=== PATIENT | male | born 1950 | race Caucasian/White ===

== ENCOUNTER → 2016-06-26 | Outpatient (CLI) | payer BC ==
[~2016-06-26] MED LIST: CETI10TA10 PO; MULT-506 PO; VALA500T60 PO
[2016-06-26 14:47] LABS: BASO % 0.5 %; BASO ABS # 0.02 K/uL (0-0.2); COMPLETE YES; EOS % 4.4 %; HEMATOCRIT 44.4 % (42-52); IG% 0.5 %; LYMPH % 29.5 %; LYMPH ABS # 1.27 K/uL (1.2-3.4); MEAN CELL VOLUME 94.1 fL (80-100); MEAN CORPUSCULAR HEMOGLOBIN 33.5 pg (25-34); MEAN CORPUSCULAR HGB CONC 35.6 g/dl (32-36); MEAN PLATELET VOLUME 10.7 fL (7.4-10.4); NEUT % 59.1 %; PLATELET COUNT 214 K/uL (130-400); RED BLOOD COUNT 4.72 M/uL (4.7-6.1)
[2016-06-26 15:07] LABS: ALT/SGPT 18 U/L (12-78); AST/SGOT 16 U/L (15-37); BLOOD UREA NITROGEN 17 mg/dl (7-18); BUN/CREATININE RATIO 18.8 (10-20); CALCIUM 9.2 mg/dl (8.5-10.1); CARBON DIOXIDE 25 mmol/L (21-32); CHLORIDE 103 mmol/L (98-107); CREATININE 0.92 mg/dl (0.60-1.40); GLUCOSE 100 mg/dl (70-99); SODIUM 139 mmol/L (136-145)
[2016-06-26 15:17] LABS: CHOLESTEROL 212 mg/dl (0-200); CHOLESTEROL/HDL RATIO 2.9; HDL CHOLESTEROL 72 mg/dl; LDL CHOLESTEROL CALCULATED 124 mg/dl; TRIGLYCERIDES 79 mg/dl (0-150); VERY LOW DENSITY LIPOPROT CALC 16 mg/dl
[2016-06-27 07:02] LABS: ESTIMATED AVERAGE GLUCOSE 114 mg/dl; HA1C FLAG Normal (Normal)
--- NOTE | 2016-07-06 07:15 | CODING QUERY MEDICAL NECESSITY ---
CQSUPPORTING DIAGNOSIS NEEDED A supporting diagnosis is required for the test/procedure performed on this patient in order for us to be reimbursed by the patient's insurance. Please provide a supporting diagnosis for the following test/procedure listed below next to the test name along with your signature. *If there is no additional diagnosis for this patient that would support the following test/procedure please document that below next to the test/procedure. Test(s)/Procedure(s) that require a supporting diagnosis: DOS 06/26/16 [facility] SPECIFIC TEST ([facility]) Provider Signature: Date: Thank you Violetta Siegel [facility] Once completed, please kindly fax back to [phone] For questions please call [phone]
== END | disposition home or self-care (01) ==
LOC: C.LAB1850 12:32
PROVIDERS: ATTEND Internal Medicine
DX: Z00.00 Encounter for general adult medical examination without abnormal findings (principal); C43.9 Malignant melanoma of skin, unspecified; E78.00 Pure hypercholesterolemia, unspecified; R73.9 Hyperglycemia, unspecified; F52.8 Other sexual dysfunction not due to a substance or known physiological condition; Z12.5 Encounter for screening for malignant neoplasm of prostate

== ENCOUNTER → 2017-09-11 | Outpatient (CLI) | payer BC ==
[2017-09-11 09:40] LABS: BASO % 0.2 %; BASO ABS # 0.01 K/uL (0-0.2); EOS % 4.4 %; EOS ABS # 0.27 K/uL (0-0.5); HEMATOCRIT 45.7 % (42-52); HEMOGLOBIN 16.2 g/dL (14.0-18.0); IG# 0.02 K/uL (0.00-0.02); LYMPH % 24.1 %; LYMPH ABS # 1.49 K/uL (1.2-3.4); MEAN CELL VOLUME 94.4 fL (80-100); MEAN CORPUSCULAR HEMOGLOBIN 33.5 pg (25-34); MEAN CORPUSCULAR HGB CONC 35.4 g/dl (32-36); MEAN PLATELET VOLUME 9.6 fL (7.4-10.4); MONO % 4.9 %; NEUT % 66.1 %; NEUT ABS # 4.09 K/uL (1.4-6.5); PLATELET COUNT 214 K/uL (130-400); RED CELL DISTRIBUTION WIDTH CV 12.6 % (11.5-14.5); RED CELL DISTRIBUTION WIDTH SD 43.9 fL (36.4-46.3); WHITE BLOOD COUNT 6.18 K/uL (4.8-10.8)
[2017-09-11 09:56] LABS: BLOOD UREA NITROGEN 18 mg/dl (7-18); CALCIUM 9.1 mg/dl (8.5-10.1); CARBON DIOXIDE 27 mmol/L (21-32); CHOLESTEROL 234 mg/dl (0-200); CREATININE 1.06 mg/dl (0.60-1.40); GLUCOSE 115 mg/dl (70-99); LDL CHOLESTEROL CALCULATED 144 mg/dl; SODIUM 138 mmol/L (136-145)
[2017-09-11 10:01] LABS: HEMOGLOBIN A1C 5.8 % (4.5-5.6)
== END | disposition home or self-care (01) ==
LOC: C.LAB1850 08:23
PROVIDERS: ATTEND Physician Assistant
DX: Z00.00 Encounter for general adult medical examination without abnormal findings (principal); K21.9 Gastro-esophageal reflux disease without esophagitis; E78.00 Pure hypercholesterolemia, unspecified; R73.9 Hyperglycemia, unspecified; M54.2 Cervicalgia; R51 Headache

== ENCOUNTER → 2017-11-18 | Outpatient (CLI) | payer BC | END | disposition home or self-care (01) | LOC: C.PATHSPEC 11:51 | PROVIDERS: ATTEND Urology | DX: R97.20 Elevated prostate specific antigen [PSA] (principal) ==

== ENCOUNTER 2024-07-01 11:44 | Inpatient (IN) ==
[2024-07-01] MEDS: SODIUM CHLORIDE 0.9% 1,000 ML IV SCH (11:56)
--- NOTE | 2024-07-01 11:56 | Emergency Department Note ---
Impression & Plan Acute hypotension Admission ED Provider Note HPI: History obtained from patient. 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 Patient states he has had the pain for several weeks, he states he was complaining of pain in the area of his left abdomen and left upper quadrant area when he was at the [facility] and he began to get hypotensive and felt ill. Blood pressure was reportedly taken and was in the 60s systolic and therefore EMS was contacted and the patient was brought to the ED. On arrival here to the ED the patient is alert, has blood pressures in the 80s, heart rate is within normal limits on my initial assessment. ROS: - Per HPI Differential Diagnosis: Volume depletion, acute kidney injury, malignant pleural effusion, pneumothorax, vasovagal event, arrhythmia, pathologic fracture, PE, ACS, amongst other potential pathologies. *Outpatient medications and allergy history reviewed. PE: General: Alert, no acute distress HEENT: Normocephalic, trachea midline Eyes: Extraocular eye movement is intact, no scleral erythema Pulmonary: Diminished breath sounds on the left side, right side breath sounds are clear Cardio: Regular rate and rhythm GI: Abdomen is soft to palpation : No suprapubic tenderness MSK: No evidence of trauma or malformation of the extremities, no edema Skin: Pleurx catheter in place to the left chest wall without surrounding erythema, otherwise no evidence of rash Neuro: Alert, no focal deficits, ambulates all extremity spontaneously without issue Psychiatric: Cooperative INDEPENDENT INTERPRETATIONS: monitoring tech: (As interpreted by myself): - An order was placed for continuous cardiac monitoring - Patient was noted to be in sinus rhythm with a rate of 90 EKG: (As interpreted by myself): Rate: 97 Rhythm: Sinus rhythm Intervals: QTc 558 ms, otherwise within normal limits ST changes: No ST elevation Time: 1152 Chest x-ray: (As interpreted by myself): Left lower lobe atelectasis with tiny left pneumothorax Interventions provided in ED: -IV fluid bolus, IV albumin Medical Decision Making: IV was established and lab work obtained, patient was IV fluid resuscitated shortly after arrival. Blood pressure did gradually improve. Lab work shows no leukocytosis, hemoglobin is stable at 13.9, platelet count is normal, CMP shows above baseline creatinine of 1.56 for which the patient was given IV fluids, BUN is 59, transaminitis and elevated bilirubin consistent with the patient's history of metastatic cancer. Troponin is negative. Procalcitonin is elevated at 2.42. CT imaging of the chest shows recurrent pleural effusion with Pleurx catheter in place with evidence of pathologic fracture at rib 11 where the patient is having pain on the left side. Also re-demonstrates left upper lobe mass consistent with the patient's history of small cell cancer. CT imaging of the abdomen pelvis did show metastatic disease that appears to be stable in comparison to previous imaging and not show any evidence of any critical findings. Patient remained somewhat hypotensive here in the ED but did improved over 100 systolic following fluid resuscitation and albumin. Given his presenting hypotension in addition to his multiple comorbidities I do feel he would benefit from admission for pain control and possibly palliative consultation as of not sure that he has many treatment options at this point. Patient was evaluated here at the bedside by pulmonology, his pleural effusion was drained by the pulmonology PA (Luis Fernando Rios). Patient was covered with IV ceftriaxone following blood cultures being obtained. I did discuss the patient's presentation with the on-call [facility] hospitalist, Dr. Terry, and the patient was placed for admission in stable condition. Consultants/Discussions held with other healthcare providers: -Hospitalist, Dr. Terry -Pulmonology, Luis Fernando Rios PA-C Disposition discussion held by myself with: -Patient Diagnosis: 1. Hypotension, acute 2. Acute kidney injury 3. Metastatic small cell lung cancer 4. Recurrent malignant pleural effusion Disposition: Admission Aguilar Zepeda DO Emergency Medicine Past Med/Surg History Problem List (Updated 07/01/24 @ 17:16 by Aguilar Zepeda DO) Acute hypotension (Acute) Advanced care planning/counseling discussion 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 Malignant pleural effusion 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 Cancer related pain 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 Lung mass Obstructive sleep apnea Primary hypertension Benign localized prostatic hyperplasia with lower urinary tract symptoms (LUTS) Elevated PSA Hypertension GERD without esophagitis Bilateral nonpulsatile tinnitus Obesity (BMI 30.0-34.9) Prediabetes (Chronic) Mixed hyperlipidemia Nasal congestion Dyspnea on exertion Former smoker Myalgia Close exposure to 2019-nCoV Ingrown toenail of left foot with infection (Acute) Laryngopharyngeal reflux (Acute) Inhibited sexual excitement (Acute) Hypercholesterolemia (Acute) Genital herpes simplex (Acute) Elevated blood pressure reading without diagnosis of hypertension (Acute) Cervicalgia (Acute) Anxiety disorder (Acute) Acid reflux disease (Acute) Nephrolithiasis Encounter for prostate cancer screening Rib pain on right side Injury Sleep apnea (Acute) cpap Medical History Osteoarthritis History of kidney stones Malignant melanoma Surgical History History of colonoscopy History of prostate biopsy History of left inguinal hernia repair History of melanoma excision History of Mohs micrographic surgery for skin cancer History of wisdom tooth extraction History of carpal tunnel release of both wrists Status post correction of deviated nasal septum History of tonsillectomy and adenoidectomy Family History Brother Family history of diabetes mellitus Family hx colonic polyps Other No family history of adverse response to anesthesia Social History Smoking Status: Never smoker Tobacco Type: Cigarettes Age Started Using Tobacco: 16; Age Quit Using Tobacco: 46; packs per day: 1; Second Hand Exposure: No; Do You Dip or Chew Tobacco: No; Hx Alcohol Use: Yes Alcohol type: hard liquor Hx Substance Use: No Preferred Language: Greenlandic Communication Ability: Effective Aircraft Communicator Required: No Beliefs That Will Affect Care: None marital status: Current Living Situation: Spouse current occupational status: retired Feels Safe at Home: Yes Dental Care, Regularly: Yes Seatbelt Use: always Sunscreen Use: Yes Assistive Devices: None Allergies Allergies Allergy/AdvReac Type Severity Reaction Status Date / Time amoxicillin [From Augmentin] Allergy Intermediate stomach Verified 06/25/24 14:32 pain clavulanic acid Allergy Intermediate stomach Verified 06/25/24 14:32 [From Augmentin] pain levofloxacin [From Levaquin] Allergy Mild . Verified 06/30/24 11:36 lisinopril AdvReac Mild Cough Verified 06/30/24 11:36 Home Meds Home Medications Medication Instructions Recorded Confirmed multivitamin 1 tab PO QAM 05/18/20 07/01/24 cholecalciferol (vitamin D3) 25 25 mcg PO DAILY 04/30/24 07/01/24 mcg (1,000 unit) capsule OxyContin 20 mg PO BID 06/30/24 07/01/24 metformin 500 mg tablet,extended 1,000 mg PO BID 06/30/24 07/01/24 release 24 hr Previous Rx's Medication Instructions Recorded valacyclovir 500 mg tablet 500 mg PO QAM #90 tabs 09/23/23 fluticasone propionate 50 1 spray intranasal BID #16 grams 09/24/23 mcg/actuation nasal spray,suspension omeprazole 40 mg capsule,delayed 40 mg PO DAILY #90 caps 09/30/23 release tamsulosin 0.4 mg capsule 0.4 mg PO DAILY #90 caps 11/20/23 tadalafil 20 mg tablet 20 mg PO DAILY #90 tabs 12/20/23 olmesartan 5 mg tablet 5 mg PO DAILY #90 tabs 03/06/24 rosuvastatin 10 mg tablet 10 mg PO DAILY #90 tabs 03/06/24 albuterol sulfate 90 mcg/actuation 2 puff inhalation Q6H PRN 05/23/24 aerosol inhaler shortness of breath or wheezing #8.5 grams albuterol 90 mcg-budesonide 80 2 inh inhalation QID PRN shortness 05/26/24 mcg/actuation HFA aerosol inhaler of breath #5.9 grams (Airsupra) azelastine 137 mcg (0.1 %) nasal 1 spray intranasal BID #30 mL 06/03/24 spray apixaban 5 mg tablet (Eliquis) 5 mg PO BID #180 tabs 06/23/24 benzonatate 200 mg capsule 200 mg PO TID PRN cough #30 caps 06/23/24 lorazepam 0.5 mg tablet 0.5 mg PO BID PRN 06/23/24 anxiety/panic/insomnia #60 tabs paroxetine HCl 20 mg tablet 20 mg PO HS #30 tabs 06/23/24 mirtazapine 7.5 mg tablet 7.5 mg PO DAILY PRN insomnia #30 06/25/24 tabs sennosides 8.6 mg tablet (Senna 8.6 mg PO BID PRN constipation #60 06/25/24 Laxative) tabs Results & Data (ED) Vital Signs Vital Signs - 24 hr 03/12/25 11:50 07/01/24 11:56 07/01/24 12:00 Temperature 36.5 C Temperature Source Oral Pulse Rate 92 H Pulse Rate [Apical] Pulse Rate from SpO2 Sensor Respiratory Rate 18 Respiratory Effort / Characteristics Respiratory Depth Blood Pressure 83/63 L 79/61 L Blood Pressure [Right Arm] Blood Pressure Mean 69 69 Blood Pressure Mean [Right Arm] Pulse Oximetry 94 93 Oxygen Delivery Method Room Air Room Air Oxygen Flow Rate Sepsis Recent Fever Within 48 Hours No Sepsis New/Unexplained Change in Mental Status No Sepsis Action Taken by Nursing No Action Required Oxygen Flow Rate - Titration Pulse Oximetry Post Tiitration 07/01/24 12:03 07/01/24 12:10 07/01/24 12:14 Temperature Temperature Source Pulse Rate 92 H Pulse Rate [Apical] Pulse Rate from SpO2 Sensor 92 H Respiratory Rate 23 Respiratory Effort / Characteristics Respiratory Depth Blood Pressure 68/57 L 84/63 L Blood Pressure [Right Arm] Blood Pressure Mean 59 67 Blood Pressure Mean [Right Arm] Pulse Oximetry 93 Oxygen Delivery Method Oxygen Flow Rate 2 Sepsis Recent Fever Within 48 Hours Sepsis New/Unexplained Change in Mental Status Sepsis Action Taken by Nursing Oxygen Flow Rate - Titration Pulse Oximetry Post Tiitration 07/01/24 12:18 07/01/24 12:20 07/01/24 12:27 Temperature Temperature Source Pulse Rate 90 92 H Pulse Rate [Apical] Pulse Rate from SpO2 Sensor 91 H 88 Respiratory Rate 23 20 Respiratory Effort / Characteristics Respiratory Depth Blood Pressure 87/56 L Blood Pressure [Right Arm] Blood Pressure Mean 65 Blood Pressure Mean [Right Arm] Pulse Oximetry 92 95 Oxygen Delivery Method Oxygen Flow Rate 2 2 Sepsis Recent Fever Within 48 Hours Sepsis New/Unexplained Change in Mental Status Sepsis Action Taken by Nursing Oxygen Flow Rate - Titration Pulse Oximetry Post Tiitration 07/01/24 12:28 07/01/24 12:30 07/01/24 12:36 Temperature Temperature Source Pulse Rate 90 Pulse Rate [Apical] Pulse Rate from SpO2 Sensor 89 Respiratory Rate 18 Respiratory Effort / Characteristics Respiratory Depth Blood Pressure 96/45 L Blood Pressure [Right Arm] Blood Pressure Mean 80 Blood Pressure Mean [Right Arm] Pulse Oximetry 88 L 93 Oxygen Delivery Method Room Air Oxygen Flow Rate 2 Sepsis Recent Fever Within 48 Hours Sepsis New/Unexplained Change in Mental Status Sepsis Action Taken by Nursing Oxygen Flow Rate - Titration 2 Pulse Oximetry Post Tiitration 93 03/12/25 12:40 07/01/24 12:45 07/01/24 12:51 Temperature Temperature Source Pulse Rate 90 Pulse Rate [Apical] Pulse Rate from SpO2 Sensor 89 Respiratory Rate 13 Respiratory Effort / Characteristics Respiratory Depth Blood Pressure 91/61 L 91/62 L Blood Pressure [Right Arm] Blood Pressure Mean 63 63 Blood Pressure Mean [Right Arm] Pulse Oximetry 93 Oxygen Delivery Method Oxygen Flow Rate 2 Sepsis Recent Fever Within 48 Hours Sepsis New/Unexplained Change in Mental Status Sepsis Action Taken by Nursing Oxygen Flow Rate - Titration Pulse Oximetry Post Tiitration 07/01/24 12:57 07/01/24 13:13 07/01/24 13:15 Temperature Temperature Source Pulse Rate 91 H 92 H 86 Pulse Rate [Apical] Pulse Rate from SpO2 Sensor 90 86 Respiratory Rate 14 20 Respiratory Effort / Characteristics Respiratory Depth Blood Pressure Blood Pressure [Right Arm] Blood Pressure Mean Blood Pressure Mean [Right Arm] Pulse Oximetry 93 95 Oxygen Delivery Method Oxygen Flow Rate 2 2 Sepsis Recent Fever Within 48 Hours Sepsis New/Unexplained Change in Mental Status Sepsis Action Taken by Nursing Oxygen Flow Rate - Titration Pulse Oximetry Post Tiitration 07/01/24 13:17 07/01/24 13:18 07/01/24 13:20 Temperature Temperature Source Pulse Rate 85 Pulse Rate [Apical] 85 Pulse Rate from SpO2 Sensor 80 Respiratory Rate 18 22 Respiratory Effort / Characteristics Respiratory Depth Blood Pressure 94/64 L Blood Pressure [Right Arm] 104/66 Blood Pressure Mean 72 Blood Pressure Mean [Right Arm] 78 Pulse Oximetry 95 94 Oxygen Delivery Method Nasal Cannula Oxygen Flow Rate 2 2 Sepsis Recent Fever Within 48 Hours Sepsis New/Unexplained Change in Mental Status Sepsis Action Taken by Nursing Oxygen Flow Rate - Titration Pulse Oximetry Post Tiitration 07/01/24 13:27 07/01/24 13:30 07/01/24 13:36 Temperature Temperature Source Pulse Rate 88 84 Pulse Rate [Apical] Pulse Rate from SpO2 Sensor 88 85 Respiratory Rate 13 12 Respiratory Effort / Characteristics Respiratory Depth Blood Pressure 107/68 Blood Pressure [Right Arm] Blood Pressure Mean 85 Blood Pressure Mean [Right Arm] Pulse Oximetry 94 96 Oxygen Delivery Method Oxygen Flow Rate 2 2 Sepsis Recent Fever Within 48 Hours Sepsis New/Unexplained Change in Mental Status Sepsis Action Taken by Nursing Oxygen Flow Rate - Titration Pulse Oximetry Post Tiitration 07/01/24 13:42 07/01/24 13:50 07/01/24 13:50 Temperature Temperature Source Pulse Rate 88 Pulse Rate [Apical] Pulse Rate from SpO2 Sensor 88 Respiratory Rate 15 Respiratory Effort / Characteristics Respiratory Depth Blood Pressure 104/66 104/66 Blood Pressure [Right Arm] Blood Pressure Mean 72 72 Blood Pressure Mean [Right Arm] Pulse Oximetry 93 Oxygen Delivery Method Oxygen Flow Rate 2 Sepsis Recent Fever Within 48 Hours Sepsis New/Unexplained Change in Mental Status Sepsis Action Taken by Nursing Oxygen Flow Rate - Titration Pulse Oximetry Post Tiitration 07/01/24 13:51 07/01/24 13:51 07/01/24 13:57 Temperature Temperature Source Pulse Rate 87 86 Pulse Rate [Apical] 90 Pulse Rate from SpO2 Sensor 81 86 Respiratory Rate 18 19 20 Respiratory Effort / Characteristics Non-Labored Spontaneous Respiratory Depth Normal Blood Pressure Blood Pressure [Right Arm] 104/66 Blood Pressure Mean Blood Pressure Mean [Right Arm] 78 Pulse Oximetry 95 95 94 Oxygen Delivery Method Nasal Cannula Oxygen Flow Rate 2 2 2 Sepsis Recent Fever Within 48 Hours Sepsis New/Unexplained Change in Mental Status Sepsis Action Taken by Nursing Oxygen Flow Rate - Titration Pulse Oximetry Post Tiitration 07/01/24 14:00 07/01/24 14:00 07/01/24 14:10 Temperature Temperature Source Pulse Rate Pulse Rate [Apical] Pulse Rate from SpO2 Sensor Respiratory Rate Respiratory Effort / Characteristics Respiratory Depth Blood Pressure 101/66 101/66 99/66 L Blood Pressure [Right Arm] Blood Pressure Mean 77 77 75 Blood Pressure Mean [Right Arm] Pulse Oximetry Oxygen Delivery Method Oxygen Flow Rate Sepsis Recent Fever Within 48 Hours Sepsis New/Unexplained Change in Mental Status Sepsis Action Taken by Nursing Oxygen Flow Rate - Titration Pulse Oximetry Post Tiitration 07/01/24 14:12 07/01/24 14:30 07/01/24 17:00 Temperature Temperature Source Pulse Rate 87 Pulse Rate [Apical] 85 91 H Pulse Rate from SpO2 Sensor 87 Respiratory Rate 15 20 18 Respiratory Effort / Characteristics Non-Labored Spontaneous Respiratory Depth Blood Pressure Blood Pressure [Right Arm] 106/73 88/62 L Blood Pressure Mean Blood Pressure Mean [Right Arm] 84 70 Pulse Oximetry 95 94 95 Oxygen Delivery Method Nasal Cannula Room Air Oxygen Flow Rate 2 2 Sepsis Recent Fever Within 48 Hours Sepsis New/Unexplained Change in Mental Status Sepsis Action Taken by Nursing Oxygen Flow Rate - Titration Pulse Oximetry Post Tiitration Laboratory Data 07/01/24 11:59 07/01/24 11:59 Lab Results 07/01/24 07/01/24 Range/Units 11:59 17:00 WBC 10.30 (4.8-10.8) K/ul RBC 4.27 L (4.70-6.10) M/uL Hgb 13.9 L (14.0-18.0) g/dl Hct 41.6 L (42.0-52.0) % MCV 97.4 (80.0-100.0) fL MCH 32.6 (25.0-34.0) pg MCHC 33.4 (32.0-36.0) g/dL RDW Std Deviation 45.6 (36.4-46.3) fL RDW Coeff of Toribio 12.7 (11.5-14.5) % Plt Count 217 (130-400) K/uL MPV 11.0 (9.4-12.4) fL Immature Gran % (Auto) 2.5 % Neut % (Auto) 80.9 % Lymph % (Auto) 9.9 % Coles % (Auto) 6.4 % Eos % (Auto) 0.1 % Baso % (Auto) 0.2 % Neut # (Auto) 8.33 H (1.40-6.50) K/uL Lymph # (Auto) 1.02 L (1.20-3.40) K/uL Coles # (Auto) 0.66 H (0.11-0.59) K/uL Eos # (Auto) 0.01 (0.00-0.50) K/uL Baso # (Auto) 0.02 (0.00-0.20) K/uL Immature Gran # (Auto) 0.26 H (0.01-0.20) K/uL Sodium 142 (136-145) mmol/L Potassium 4.5 (3.5-5.1) mmol/L Chloride 106 (98-107) mmol/L Carbon Dioxide 31 (21-32) mmol/L Anion Gap 5 (3-11) BUN 59 H (6-23) mg/dl Creatinine 1.56 H (0.6-1.4) mg/dl Est Cr Clr Drug Dosing 46.3 ml/min eGFR 46.61 BUN/Creatinine Ratio 37.8 H (10-20) Glucose 93 (70-99(Fasting)) mg/dl Lactate 2.0 (0.4-2.0) mmol/L Calcium 10.8 H (8.6-10.3) mg/dl Magnesium 2.2 (1.7-2.4) mg/dl Total Bilirubin 1.1 H (0.2-1.0) mg/dl Direct Bilirubin 0.6 H (0-0.2) mg/dl AST 116 H (13-39) U/L ALT 109 H (7-52) U/L Alkaline Phosphatase 499 H (34-104) U/L Troponin I High Sens 10.6 (0-20) pg/ml Total Protein 5.3 L (6.0-8.3) gm/dl Albumin 2.9 L (3.4-5.0) gm/dl Procalcitonin 2.42 H (0-0.5) ng/ml Urine Color Dark Yellow Urine Appearance Cloudy A (Clear) Urine pH 5.0 (4.5-7.5) Ur Specific [place] 1.038 H (1.000-1.030) Urine Protein 1+ H (Negative) Urine Glucose (UA) Negative (Negative) Urine Ketones Trace H (Negative) Urine Blood Negative (Negative) Urine Nitrite Negative (Negative) Urine Bilirubin 1+ H (Negative) Urine Urobilinogen Negative (Negative) Ur Leukocyte Esterase Trace H (Negative) Urine WBC (Auto) 0-5 (0-5) /hpf Urine RBC (Auto) 0-2 (0-2) /hpf U Hyaline Cast (Auto) >20 H (0-2) /lpf U Epithel Cells (Auto) 11-20 H (0-2) /hpf Urine Bacteria (Auto) None Seen (None Seen) Hyaline Casts Present A (None Presnt) /lpf Granular Casts Present A (None Prsent) /lpf Urine Mucus Present A (None Prsent) Administered Medications Discontinued Medications Sodium Chloride (Nss) 1,000 mls @ 999 mls/hr IV .Q1H1M RAMESH Stop: 07/01/24 14:00 Last Infusion: 07/01/24 14:15 Dose: Infused Documented By: Admin: 07/01/24 13:26 Dose: 999 mls/hr Documented By: Infusion: 07/01/24 13:26 Dose: Infused Documented By: Admin: 07/01/24 11:56 Dose: 999 mls/hr Documented By: NIKITA Albumin Human (Albumin 5%) 250 mls @ 500 mls/hr IV ONE ONE Stop: 07/01/24 14:31 Last Admin: 07/01/24 14:44 Dose: 500 mls/hr Documented By: NIKITA Cefepime HCl (Maxipime 2000mg) 2,000 mg in 20 mls @ 5 mls/min IV NOW STA; Protocol Stop: 07/01/24 14:13 Last Admin: 07/01/24 14:45 Dose: 5 mls/min Documented By: NIKITA Ioversol (Optiray 320 100ml) 90 ml IV ONCE ONE Stop: 07/01/24 13:07 Last Admin: 07/01/24 13:07 Dose: 90 ml Documented By: JOSHUA Imaging Data Radiologist's Impression: Chest X-Ray 07/01/24 11:54 XR chest 1V portable CLINICAL HISTORY: Sepsis left chest tube COMPARISON STUDY: 06/30/2024 FINDINGS: Single view chest demonstrates recurrence of a tiny left apical pneumothorax. The findings are otherwise unchanged. The left pleural effusion is unchanged and the left chest tube is in similar position. There is persistent lower lobe and lingular atelectasis. There is nodular prominence of the right hilum which may be vascular superimposition. Cannot exclude lymphadenopathy. IMPRESSION: Recurrence of a tiny left apical pneumothorax. Right hilar prominence. ACT 112: Negative or not required by law. Electronically signed by: Sparkle Parker M.D. 07/01/2024 12:32 PM Abdomen/Pelvis CT 07/01/24 12:22 CT OF THE ABDOMEN AND PELVIS WITH CONTRAST CLINICAL HISTORY: Left-sided pain. Metastatic disease. COMPARISON STUDY: CT of the abdomen and pelvis June 09, 2024. PET/CT June 24, 2024. TECHNIQUE: Following IV administration of 90 mL of Optiray, axial images of the abdomen and pelvis were obtained from the lung bases to the proximal femurs. Images were reviewed in the axial, sagittal, and coronal planes. IV contrast was administered without complication. Automated exposure control was utilized for the study. A dose lowering technique was utilized adhering to the principles of ALARA. FINDINGS: A left Pleurx catheter, left pleural effusion, thoracic lymphadenopathy, and small left pneumothorax are better depicted on the chest CT which will be reported separately. There is no pneumatosis, free air or portal venous gas. Extensive hepatic metastases are similar to PET/CT of July 04, 2024. These have increased since CT of June 09, 2024. The liver is enlarged. There is no biliary or pancreatic ductal dilatation. Abdominal lymphadenopathy is similar to recent PET/CT. Portacaval lymph node on image 129 measures 2.5 x 2.7 cm. There is no hydronephrosis. Spleen, adrenal glands and pancreas are unremarkable. No evidence for a bowel obstruction. Colonic diverticulosis without evidence for acute diverticulitis. Sclerotic skeletal lesions are better depicted on recent PET/CT. A lesion within the lateral left 11th rib with probable pathologic fracture is noted. There are no pathologic fractures within the lumbar spine. IMPRESSION: 1. Extensive hepatic metastases and abdominal lymphadenopathy since, similar to PET/CT of June 24, 2024. 2. No bowel obstruction. 3. Skeletal metastases, better depicted on PET/CT. Probable pathologic fracture of the lateral left 11th rib. ACT 112: Negative or not required by law. Electronically signed by: Rajinder Pérez M.D. 07/01/2024 1:[address] 07/01/24 12:22 CT OF THE CHEST WITH IV CONTRAST CLINICAL HISTORY: Left-sided chest pain. Small cell lung cancer. COMPARISON STUDY: Chest CT June 05, 2024. PET/CT June 24, 2024. Chest radiograph performed earlier today. TECHNIQUE: Following IV administration of 90 mL of Optiray, helical axial images of the chest were obtained. Sagittal and coronal reconstructions were viewed as well as maximal intensity projections on an independent 3-D workstation. Automated exposure control was utilized for the study. A dose lowering technique was utilized adhering to the principles of ALARA. CT DOSE: 2466.31 mGy.cm FINDINGS: A Pleurx catheter within the anterior left hemithorax is in place. Moderate left pleural effusion has decreased in size since PET/CT of June 24, 2014. There is a small pneumothorax. Multiple enhancing pleural lesions are noted. Additional extrapleural lesions are present. Extensive thoracic lymphadenopathy is similar to PET/CT of June 24, 2024. A right paratracheal lymph node on image 52 of 229 measures 3.7 x 2.6 cm. Central left upper lobe mass which results in occlusion of the left upper lobe bronchus and left upper lobe collapse is similar to prior PET/CT. Measurements are difficult to obtain given adjacent lymphadenopathy. There is mass effect with narrowing upon several pulmonary arteries. The pulmonary arteries are not well opacified on this examination. There is no right pneumothorax. Size of the heart is normal. There is no pericardial effusion. Dilatation of the ascending aorta measuring 4.6 cm is unchanged. Multiple sclerotic skeletal lesions are better depicted on prior PET/CT. A mildly displaced pathologic fracture the anterior left 11th rib is noted. Abdomen and pelvis CT will be reported separately. Upper abdominal adenopathy in extensive hepatic metastases are better depicted on that exam. IMPRESSION: 1. Pleurx catheter within the left anterior hemithorax. Moderate-sized malignant left pleural effusion, decreased in size since PET/CT of June 24, 2024. Small left pneumothorax. 2. No significant change in extensive thoracic, left supraclavicular and upper abdominal lymphadenopathy since PET/CT of June 24, 2024. 3. Left upper lobe mass with resultant left upper lobe collapse, similar to PET/CT. 4. Skeletal metastases, including a pathologic fracture of the anterior left 11th rib, depicted on the abdominal CT which will be reported separately. 5. Extensive hepatic metastases. ACT 112: Negative or not required by law. Electronically signed by: Rajinder Pérez M.D. 07/01/2024 1:32 PM Discharge Plan Visit Data Chief Complaint: Hypotension ED Provider: Aguilar Zepeda Discharge Problem: Acute hypotension Forms Stand Alone Forms: [facility] Prescriptions Prescriptions: No Action valacyclovir 500 mg tablet 500 mg PO QAM Qty: 90 3RF fluticasone propionate 50 mcg/actuation spray,suspension 1 spray intranasal BID Qty: 16 2RF Rx Instructions: administer into each nostril omeprazole 40 mg capsule,delayed release(DR/EC) 40 mg PO DAILY Qty: 90 3RF tamsulosin 0.4 mg capsule 0.4 mg PO DAILY Qty: 90 3RF tadalafil 20 mg tablet 20 mg PO DAILY Qty: 90 3RF sennosides [Senna Laxative] 8.6 mg tablet 8.6 mg PO BID PRN (Reason: constipation) Qty: 60 0RF mirtazapine 7.5 mg tablet 7.5 mg PO DAILY PRN (Reason: insomnia) Qty: 30 2RF benzonatate 200 mg capsule 200 mg PO TID PRN (Reason: cough) Qty: 30 0RF paroxetine HCl 20 mg tablet 20 mg PO HS Qty: 30 2RF Eliquis 5 mg tablet 5 mg PO BID Qty: 180 0RF lorazepam 0.5 mg tablet 0.5 mg PO BID PRN (Reason: anxiety/panic/insomnia) Qty: 60 0RF rosuvastatin 10 mg tablet 10 mg PO DAILY Qty: 90 3RF olmesartan 5 mg tablet 5 mg PO DAILY Qty: 90 3RF cholecalciferol (vitamin D3) 25 mcg (1,000 unit) capsule 25 mcg PO DAILY azelastine 137 mcg (0.1 %) spray,non-aerosol 1 spray intranasal BID Qty: 30 3RF Airsupra 90-80 mcg/actuation HFA aerosol inhaler 2 inh inhalation QID PRN (Reason: shortness of breath) Qty: 5.9 1RF albuterol sulfate 90 mcg/actuation HFA aerosol inhaler 2 puff inhalation Q6H PRN (Reason: shortness of breath or wheezing) Qty: 8.5 0RF multivitamin Tablet 1 tab PO QAM OxyContin 20 mg tablet 20 mg PO BID metformin 500 mg tablet extended release 24 hr 1,000 mg PO BID Referrals Referrals: An Rowe MD [Primary Care Provider] -
[2024-07-01 12:23] LABS: Basophils # (auto) 0.02 K/uL (0.00-0.20); Basophils % (auto) 0.2 %; Eosinophils # (auto) 0.01 K/uL (0.00-0.50); Eosinophils % (auto) 0.1 %; Hematocrit (blood only) 41.6 % (42.0-52.0); Hemoglobin 13.9 g/dl (14.0-18.0); Immature Granulocytes # (auto) 0.26 K/uL (0.01-0.20); Immature Granulocytes % (auto) 2.5 %; Lymphocytes # (auto) 1.02 K/uL (1.20-3.40); Lymphocytes % (auto) 9.9 %; Mean Corpuscular Hemoglobin 32.6 pg (25.0-34.0); Mean Corpuscular Hgb Conc 33.4 g/dL (32.0-36.0); Mean Corpuscular Volume 97.4 fL (80.0-100.0); Monocytes # (auto) 0.66 K/uL (0.11-0.59); Monocytes % (auto) 6.4 %; Neutrophils # (auto) 8.33 K/uL (1.40-6.50); Neutrophils % (auto) 80.9 %; Platelet Count 217 K/uL (130-400); RDW Coefficient of Variation 12.7 % (11.5-14.5); RDW Standard Deviation 45.6 fL (36.4-46.3); Red Blood Count 4.27 M/uL (4.70-6.10)
--- NOTE | 2024-07-01 12:33 | XRay Report ---
XR chest 1V portable CLINICAL HISTORY: Sepsis left chest tube COMPARISON STUDY: 06/30/2024 FINDINGS: Single view chest demonstrates recurrence of a tiny left apical pneumothorax. The findings are otherwise unchanged. The left pleural effusion is unchanged and the left chest tube is in similar position. There is persistent lower lobe and lingular atelectasis. There is nodular prominence of th e right hilum which may be vascular superimposition. Cannot exclude lymphadenopathy. IMPRESSION: Recurrence of a tiny left apical pneumothorax. Right hilar prominence. ACT 112: Negative or not required by law. Electronically signed by: Sparkle Parker M.D. 07/01/2024 12:32 PM
[2024-07-01 12:44] LABS: Albumin Level 2.9 gm/dl (3.4-5.0); BUN Creatinine Ratio 37.8 (10-20); Bilirubin Direct 0.6 mg/dl (0-0.2); Bilirubin,Total 1.1 mg/dl (0.2-1.0); Calcium 10.8 mg/dl (8.6-10.3); Creatinine Clr Calc Pharmacy 46.3 ml/min; Magnesium 2.2 mg/dl (1.7-2.4); Potassium 4.5 mmol/L (3.5-5.1); Total Protein 5.3 gm/dl (6.0-8.3)
[2024-07-01 12:48] LABS: Troponin I High Sensitivity 10.6 pg/ml (0-20)
[2024-07-01] MEDS: OPTIRAY 320 100ml IV ONE (13:07)
--- NOTE | 2024-07-01 13:34 | CT Scan Report ---
CT OF THE CHEST WITH IV CONTRAST CLINICAL HISTORY: Left-sided chest pain. Small cell lung cancer. COMPARISON STUDY: Chest CT June 05, 2024. PET/CT June 24, 2024. Chest radiograph performed earli er today. TECHNIQUE: Following IV administration of 90 mL of Optiray, helical axial images of the chest were o btained. Sagittal and coronal reconstructions were viewed as well as maximal intensity projections o n an independent 3-D workstation. Automated exposure control was utilized for the study. A dose low ering technique was utilized adhering to the principles of ALARA. CT DOSE: 2466.31 mGy.cm FINDINGS: A Pleurx catheter within the anterior left hemithorax is in place. Moderate left pleural e ffusion has decreased in size since PET/CT of June 24, 2014. There is a small pneumothorax. Multiple enhancing pleural lesions are noted. Additional extrapleural lesions are present. Extensive thoracic lymphadenopathy is similar to PET/CT of June 24, 2024. A right paratracheal lymph node on image 52 of 229 measures 3.7 x 2.6 cm. Central left upper lobe mass which results in occlusion of the left upper lobe bronchus and left upper lobe collapse is similar to prior PET/CT. Measurements are difficult to obtain given adjacent lymphadenopathy. There is mass effect with narrowing upon several pulmonary ar teries. The pulmonary arteries are not well opacified on this examination. There is no right pneumoth orax. Size of the heart is normal. There is no pericardial effusion. Dilatation of the ascending aort a measuring 4.6 cm is unchanged. Multiple sclerotic skeletal lesions are better depicted on prior PET /CT. A mildly displaced pathologic fracture the anterior left 11th rib is noted. Abdomen and pelvis C T will be reported separately. Upper abdominal adenopathy in extensive hepatic metastases are better depicted on that exam. IMPRESSION: 1. Pleurx catheter within the left anterior hemithorax. Moderate-sized malignant left pleural effusio n, decreased in size since PET/CT of June 24, 2024. Small left pneumothorax. 2. No significant change in extensive thoracic, left supraclavicular and upper abdominal lymphadenopa thy since PET/CT of June 24, 2024. 3. Left upper lobe mass with resultant left upper lobe collapse, similar to PET/CT. 4. Skeletal metastases, including a pathologic fracture of the anterior left 11th rib, depicted on e abdominal CT which will be reported separately. 5. Extensive hepatic metastases. ACT 112: Negative or not required by law. Electronically signed by: Rajinder Pérez M.D. 07/01/2024 1:32 PM
--- NOTE | 2024-07-01 13:58 | CT Scan Report ---
CT OF THE ABDOMEN AND PELVIS WITH CONTRAST CLINICAL HISTORY: Left-sided pain. Metastatic disease. COMPARISON STUDY: CT of the abdomen and pelvis June 09, 2024. PET/CT June 24, 2024. TECHNIQUE: Following IV administration of 90 mL of Optiray, axial images of the abdomen and pelvis we re obtained from the lung bases to the proximal femurs. Images were reviewed in the axial, sagittal, and coronal planes. IV contrast was administered without complication. Automated exposure control wa s utilized for the study. A dose lowering technique was utilized adhering to the principles of ALARA . FINDINGS: A left Pleurx catheter, left pleural effusion, thoracic lymphadenopathy, and small left pne umothorax are better depicted on the chest CT which will be reported separately. There is no pneumato sis, free air or portal venous gas. Extensive hepatic metastases are similar to PET/CT of July 04. These have increased since CT of June 09, 2024. The liver is enlarged. There is no biliary o r pancreatic ductal dilatation. Abdominal lymphadenopathy is similar to recent PET/CT. Portacaval lym ph node on image 129 measures 2.5 x 2.7 cm. There is no hydronephrosis. Spleen, adrenal glands and pa ncreas are unremarkable. No evidence for a bowel obstruction. Colonic diverticulosis without evidence for acute diverticulitis. Sclerotic skeletal lesions are better depicted on recent PET/CT. A lesion within the lateral left 11th rib with probable pathologic fracture is noted. There are no pathologic fractures within the lumbar spine. IMPRESSION: 1. Extensive hepatic metastases and abdominal lymphadenopathy since, similar to PET/CT of June 24. 2. No bowel obstruction. 3. Skeletal metastases, better depicted on PET/CT. Probable pathologic fracture of the lateral left 1 1th rib. ACT 112: Negative or not required by law. Electronically signed by: Rajinder Pérez M.D. 07/01/2024 1:56 PM
[2024-07-01] MEDS: ALBUMIN 5% 250 ML IV ONE (14:44)
[2024-07-01] MEDS: CEFEPIME 2000MG 2,000 MG/20 ML SYR IV STA (14:45)
--- NOTE | 2024-07-01 15:52 | Pulmonary Consultation ---
Date of Consultation July 01, 2024 Assessment & Plan (1) Malignant pleural effusion: In the setting of extensive stage primary small cell lung cancer. PleurX catheter placed yesterday. There appears to be an area of trapped lung. 2500 mL of serosanguineous fluid was drained off yesterday. An additional 750 mL was drained today prior to the patient having discomfort. We will clamp the tube for now given his discomfort. Follow-up chest x-ray in the morning. If he were to develop chest discomfort would recommend immediate chest x-ray +/- resuming back to suction. (2) Extensive stage primary small cell carcinoma of lung: Scheduled to start induction chemotherapy today, however he was found to be hypotensive. Defer plans for chemotherapy to hematology/oncology moving forward. (3) 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: Patient with LEFT-sided anterior chest pain with findings of occult rib fracture. Likely resulting in his pain. (4) Advanced care planning/counseling discussion: Had an extensive conversation with the patient and family present reviewing his extensive metastatic small cell lung cancer burden and concerning symptoms. Patient has had significant output from his chest tube. Theoretically, this should improve with the induction of chemotherapy, but at this point the patient has had difficulty receiving that secondary to pain associated with occult fracture as well as hypotension. While we address these topics, the patient becomes tearful and states that he has had significant discomfort and is uncertain if this is something he wishes to proceed with. We did broach the subject of care planning moving forward including full code versus limited CODE STATUS, versus more of a comfort based approach and palliative moving forward. At this point, he is fine with current treatment. He does not want chest compressions. He does not want shocks. He is on the fence about vasopressors, but specifically reports he would not want them for any extended period of time. He is uncertain about cardiac dysrhythmia medications. Additionally, he is uncertain that he would wish to undergo endotracheal intubation. He is going to discuss this with his family and provide us with a more extensive list, however he does reiterate that he certainly does not want to be uncomfortable and if her symptoms were to decline, he would be more likely to go towards a comfort based approach focusing on quality of life rather than quantity at this juncture. Plan I have personally spent 45 minutes of critical care time in the direct managemen t of this patient. This is a life/limb threatening event. This includes time spent evaluating patient, direct bedside care, chart review, placing orders, interpretation of diagnostic studies, discussion with consultants, patient, and family members, as well as other required patient management activities. This time is exclusive of all separately billable procedures, and teaching time and separate from and in addition to any other critical care service time. History of Present Illness History of Present Illness Patient is a 74-year-old male with an unfortunate recent diagnosis of widely metastatic small cell lung cancer and new onset A-fib. Patient with recurrent LEFT-sided malignant effusion. He had undergone initial thoracentesis on 06/15/2024 with removal of 1000 mL of pleural fluid. During that diagnosis, he underwent a supraclavicular RIGHT sided lymph node biopsy which was positive for metastatic small cell disease. Pleural fluid was also positive for small cell cancer. Unfortunately, he had recurrence of the effusion and was seen by the pulmonary clinic in the outpatient setting and arranged to have Pleurx catheter placed for symptom management. He underwent Pleurx catheter placement yesterday. There did appear to be an area of trapped lung after procedure and he remained on suction for a few hours. This resolved and he was discharged home. He was noted to have discomfort to the LEFT-sided chest with palpation yesterday. He was [facility] today with attempts at induction of chemotherapy, however it does not appear as though this medication was started before he developed pain and associated hypotension. He was brought to the emergency department and received resuscitative IV fluids. His blood pressure remained stable. He is complaining of pain to the LEFT-sided anterior chest wall. No palpitations. No hemoptysis. He has a history of tobacco abuse and pipe smoking. No family history of lung cancer. Brother of prostate cancer. Allergies Allergy/AdvReac Type Severity Reaction Status Date / Time amoxicillin [From Augmentin] Allergy Intermediate stomach Verified 06/25/24 14:32 pain clavulanic acid Allergy Intermediate stomach Verified 06/25/24 14:32 [From Augmentin] pain levofloxacin [From Levaquin] Allergy Mild . Verified 06/30/24 11:36 lisinopril AdvReac Mild Cough Verified 06/30/24 11:36 Home Medications Medication Instructions Recorded Confirmed Type multivitamin 1 tab PO QAM 05/18/20 07/01/24 History valacyclovir 500 mg tablet 500 mg PO QAM #90 tabs 09/23/23 07/01/24 Rx fluticasone propionate 50 1 spray intranasal BID #16 grams 09/24/23 07/01/24 Rx mcg/actuation nasal spray,suspension omeprazole 40 mg capsule,delayed 40 mg PO DAILY #90 caps 09/30/23 07/01/24 Rx release tamsulosin 0.4 mg capsule 0.4 mg PO DAILY #90 caps 11/20/23 07/01/24 Rx tadalafil 20 mg tablet 20 mg PO DAILY #90 tabs 12/20/23 07/01/24 Rx olmesartan 5 mg tablet 5 mg PO DAILY #90 tabs 03/06/24 07/01/24 Rx rosuvastatin 10 mg tablet 10 mg PO DAILY #90 tabs 03/06/24 07/01/24 Rx cholecalciferol (vitamin D3) 25 25 mcg PO DAILY 04/30/24 07/01/24 History mcg (1,000 unit) capsule albuterol sulfate 90 mcg/actuation 2 puff inhalation Q6H PRN 05/23/24 07/01/24 Rx aerosol inhaler shortness of breath or wheezing #8.5 grams albuterol 90 mcg-budesonide 80 2 inh inhalation QID PRN shortness 05/26/24 07/01/24 Rx mcg/actuation HFA aerosol inhaler of breath #5.9 grams (Airsupra) azelastine 137 mcg (0.1 %) nasal 1 spray intranasal BID #30 mL 06/03/24 07/01/24 Rx spray apixaban 5 mg tablet (Eliquis) 5 mg PO BID #180 tabs 06/23/24 07/01/24 Rx benzonatate 200 mg capsule 200 mg PO TID PRN cough #30 caps 06/23/24 07/01/24 Rx lorazepam 0.5 mg tablet 0.5 mg PO BID PRN 06/23/24 07/01/24 Rx anxiety/panic/insomnia #60 tabs paroxetine HCl 20 mg tablet 20 mg PO HS #30 tabs 06/23/24 07/01/24 Rx mirtazapine 7.5 mg tablet 7.5 mg PO DAILY PRN insomnia #30 06/25/24 07/01/24 Rx tabs sennosides 8.6 mg tablet (Senna 8.6 mg PO BID PRN constipation #60 06/25/24 07/01/24 Rx Laxative) tabs OxyContin 20 mg PO BID 06/30/24 07/01/24 History metformin 500 mg tablet,extended 1,000 mg PO BID 06/30/24 07/01/24 History release 24 hr Patient History Medical History Osteoarthritis History of kidney stones Malignant melanoma Surgical History History of colonoscopy History of prostate biopsy History of left inguinal hernia repair History of melanoma excision History of Mohs micrographic surgery for skin cancer History of wisdom tooth extraction History of carpal tunnel release of both wrists Status post correction of deviated nasal septum History of tonsillectomy and adenoidectomy Family History Brother Family history of diabetes mellitus Family hx colonic polyps Other No family history of adverse response to anesthesia Social History Smoking Status: Never smoker Tobacco Type: Cigarettes Age Started Using Tobacco: 16; Age Quit Using Tobacco: 46; packs per day: 1; Second Hand Exposure: No; Do You Dip or Chew Tobacco: No; Hx Alcohol Use: Yes Alcohol type: hard liquor Hx Substance Use: No Preferred Language: Ukrainian Communication Ability: Effective 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 All else were negative. Physical Exam Physical Exam: VITAL SIGNS Vital signs and nursing notes were reviewed. GENERAL 74-year-old male appearing his stated age who is in no acute distress. Communicates well with provider and answers questions appropriately. SKIN RIGHT sided Pleurx catheter in place without surrounding erythema or ed dain noted. No discharge or drainage noted. Suture well in place. NOSE Midline and without cyanosis. MOUTH/OROPHARYNX Without perioral cyanosis. NECK Neck with FROM. LUNGS Chest wall evaluation demonstrates normal chest wall A:P diameter. Auscultation reveals diminished breath sounds at the LEFT sided lung base. CARDIAC RRR with S1/S2. No murmur, rubs, or gallops appreciated. ABDOMEN Abdominal inspection demonstrates a flat abdomen. EXTREMITIES Nail clubbing not present. No peripheral cyanosis. No pretibial edema present. +3/5 radial palpated throughout. PSYCH A&Ox3 and cooperates fully with examiner. Pt is very pleasant and interacts well with examiner. Results & Data Results & Data Vital Signs (Past 12 Hours) Vital Signs Temp Pulse Pulse Resp BP BP Pulse Ox 07/01/24 14:30 85 20 106/73 94 07/01/24 14:12 87 15 95 07/01/24 14:10 99/66 L 07/01/24 14:00 101/66 07/01/24 14:00 101/66 07/01/24 13:57 86 20 94 07/01/24 13:51 87 19 95 07/01/24 13:51 90 18 104/66 95 07/01/24 13:50 104/66 07/01/24 13:50 104/66 07/01/24 13:42 88 15 93 07/01/24 13:36 84 12 96 07/01/24 13:30 107/68 07/01/24 13:27 88 13 94 07/01/24 13:20 94/64 L 07/01/24 13:18 85 22 94 07/01/24 13:17 85 18 104/66 95 07/01/24 13:15 86 20 95 07/01/24 13:13 92 H 07/01/24 12:57 91 H 14 93 07/01/24 12:51 91/62 L 07/01/24 12:45 90 13 93 07/01/24 12:40 91/61 L 07/01/24 12:36 90 18 93 07/01/24 12:30 96/45 L 07/01/24 12:28 88 L 07/01/24 12:27 92 H 20 95 07/01/24 12:20 87/56 L 07/01/24 12:18 90 23 92 07/01/24 12:14 84/63 L 07/01/24 12:10 68/57 L 07/01/24 12:03 92 H 23 93 07/01/24 12:00 79/61 L 07/01/24 11:56 93 07/01/24 11:50 36.5 C 92 H 18 83/63 L 94 O2 Del Method O2 Flow Rate 07/01/24 14:30 Nasal Cannula 2 07/01/24 14:12 2 07/01/24 14:10 07/01/24 14:00 07/01/24 14:00 07/01/24 13:57 2 07/01/24 13:51 2 07/01/24 13:51 Nasal Cannula 2 07/01/24 13:50 07/01/24 13:50 07/01/24 13:42 2 07/01/24 13:36 2 07/01/24 13:30 07/01/24 13:27 2 07/01/24 13:20 07/01/24 13:18 2 07/01/24 13:17 Nasal Cannula 2 07/01/24 13:15 2 07/01/24 13:13 07/01/24 12:57 2 07/01/24 12:51 07/01/24 12:45 2 07/01/24 12:40 07/01/24 12:36 2 07/01/24 12:30 07/01/24 12:28 Room Air 07/01/24 12:27 2 07/01/24 12:20 07/01/24 12:18 2 07/01/24 12:14 07/01/24 12:10 07/01/24 12:03 2 07/01/24 12:00 07/01/24 11:56 Room Air 07/01/24 11:50 Room Air PG Care Time/CCT Total # of Minutes Spent Total Time Spent with Patient: Total time spent is greater than 50% in coordination of care (as documented) at patient's floor/unit and/or counseling patient: Coding Level of Care Code 21902 INT INP/OBS CARE 2MIN Diagnoses Malignant pleural effusion J91.0 Extensive stage primary small cell carcinoma of lung C34.90 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
--- NOTE | 2024-07-01 16:41 | History & Physical Report ---
Date of Service July 01, 2024 Assessment & Plan (1) Cancer related pain: (2) Extensive stage primary small cell carcinoma of lung: (3) Acute hypotension: (4) Sleep apnea: Plan intractable pain - due to metastatic small cell cancer -was on 5mg oxycodone prn - no real help. just started 20mg oxycontin bid yesterday - some help. pain still uncontrolled, however -discussed multimodal pain control. will trial oxycontin 30mg bid, oxycodone 7.5mg qid prn breakthrough, 650mg tylenol scheduled TID, lidocaine patch. for now keep hydromorphone IV prn breakthrough and titrate meds up/down as needed -miralax daily hypotension -nothing appearing septic/infectious/cardiogenic -suspect multifactorial - pain/fentanyl dropping BP transiently, low volume due to thora also contributing --> stable w normal HR while i was talking to him for quite a while -watchful waiting, maintenance fluids, bolus should hypotension recur metastatic small cell cancer -discussed risk/benefit of induction chemo from primary care perspective and would feel he's a good candidate to trial -> would watch overnight to ensure no recurrence of hypotension and if not, then if oncology able to treat inpatient would be favored approach for now OLEGARIO - likely due to hypotension/hypovolemia - follow up w fluids hypercalcemia - malignancy related elevated LFTs - from metastases afib - rates controlled. eliquis currently on hold. can probably resume - but for now since just had procedure yesterday and has very little margin of error for volume loss, even though no clear bleeding noted will hold off on eliquis for now and use lovenox for prophylaxis History of Present Illness Chief Complaint: intractable pain Primary Care Provider: An Rowe MD severe pain has been going on for quite a while - maybe worse since pleurX but really has been bad before that too terrible last month -> thought he had pneumonia - didn't get better w abx -> CT scan - metastatic cancer. small cell. was actually to have induction chemo today - but pain terrible and couldn't tolerate the pain - given fentanyl -> drop in BP temporarily. sent to ER both for BP and pain control. pain heavily L side of chest although does seem to have some more diffuse pain. pain worse w cough/deep breath/movement. again preceded pleurX placement has supportive family takes eliquis for afib - has been holding last several days due to pleurX placement family notes that heme/onc thought as long as he was stable they may be able to start induction chemo while inpatient Allergies Allergy/AdvReac Type Severity Reaction Status Date / Time amoxicillin [From Augmentin] Allergy Intermediate stomach Verified 06/25/24 14:32 pain clavulanic acid Allergy Intermediate stomach Verified 06/25/24 14:32 [From Augmentin] pain levofloxacin [From Levaquin] Allergy Mild . Verified 06/30/24 11:36 lisinopril AdvReac Mild Cough Verified 06/30/24 11:36 Home Medications Medication Instructions Recorded Confirmed Type multivitamin 1 tab PO QAM 05/18/20 07/01/24 History valacyclovir 500 mg tablet 500 mg PO QAM #90 tabs 09/23/23 07/01/24 Rx fluticasone propionate 50 1 spray intranasal BID #16 grams 09/24/23 07/01/24 Rx mcg/actuation nasal spray,suspension omeprazole 40 mg capsule,delayed 40 mg PO DAILY #90 caps 09/30/23 07/01/24 Rx release tamsulosin 0.4 mg capsule 0.4 mg PO DAILY #90 caps 11/20/23 07/01/24 Rx tadalafil 20 mg tablet 20 mg PO DAILY #90 tabs 12/20/23 07/01/24 Rx olmesartan 5 mg tablet 5 mg PO DAILY #90 tabs 03/06/24 07/01/24 Rx rosuvastatin 10 mg tablet 10 mg PO DAILY #90 tabs 03/06/24 07/01/24 Rx cholecalciferol (vitamin D3) 25 25 mcg PO DAILY 04/30/24 07/01/24 History mcg (1,000 unit) capsule albuterol sulfate 90 mcg/actuation 2 puff inhalation Q6H PRN 05/23/24 07/01/24 Rx aerosol inhaler shortness of breath or wheezing #8.5 grams albuterol 90 mcg-budesonide 80 2 inh inhalation QID PRN shortness 05/26/24 07/01/24 Rx mcg/actuation HFA aerosol inhaler of breath #5.9 grams (Airsupra) azelastine 137 mcg (0.1 %) nasal 1 spray intranasal BID #30 mL 06/03/24 07/01/24 Rx spray apixaban 5 mg tablet (Eliquis) 5 mg PO BID #180 tabs 06/23/24 07/01/24 Rx benzonatate 200 mg capsule 200 mg PO TID PRN cough #30 caps 06/23/24 07/01/24 Rx lorazepam 0.5 mg tablet 0.5 mg PO BID PRN 06/23/24 07/01/24 Rx anxiety/panic/insomnia #60 tabs paroxetine HCl 20 mg tablet 20 mg PO HS #30 tabs 06/23/24 07/01/24 Rx mirtazapine 7.5 mg tablet 7.5 mg PO DAILY PRN insomnia #30 06/25/24 07/01/24 Rx tabs sennosides 8.6 mg tablet (Senna 8.6 mg PO BID PRN constipation #60 06/25/24 07/01/24 Rx Laxative) tabs OxyContin 20 mg PO BID 06/30/24 07/01/24 History metformin 500 mg tablet,extended 1,000 mg PO BID 06/30/24 07/01/24 History release 24 hr Past Med/Surg History Problem List Acute hypotension (Acute) Advanced care planning/counseling discussion 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 Malignant pleural effusion 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 Cancer related pain 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 Lung mass Obstructive sleep apnea Primary hypertension Benign localized prostatic hyperplasia with lower urinary tract symptoms (LUTS) Elevated PSA Hypertension GERD without esophagitis Bilateral nonpulsatile tinnitus Obesity (BMI 30.0-34.9) Prediabetes (Chronic) Mixed hyperlipidemia Nasal congestion Dyspnea on exertion Former smoker Myalgia Close exposure to 2019-nCoV Ingrown toenail of left foot with infection (Acute) Laryngopharyngeal reflux (Acute) Inhibited sexual excitement (Acute) Hypercholesterolemia (Acute) Genital herpes simplex (Acute) Elevated blood pressure reading without diagnosis of hypertension (Acute) Cervicalgia (Acute) Anxiety disorder (Acute) Acid reflux disease (Acute) Nephrolithiasis Encounter for prostate cancer screening Rib pain on right side Injury Sleep apnea (Acute) cpap Medical History Osteoarthritis History of kidney stones Malignant melanoma Surgical History History of colonoscopy History of prostate biopsy benign History of left inguinal hernia repair History of melanoma excision History of Mohs micrographic surgery for skin cancer on side of nose History of wisdom tooth extraction History of carpal tunnel release of both wrists Status post correction of deviated nasal septum History of tonsillectomy and adenoidectomy Family History Brother Family history of diabetes mellitus Family hx colonic polyps Other No family history of adverse response to anesthesia Social History Smoking Status: Never smoker Tobacco Type: Cigarettes Age Started Using Tobacco: 16; Age Quit Using Tobacco: 46; packs per day: 1; Second Hand Exposure: No; Do You Dip or Chew Tobacco: No; Hx Alcohol Use: Yes Alcohol type: hard liquor Hx Substance Use: No Preferred Language: Armenian Communication Ability: Effective Investigative Shopper Required: No Beliefs That Will Affect Care: None marital status: Current Living Situation: Spouse current occupational status: retired Feels Safe at Home: Yes Dental Care, Regularly: Yes Seatbelt Use: always Sunscreen Use: Yes Assistive Devices: None Review of Systems Review of Systems: All systems reviewed & are unremarkable except as noted in HPI & below Physical Exam Physical Exam: gen aaox3 pleasant but intermittently in distress from uncontrolled pain. heent nc at mmm breathing unlabored no accessory muscles good effort skin no rashes no pallor or icterus neuro cn 2-12 grossly intact gross motor/sensory intact mental status appropriately anxious but good recent and remote recall normal mood and affect good judgement and insight. Results & Data Results & Data Vital Signs (Past 12 Hours) Vital Signs Temp Pulse Pulse Resp BP BP Pulse Ox 07/01/24 14:30 85 20 106/73 94 07/01/24 14:12 87 15 95 07/01/24 14:10 99/66 L 07/01/24 14:00 101/66 07/01/24 14:00 101/07/01/24 13:57 86 20 94 07/01/24 13:51 87 19 95 07/01/24 13:51 90 18 104/66 95 07/01/24 13:50 104/66 07/01/24 13:50 104/66 07/01/24 13:42 88 15 93 07/01/24 13:36 84 12 96 07/01/24 13:30 107/68 07/01/24 13:27 88 13 94 07/01/24 13:20 94/64 L 07/01/24 13:18 85 22 94 07/01/24 13:17 85 18 104/66 95 07/01/24 13:15 86 20 95 07/01/24 13:13 92 H 07/01/24 12:57 91 H 14 93 07/01/24 12:51 91/62 L 07/01/24 12:45 90 13 93 07/01/24 12:40 91/61 L 07/01/24 12:36 90 18 93 07/01/24 12:30 96/45 L 07/01/24 12:28 88 L 07/01/24 12:27 92 H 20 95 07/01/24 12:20 87/56 L 07/01/24 12:18 90 23 92 07/01/24 12:14 84/63 L 07/01/24 12:10 68/57 L 07/01/24 12:03 92 H 23 93 07/01/24 12:00 79/61 L 07/01/24 11:56 93 07/01/24 11:50 97.7 F 92 H 18 83/63 L 94 O2 Del Method O2 Flow Rate 07/01/24 14:30 Nasal Cannula 2 07/01/24 14:12 2 07/01/24 14:10 07/01/24 14:00 07/01/24 14:00 07/01/24 13:57 2 07/01/24 13:51 2 07/01/24 13:51 Nasal Cannula 2 07/01/24 13:50 07/01/24 13:50 07/01/24 13:42 2 07/01/24 13:36 2 07/01/24 13:30 07/01/24 13:27 2 07/01/24 13:20 07/01/24 13:18 2 07/01/24 13:17 Nasal Cannula 2 07/01/24 13:15 2 07/01/24 13:13 07/01/24 12:57 2 07/01/24 12:51 07/01/24 12:45 2 07/01/24 12:40 07/01/24 12:36 2 07/01/24 12:30 07/01/24 12:28 Room Air 07/01/24 12:27 2 07/01/24 12:20 07/01/24 12:18 2 07/01/24 12:14 07/01/24 12:10 07/01/24 12:03 2 07/01/24 12:00 07/01/24 11:56 Room Air 07/01/24 11:50 Room Air Code Status & VTE Plan VTE Prophylaxis Plan VTE Prophylaxis will be ordered: Yes PG Care Time/CCT Total # of Minutes Spent Total Time Spent with Patient: Total time spent is greater than 50% in coordination of care (as documented) at patient's floor/unit and/or counseling patient: Coding Level of Care Code 08519 INT INP/OBS CARE 3/75MIN Diagnoses Cancer related pain G89.3 Extensive stage primary small cell carcinoma of lung C34.90 Acute hypotension I95.9 Sleep apnea G47.30
[2024-07-01 17:17] LABS: Appearance Urine Cloudy (Clear); Bacteria Urine Automated None Seen (None Seen); Bilirubin Urine 1+ (Negative); Blood Urine Negative (Negative); Cast Urine Automated >20 /lpf (0-2); Color Urine Dark Yellow; Glucose Urine UA Negative (Negative); Granular Casts Urine Present /lpf (None Prsent); Hyaline Casts Urine Present /lpf (None Presnt); Ketones Urine Trace (Negative); Leukocyte Esterase Urine Trace (Negative); Mucus Urine Present (None Prsent); Nitrite Urine Negative (Negative); Protein Urine 1+ (Negative); RBC Urine Automated 0-2 /hpf (0-2); Specific Gravity Urine 1.038 (1.000-1.030); Urobilinogen Urine Negative (Negative); WBC Urine Automated 0-5 /hpf (0-5)
[2024-07-01] MEDS ORDERED: MAGNESIUM HYDROXIDE SUSP 30 ML UDC PO PRN (18:08)
[2024-07-01] MEDS ORDERED: oxyCODONE HCL IR 5 MG TAB (IMMEDIATE RELEASE) PO PRN (18:08)
[2024-07-01] MEDS ORDERED: ONDANSETRON INJ 2 MG/ML 2 ML VIAL IV PRN (18:08)
[2024-07-01] MEDS ORDERED: ALUMINUM/MAGNESIUM SUSP 30 ML UDC PO PRN (18:08)
[2024-07-01] MEDS ORDERED: NON-FORMULARY MEDICATION (Albuterol-Budesonide [Airsupra] 90-80 mcg/actuation HFA aerosol INH PRN (18:08)
[2024-07-01] MEDS: LACTATED RINGER'S 1,000 ML IV SCH (18:42)
[2024-07-01] MEDS: HYDROmorphone INJ 0.5 MG/0.5 ML SYR IV STA (18:46)
[2024-07-01] MEDS: oxyCODONE HCL 15 MG TABCR (OxyCONTIN) PO SCH (18:46)
[2024-07-01] MEDS: LIDOCAINE 5% 1 PATCH TD STA (18:46)
[2024-07-01] MEDS: HYDROmorphone INJ 0.5 MG/0.5 ML SYR IV PRN (21:02)
[2024-07-01] MEDS: ACETAMINOPHEN 325 MG TAB PO SCH (21:04)
[2024-07-01] MEDS: PARoxetine HCL 20 MG TAB PO SCH (21:04)
[2024-07-01] MEDS: metFORMIN HCL ER 500 MG TABCR PO SCH (21:04)
[2024-07-01] MEDS: LORazepam 0.5 MG TAB PO PRN (21:04)
[2024-07-01] MEDS: FLUTICASONE PROPIONATE NA SPR 16 GM BTL NAE SCH (21:05)
[2024-07-01] MEDS: AZELASTINE HCL 0.1% NASAL 200 SPRAYS/27,400 MCG BTL NAE SCH (21:05)
[2024-07-01] MEDS: BENZONATATE 100 MG CAPSULE PO PRN (21:28)
[2024-07-01] MEDS ORDERED: VANCOMYCIN CONSULT ACTIVE PRN (21:34)
[2024-07-01] MEDS: VANCOMYCIN HCL 1,750 MG in SODIUM CHLORIDE 0.9% 500 ML IV ONE (22:02)
[2024-07-01] MEDS: LIDOCAINE 5% 1 PATCH TD SCH (22:03)
[2024-07-02] MEDS: MIRTAZAPINE TAB 15 MG TAB PO PRN (00:35)
[2024-07-02] MEDS: CEFEPIME 2000MG 2,000 MG/20 ML SYR IV SCH (01:18)
--- NOTE | 2024-07-02 06:28 | Electrocardiogram Report ---
Test Reason : Blood Pressure : */* mmHG Vent. Rate : 97 BPM Atrial Rate : 97 BPM P-R Int : 150 ms QRS Dur : 72 ms QT Int : 368 ms P-R-T Axes : 56 45 49 degrees QTcB Int : 468 ms Sinus rhythm with frequent Premature ventricular complexes Low voltage QRS Nonspecific T wave abnormality Abnormal ECG When compared with ECG of 08-Jun-2024 17:56, Premature ventricular complexes are now Present Nonspecific T wave abnormality now evident in Inferior leads Nonspecific T wave abnormality now evident in Anterior leads Confirmed by Beto Whitfield ([id number]) on 07/02/2024 6:28:24 AM Referred By: Conner Garcia Confirmed By: Beto Whitfield
--- NOTE | 2024-07-02 08:23 | XRay Report ---
EXAM: XR chest 1V portable CLINICAL HISTORY: f/u TECHNIQUE: An X-ray image of the chest is obtained in AP projection. COMPARISON: 06/30/2024. FINDINGS: Pulmonary Parenchyma: Homogeneous opacification of the left mid and lower zone obscuring the left costophrenic recess. Bilateral prominent hilar bronchovascular/interstitial markings. Hairline thickening of the minor fissure. Heart and Mediastinum: Cardiomegaly with bilateral hilar congestion. No mediastinal widening or masses. No hilar or mediastinal lymphadenopathy. Bony Thorax: Bony thorax appears intact without fractures or deformities. Soft Tissues: Soft tissues overlying the chest wall are unremarkable. Left chest dense line reaching left upper hilar region, can be external tube/ chest tube, clinical correlation recommended. IMPRESSION: 1. Homogeneous opacification of left mid and lower zones obscuring the left costophrenic recess. Moderate left pleural effusion. 2. Cardiomegaly with bilateral hilar congestion. 3. Comparing the previous x-ray dated 06/30/2024, minimal increase in left lung aeration and mild increase central hilar congestion. Electronically signed by Chris Chanel 07-02-2024 08:23 AM
[2024-07-02 08:50] LABS: C Reactive Protein 6.66 mg/dl (0-0.5)
[2024-07-02] MEDS ORDERED: LIDOCAINE 5% 1 PATCH TD SCH (09:00)
--- NOTE | 2024-07-02 09:18 | Pulmonology Progress Note ---
Date of Service July 02, 2024 Assessment & Plan (1) Malignant pleural effusion: Plan: In the setting of extensive stage primary small cell lung cancer. PleurX catheter placed yesterday. There appears to be an area of trapped lung. 2500 mL of serosanguineous fluid was drained off initially. An additional 750 mL was drained yesterday prior to the patient having discomfort. Remained to waterseal overnight without significant output. Chest x-ray reviewed without pneumothorax. Persistent layering effusion appreciated. Will plan on disconnecting from chest tube set up today and just leave the Pleurx catheter in place with intermittent drainage as needed. (2) Extensive stage primary small cell carcinoma of lung: Plan: Scheduled to start induction chemotherapy today, however he was found to be hypotensive. Defer plans for chemotherapy to hematology/oncology moving forward. 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 Likely resulting in his pain. (4) Advanced care planning/counseling discussion: Plan: Had an extensive conversation with the patient and family present reviewing his extensive metastatic small cell lung cancer burden and concerning symptoms. Patient has had significant output from his chest tube. Theoretically, this should improve with the induction of chemotherapy, but at this point the patient has had difficulty receiving that secondary to pain associated with occult fracture as well as hypotension. While we address these topics, the patient becomes tearful and states that he has had significant discomfort and is uncertain if this is something he wishes to proceed with. We did broach the subject of care planning moving forward including full code versus limited CODE STATUS, versus more of a comfort based approach and palliative moving forward. At this point, he is fine with current treatment. He does not want chest compressions. He does not want shocks. He is on the fence about vasopressors, but specifically reports he would not want them for any extended period of time. He is uncertain about cardiac dysrhythmia medications. Additionally, he is uncertain that he would wish to undergo endotracheal intubation. He is going to discuss this with his family and provide us with a more extensive list, however he does reiterate that he certainly does not want to be uncomfortable and if her symptoms were to decline, he would be more likely to go towards a comfort based approach focusing on quality of life rather than quantity at this juncture. Admission and Anticipated Discharge Date Admission Date: July 01, 2024 Supervising Physician Co-Signing Physician Notes Patient separately seen and examined today from [facility]. Agree with the above note aside for any additions/exceptions: Pleurx catheter site looks clean dry and intact. Currently connected to Betzy. Will disconnect from drain and drain intermittently. Patient with extensive stage small cell lung cancer. Oncology note reviewed. Patient received first dose of chemotherapy today and patient. He continues to feel short of breath. His pain is currently better controlled. He has Rales noted in the left upper lobe and left lower lobe. He remains on low-flow oxygen. Continue empiric cefepime for possible postobstructive pneumonia. MRSA screen negative. Will continue to follow patient. Thank you. Subjective Patient seen and evaluated at bedside. He reports less pain. He did have some confusion last night, however. His chest tube remained to waterseal. No complaints of pleuritic pain or worsening cough. Review of Systems Review of Systems: A complete 10 point review of systems was reviewed with the patient with pertinent positives and negatives as per history of present illness. All else were negative. Physical Exam Physical Exam: VITAL SIGNS Vital signs and nursing notes were reviewed. GENERAL 74-year-old male appearing his stated age who is in no acute distress. Communicates well with provider and answers questions appropriately. SKIN RIGHT sided Pleurx catheter in place without surrounding erythema or edema noted. No discharge or drainage noted. Suture well in place. NOSE Midline and without cyanosis. MOUTH/OROPHARYNX Without perioral cyanosis. NECK Neck with FROM. LUNGS Chest wall evaluation demonstrates normal chest wall A:P diameter. Auscultation reveals diminished breath sounds at the LEFT sided lung base. CARDIAC RRR with S1/S2. No murmur, rubs, or gallops appreciated. ABDOMEN Abdominal inspection demonstrates a flat abdomen. EXTREMITIES Nail clubbing not present. No peripheral cyanosis. No pretibial edema present. +3/5 radial palpated throughout. PSYCH A&Ox3 and cooperates fully with examiner. Pt is very pleasant and interacts well with examiner. Results & Data Results & Data Vital Signs (Past 12 Hours) Vital Signs Temp Pulse Pulse Resp BP Pulse Ox O2 Del Method 07/02/24 07:39 37.1 C 114 H 20 129/77 95 Nasal Cannula 07/02/24 03:07 36.6 C 102 H 18 122/82 97 Nasal Cannula 07/01/24 23:06 36.4 C L 96 H 18 129/73 96 Nasal Cannula 07/01/24 22:47 98 H O2 Flow Rate 07/02/24 07:39 2 07/02/24 03:07 5 07/01/24 23:06 3 07/01/24 22:47 PG Care Time/CCT Total # of Minutes Spent Total Time Spent with Patient: Total time spent is greater than 50% in coordination of care (as documented) at patient's floor/unit and/or counseling patient: Coding Level of Care Code 52760 SUB INP/OBS CARE 2/35MIN Diagnoses Malignant pleural effusion J91.0 Extensive stage primary small cell carcinoma of lung C34.90 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
[2024-07-02] MEDS: LOSARTAN POTASSIUM 25 MG TAB PO SCH (09:25)
[2024-07-02] MEDS: valACYclovir HCL 500 MG TABLET PO SCH (09:25)
[2024-07-02] MEDS: TAMSULOSIN HCL 0.4 MG CAP PO SCH (09:25)
[2024-07-02] MEDS: PANTOprazole 40 MG TAB PO SCH (09:26)
[2024-07-02] MEDS: MULTIVITAMIN TAB PO SCH (09:26)
[2024-07-02] MEDS: ROSUVASTATIN CALCIUM 10 MG TAB PO SCH (09:26)
[2024-07-02] MEDS: CHOLECALCIFEROL 25 MCG (1000 UNITS) TAB PO SCH (09:26)
[2024-07-02] MEDS: POLYETHYLENE (MIRALAX) 17 GM PACK PO SCH (09:27)
[2024-07-02 09:54] LABS: Calcium 10.7 mg/dl (8.6-10.3); Creatinine Clr Calc Pharmacy 50.1 ml/min; Potassium 4.5 mmol/L (3.5-5.1)
[2024-07-02] MEDS ORDERED: VANCOMYCIN HCL 1,250 MG in SODIUM CHLORIDE 0.9% 250 ML IV SCH (10:00)
[2024-07-02 10:01] LABS: Hematocrit (blood only) 42.9 % (42.0-52.0); Hemoglobin 14.1 g/dl (14.0-18.0); Mean Corpuscular Hemoglobin 32.3 pg (25.0-34.0); Mean Corpuscular Hgb Conc 32.9 g/dL (32.0-36.0); Mean Corpuscular Volume 98.2 fL (80.0-100.0); Mean Platelet Volume 11.3 fL (9.4-12.4); Platelet Count 168 K/uL (130-400); RDW Standard Deviation 46.4 fL (36.4-46.3); Red Blood Count 4.37 M/uL (4.70-6.10)
[2024-07-02 10:32] LABS: Basophils # (auto) 0.03 K/uL (0.00-0.20); Basophils % (auto) 0.3 %; Immature Granulocytes # (auto) 0.16 K/uL (0.01-0.20); Immature Granulocytes % (auto) 1.6 %; Lymphocytes # (auto) 0.22 K/uL (1.20-3.40); Lymphocytes % (auto) 2.2 %; Monocytes # (auto) 0.26 K/uL (0.11-0.59); Monocytes % (auto) 2.6 %; Neutrophils # (auto) 9.33 K/uL (1.40-6.50); Neutrophils % (auto) 92.3 %
[2024-07-02] MEDS: FOSAPREPITANT DIMEGLUMINE 150 MG in SODIUM CHLORIDE 0.9% 145 ML IV SCH (12:32)
[2024-07-02] MEDS: PALONOSETRON 0.25 MG, dexAMETHasone 12 MG in DEXTROSE 5% 50 ML IV SCH (12:59)
[2024-07-02] MEDS ORDERED: oxyCODONE HCL IR 5 MG TAB (IMMEDIATE RELEASE) PO PRN (13:03)
[2024-07-02] MEDS ORDERED: HYDROmorphone INJ 0.5 MG/0.5 ML SYR IV PRN (13:03)
--- NOTE | 2024-07-02 13:07 | Hospitalist Progress Note ---
Date of Service July 02, 2024 Assessment & Plan (1) Cancer related pain: (2) Extensive stage primary small cell carcinoma of lung: (3) Acute hypotension: (4) Sleep apnea: Plan intractable pain - due to metastatic small cell cancer -gently titrate pain control as tolerated/as possible delirium /metabolic encephalopathy -no brain mets on recent MRI; preceding mild visual hallucinations suggest this was ongoing prior to admission -exacerbating factors appearing to be pain, stress, hospital environment, pain medications -pain vs pain meds will be a delicate balance since uncontrolled pain can often be as delirogenic as the medications themselves - will reduce dosing of pain m eds (although he had only had 0.5mg dilauded and 0.5mg PO ativan(home med) last night 9p) -updated S.O. at bedside hypotension -nothing appearing septic/infectious/cardiogenic to my review. pulmonary does have on empiric abx but clinically doubt infection/pneumonia -suspect multifactorial - pain/fentanyl dropping BP transiently, low volume due to thora also contributing --> stable w normal HR while i was talking to him for quite a while -watchful waiting, maintenance fluids, bolus should hypotension recur - BP has been stable metastatic small cell cancer -discussed risk/benefit of induction chemo from primary care perspective and would feel he's a good candidate to trial -> oncology starting today OLEGARIO - likely due to hypotension/hypovolemia - improved w fluids hypercalcemia - malignancy related elevated LFTs - from metastases afib - rates controlled. eliquis currently on hold. can probably resume - but for now since just had procedure yesterday and has very little margin of error for volume loss, even though no clear bleeding noted will hold off on eliquis for now and use lovenox for prophylaxis Admission and Anticipated Discharge Date Admission Date: July 01, 2024 Subjective more confused through the night and earlier today. S.O. notes that he was actually having some degree of visual hallucinations off and on at home the last several weeks as well. he notes ongoing L sided CP same as hwat's been going on since before admission. no new complaints otherwise. digital media sales consultant input appreciated. Review of Systems Review of Systems: All systems reviewed & are unremarkable except as noted in HPI & below Physical Exam Physical Exam: gen - awake but seems easily confused and falls asleep some - but nad. S.O. notes that he's doing better than earlier when she first got here. heent nc at mmm breathing unlabored no accessory muscles good effort skin no rashes no pallor or icterus neuro no focal deficits, labs and CXR noted Results & Data Results & Data Vital Signs (Past 12 Hours) Vital Signs Temp Pulse Resp BP Pulse Ox O2 Del Method O2 Flow Rate 07/02/24 12:38 98.4 F 110 H 18 98/59 L 94 Room Air 2 07/02/24 11:33 97.5 F L 98 H 18 108/66 95 Nasal Cannula 2 07/02/24 10:47 Nasal Cannula 2 07/02/24 07:39 98.8 F 114 H 20 129/77 95 Nasal Cannula 2 07/02/24 03:07 97.9 F 102 H 18 122/82 97 Nasal Cannula 5 PG Care Time/CCT Total # of Minutes Spent Total Time Spent with Patient: Total time spent is greater than 50% in coordination of care (as documented) at patient's floor/unit and/or counseling patient: Coding Level of Care Code 14576 SUB INP/OBS CARE 3/50MIN Diagnoses Cancer related pain G89.3 Extensive stage primary small cell carcinoma of lung C34.90 Acute hypotension I95.9 Sleep apnea G47.30
[2024-07-02] MEDS: ETOPOSIDE 200 MG in SODIUM CHLORIDE 0.9% 500 ML IV SCH (15:08)
--- NOTE | 2024-07-02 16:14 | Oncology Consultation ---
Date of Consultation July 02, 2024 Assessment & Plan (1) Extensive stage primary small cell carcinoma of lung: proceed with cycle 1 day 1 of carboplatin etoposide. We will proceed with the chemotherapy inpatient. Explained the long-term prognosis as well as implication of the diagnosis and the reason to do chemotherapy on an emergent basis in this patient with extensive stage small cell lung cancer Plan . Thank you for this interesting oncological consult. History of Present Illness Reason for Consultation: Small Cell Lung Cancer Severe cancer related pain Attending Physician: Gordon Wen, History of Present Illness The patient is a very pleasant 73-year-old man with extensive stage small cell lung cancer, currently admitted with severe intractable cancer related pain, hypertension, shortness of breath. The patient was due to start his palliative systemic chemotherapy outpatient however was admitted because of severe cancer related pain. Currently the patient is doing better. Allergies Allergy/AdvReac Type Severity Reaction Status Date / Time amoxicillin [From Augmentin] Allergy Intermediate stomach Verified 06/25/24 14:32 pain clavulanic acid Allergy Intermediate stomach Verified 06/25/24 14:32 [From Augmentin] pain levofloxacin [From Levaquin] Allergy Mild . Verified 06/30/24 11:36 lisinopril AdvReac Mild Cough Verified 06/30/24 11:36 Home Medications Medication Instructions Recorded Confirmed Type multivitamin 1 tab PO QAM 05/18/20 07/01/24 History valacyclovir 500 mg tablet 500 mg PO QAM #90 tabs 09/23/23 07/01/24 Rx fluticasone propionate 50 1 spray intranasal BID #16 grams 09/24/23 07/01/24 Rx mcg/actuation nasal spray,suspension omeprazole 40 mg capsule,delayed 40 mg PO DAILY #90 caps 09/30/23 07/01/24 Rx release tamsulosin 0.4 mg capsule 0.4 mg PO DAILY #90 caps 11/20/23 07/01/24 Rx tadalafil 20 mg tablet 20 mg PO DAILY #90 tabs 12/20/23 07/01/24 Rx olmesartan 5 mg tablet 5 mg PO DAILY #90 tabs 03/06/24 07/01/24 Rx rosuvastatin 10 mg tablet 10 mg PO DAILY #90 tabs 03/06/24 07/01/24 Rx cholecalciferol (vitamin D3) 25 25 mcg PO DAILY 04/30/24 07/01/24 History mcg (1,000 unit) capsule albuterol sulfate 90 mcg/actuation 2 puff inhalation Q6H PRN 05/23/24 07/01/24 Rx aerosol inhaler shortness of breath or wheezing #8.5 grams albuterol 90 mcg-budesonide 80 2 inh inhalation QID PRN shortness 05/26/24 07/01/24 Rx mcg/actuation HFA aerosol inhaler of breath #5.9 grams (Airsupra) azelastine 137 mcg (0.1 %) nasal 1 spray intranasal BID #30 mL 06/03/24 07/01/24 Rx spray apixaban 5 mg tablet (Eliquis) 5 mg PO BID #180 tabs 06/23/24 07/01/24 Rx benzonatate 200 mg capsule 200 mg PO TID PRN cough #30 caps 06/23/24 07/01/24 Rx lorazepam 0.5 mg tablet 0.5 mg PO BID PRN 06/23/24 07/01/24 Rx anxiety/panic/insomnia #60 tabs paroxetine HCl 20 mg tablet 20 mg PO HS #30 tabs 06/23/24 07/01/24 Rx mirtazapine 7.5 mg tablet 7.5 mg PO DAILY PRN insomnia #30 06/25/24 07/01/24 Rx tabs sennosides 8.6 mg tablet (Senna 8.6 mg PO BID PRN constipation #60 06/25/24 07/01/24 Rx Laxative) tabs OxyContin 20 mg PO BID 06/30/24 07/01/24 History metformin 500 mg tablet,extended 1,000 mg PO BID 06/30/24 07/01/24 History release 24 hr Patient History Medical History Osteoarthritis History of kidney stones Malignant melanoma Surgical History History of colonoscopy History of prostate biopsy benign History of left inguinal hernia repair History of melanoma excision History of Mohs micrographic surgery for skin cancer on side of nose History of wisdom tooth extraction History of carpal tunnel release of both wrists Status post correction of deviated nasal septum History of tonsillectomy and adenoidectomy Family History Brother Family history of diabetes mellitus Family hx colonic polyps Other No family history of adverse response to anesthesia Social History Smoking Status: Former smoker Tobacco Type: Cigarettes Age Started Using Tobacco: 16; Age Quit Using Tobacco: 46; packs per day: 1; Second Hand Exposure: No; Do You Dip or Chew Tobacco: No; Hx Alcohol Use: Yes Alcohol type: hard liquor Hx Substance Use: No Preferred Language: Ukrainian Communication Ability: Effective Manager Animal Required: No Beliefs That Will Affect Care: None marital status: Current Living Situation: Spouse Current Living Situation Comment: Amada Don current occupational status: retired Feels Safe at Home: Yes Dental Care, Regularly: Yes Seatbelt Use: always Sunscreen Use: Yes Assistive Devices: None Review of Systems Review of Systems: Other Constitutional: as per Subjective / HPI Eyes: as per Subjective / HPI Ear, Nose, Mouth, Throat: as per Subjective / HPI Respiratory: as per Subjective / HPI Cardiovascular: as per Subjective / HPI Gastrointestinal: as per Subjective / HPI Genitourinary: + as per Subjective / HPI Musculoskeletal: as per Subjective / HPI Integumentary: as per Subjective / HPI Neurologic: as per Subjective / HPI Psychiatric: as per Subjective / HPI Endocrine: as per Subjective / HPI Hematologic / Lymphatic: as per Subjective / HPI Allergy / Immunological: as per Subjective / HPI Physical Exam Constitutional: WD/WN, vitals as above Eyes: PERRL, conjunctivae normal, anicteric sclerae ENMT: external ear and nose normal, oropharynx normal Neck: trachea midline, no thyromegaly Respiratory: normal respiratory effort, lungs clear to auscultation Cardiovascular: RRR, no murmur, no edema Gastrointestinal (Abdomen): normal bowel sounds, soft, nontender, no hepatosplenomegaly Musculoskeletal: no cyanosis or clubbing, extremities motor strength 5/5 Skin: no rashes, warm and dry Neurologic: patellar DTR's 2+ bilat, sensation intact Psychiatric: A+Ox3, euthymic affect Results & Data Vital Signs (Past 12 Hours) Vital Signs Temp Pulse Pulse Resp BP Pulse Ox Pulse Ox 07/02/24 12:38 36.9 C 110 H 18 98/59 L 94 07/02/24 11:54 104 H 07/02/24 11:54 94 07/02/24 11:33 36.4 C L 98 H 18 108/66 95 07/02/24 10:47 07/02/24 07:39 37.1 C 114 H 20 129/77 95 O2 Del Method O2 Del Method O2 Flow Rate O2 Flow Rate 07/02/24 12:38 Room Air 2 07/02/24 11:54 07/02/24 11:54 Room Air 2 07/02/24 11:33 Nasal Cannula 2 07/02/24 10:47 Nasal Cannula 2 07/02/24 07:39 Nasal Cannula 2
[2024-07-02] MEDS: SENNA 8.6 MG TAB PO PRN (16:49)
[2024-07-02] MEDS: oxyCODONE HCL 20 MG TABCR (OxyCONTIN) PO SCH (21:00)
[2024-07-03] MEDS: LACTATED RINGER'S 500 ML IV ONE ×2 (04:33→05:36)
--- NOTE | 2024-07-03 05:10 | Communication Note ---
Date of Service: July 03, 2024 S/O: Patient noted to be in AFib w/ RVR w/ rates as high as 180 but mostly in 140- 150s, starting at 3:30 am on 07/03/24. Also with low BP w/ MAP of 76 at same time. Noted to be rate-controlled on admission but no outpatient rate (or rhythm) control meds. Unclear if he was recently cardioverted but can't find evidence of [place] [facility]. Only outpt BP medication is 5 mg olmesartan daily. On 12.5 mg losartan in hospital. A/P: Gave patient a 1000 mL bolus of LR. Re-evaluated BP after bolus, 124/79. Gave Lopressor, 5 mg, IV. Repeat BP 104/69. Also held losartan. Started metoprolol tartrate, 25 mg, PO, BID. Resident Activity Tracking Resident Involvement: Resident Care Provided Care Provided: Adult Hospital Medicine
[2024-07-03] MEDS: METOPROLOL TARTRATE 1 MG/ML VIAL IV STA (05:21)
[2024-07-03 07:02] LABS: Hematocrit (blood only) 43.1 % (42.0-52.0); Hemoglobin 14.4 g/dl (14.0-18.0); Mean Corpuscular Hemoglobin 32.9 pg (25.0-34.0); Mean Corpuscular Hgb Conc 33.4 g/dL (32.0-36.0); Mean Corpuscular Volume 98.4 fL (80.0-100.0); Mean Platelet Volume 11.1 fL (9.4-12.4); Platelet Count 142 K/uL (130-400); RDW Coefficient of Variation 12.6 % (11.5-14.5); RDW Standard Deviation 45.6 fL (36.4-46.3); Red Blood Count 4.38 M/uL (4.70-6.10); White Blood Count 10.49 K/ul (4.8-10.8)
[2024-07-03 07:23] LABS: BUN Creatinine Ratio 42.1 (10-20); Calcium 10.3 mg/dl (8.6-10.3); Creatinine Clr Calc Pharmacy 61.4 ml/min; Potassium 5.2 mmol/L (3.5-5.1)
[2024-07-03 08:01] LABS: Basophils # (auto) 0.01 K/uL (0.00-0.20); Basophils % (auto) 0.1 %; Eosinophils # (auto) 0.02 K/uL (0.00-0.50); Eosinophils % (auto) 0.2 %; Immature Granulocytes # (auto) 0.12 K/uL (0.01-0.20); Immature Granulocytes % (auto) 1.1 %; Lymphocytes # (auto) 0.33 K/uL (1.20-3.40); Lymphocytes % (auto) 3.1 %; Monocytes # (auto) 0.38 K/uL (0.11-0.59); Monocytes % (auto) 3.6 %; Neutrophils # (auto) 9.63 K/uL (1.40-6.50); Neutrophils % (auto) 91.9 %; RBC Morphology Unremarkable
[2024-07-03] MEDS: METOPROLOL TARTRATE 25 MG TAB PO SCH (08:25)
--- NOTE | 2024-07-03 09:59 | Pulmonology Progress Note ---
Date of Service July 03, 2024 Assessment & Plan (1) Malignant pleural effusion: Plan: In the setting of extensive stage primary small cell lung cancer. Pleurx catheter in place. Will start with intermittent draining of the catheter starting tomorrow (07/04/2024). This can be coordinated in the outpatient as previously arranged. (2) Extensive stage primary small cell carcinoma of lung: Plan: Continue with treatment per oncology. 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 Likely resulting in his pain. Well controlled at this time. (4) Advanced care planning/counseling discussion: Plan: Had an extensive conversation with the patient and family present reviewing his extensive metastatic small cell lung cancer burden and concerning symptoms. Milly campos has had significant output from his chest tube. Theoretically, this should improve with the induction of chemotherapy, but at this point the patient has had difficulty receiving that secondary to pain associated with occult fracture as well as hypotension. While we address these topics, the patient becomes tearful and states that he has had significant discomfort and is uncertain if this is something he wishes to proceed with. We did broach the subject of care planning moving forward including full code versus limited CODE STATUS, versus more of a comfort based approach and palliative moving forward. At this point, he is fine with current treatment. He does not want chest compressions. He does not want shocks. He is on the fence about vasopressors, but specifically reports he would not want them for any extended period of time. He is uncertain about cardiac dysrhythmia medications. Additionally, he is uncertain that he would wish to undergo endotracheal intubation. He is going to discuss this with his family and provide us with a more extensive list, however he does reiterate that he certainly does not want to be uncomfortable and if her symptoms were to decline, he would be more likely to go towards a comfort based approach focusing on quality of life rather than quantity at this juncture. Plan Thank you for allowing us participate in the care of this pleasant patient. Pulmonary medicine will sign off at this time. Admission and Anticipated Discharge Date Admission Date: July 01, 2024 Subjective Patient seen and evaluated at bedside. He tolerated his first round of chemotherapy well. He did not do well with CPAP last night. He is having no pain at this time. Review of Systems Review of Systems: A complete 10 point review of systems was reviewed with the patient with pertinent positives and negatives as per history of present illness. All else were negative. Physical Exam Physical Exam: VITAL SIGNS Vital signs and nursing notes were reviewed. GENERAL 74-year-old male appearing his stated age who is in no acute distress. Communicates well with provider and answers questions appropriately. SKIN RIGHT sided Pleurx catheter in place without surrounding erythema or flavia ma noted. No discharge or drainage noted. Suture well in place. NOSE Midline and without cyanosis. MOUTH/OROPHARYNX Without perioral cyanosis. NECK Neck with FROM. LUNGS Chest wall evaluation demonstrates normal chest wall A:P diameter. Auscultation reveals diminished breath sounds at the LEFT sided lung base. CARDIAC RRR with S1/S2. No murmur, rubs, or gallops appreciated. ABDOMEN Abdominal inspection demonstrates a flat abdomen. EXTREMITIES Nail clubbing not present. No peripheral cyanosis. No pretibial edema present. +3/5 radial palpated throughout. PSYCH A&Ox3 and cooperates fully with examiner. Pt is very pleasant and interacts well with examiner. Results & Data Results & Data Vital Signs (Past 12 Hours) Vital Signs Temp Pulse Pulse Resp BP BP Pulse Ox 07/03/24 07:18 36.3 C L 130 H 14 106/62 95 07/03/24 05:37 116 H 12 104/69 90 07/03/24 05:36 116 H 104/69 07/03/24 05:21 157 H 124/79 07/03/24 05:21 124/79 07/03/24 04:48 99/65 L 07/03/24 04:44 110/75 07/03/24 04:23 131 H 8 L 102/67 94 07/03/24 04:15 12 96 07/03/24 02:30 36.4 C L 85 18 115/72 96 07/03/24 01:50 89 07/02/24 22:54 36.5 C 83 18 124/74 96 O2 Del Method O2 Flow Rate 07/03/24 07:18 Nasal Cannula 2.0 07/03/24 05:37 Nasal Cannula 2 07/03/24 05:36 07/03/24 05:21 07/03/24 05:21 07/03/24 04:48 07/03/24 04:44 07/03/24 04:23 Nasal Cannula 2 07/03/24 04:15 2 07/03/24 02:30 Nasal Cannula 2 07/03/24 01:50 07/02/24 22:54 Nasal Cannula 2 PG Care Time/CCT Total # of Minutes Spent Total Time Spent with Patient: Total time spent is greater than 50% in coordination of care (as documented) at patient's floor/unit and/or counseling patient: Coding Level of Care Code 37470 SUB INP/OBS CARE 2/35MIN Diagnoses Malignant pleural effusion J91.0 Extensive stage primary small cell carcinoma of lung C34.90 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
[2024-07-03] MEDS: dexAMETHasone 4 MG TAB PO SCH (11:29)
[2024-07-03] MEDS: LACTATED RINGER'S 1,000 ML IV SCH (11:29)
[2024-07-03] MEDS: ETOPOSIDE 200 MG in SODIUM CHLORIDE 0.9% 500 ML IV SCH (13:44)
[2024-07-03] MEDS: DIGOXIN 250 MCG in SYRINGE 9 ML IV STA (15:10)
[2024-07-03 15:25] LABS: BUN Creatinine Ratio 41.9 (10-20); Calcium 9.9 mg/dl (8.6-10.3); Creatinine Clr Calc Pharmacy 56.5 ml/min; Potassium 4.8 mmol/L (3.5-5.1)
--- NOTE | 2024-07-03 16:52 | Hematology/Oncology Prog Note ---
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 Will continue to evaluate the patient. Recommend outpatient management once discharged. His pain is well- controlled. Plan Oncology will continue to follow the patient make appropriate recommendations. Admission and Anticipated Discharge Date Admission Date: July 01, 2024 Subjective Currently doing well, tolerated the first dose of chemotherapy well. Reports no fever or chills. Review of Systems Review of Systems: All systems reviewed & are unremarkable except as noted in HPI & below Constitutional: as per Subjective / HPI Eyes: as per Subjective / HPI Ear, Nose, Mouth, Throat: as per Subjective / HPI Respiratory: as per Subjective / HPI Cardiovascular: as per Subjective / HPI Gastrointestinal: as per Subjective / HPI Genitourinary: + as per Subjective / HPI Musculoskeletal: as per Subjective / HPI Integumentary: as per Subjective / HPI Neurologic: as per Subjective / HPI Psychiatric: as per Subjective / HPI Endocrine: as per Subjective / HPI Hematologic / Lymphatic: as per Subjective / HPI Allergy / Immunological: as per Subjective / HPI Physical Exam Constitutional: WD/WN, vitals as above Eyes: PERRL, conjunctivae normal, anicteric sclerae ENMT: external ear and nose normal, oropharynx normal Neck: trachea midline, no thyromegaly Respiratory: normal respiratory effort, lungs clear to auscultation Cardiovascular: RRR, no murmur, no edema Gastrointestinal (Abdomen): normal bowel sounds, soft, nontender, no hepatosplenomegaly Musculoskeletal: no cyanosis or clubbing, extremities motor strength 5/5 Skin: no rashes, warm and dry Neurologic: patellar DTR's 2+ bilat, sensation intact Results & Data Vital Signs (Past 12 Hours) Vital Signs Temp Pulse Pulse Resp BP BP Pulse Ox 07/03/24 13:47 36.3 C L 145 H 18 98/63 L 94 07/03/24 10:52 36.1 C L 122 H 16 85/59 L 96 07/03/24 07:18 36.3 C L 130 H 14 106/62 95 07/03/24 05:37 116 H 12 104/69 90 07/03/24 05:36 116 H 104/69 07/03/24 05:21 157 H 124/79 07/03/24 05:21 124/79 O2 Del Method O2 Flow Rate 07/03/24 13:47 Room Air 07/03/24 10:52 Nasal Cannula 2.0 07/03/24 07:18 Nasal Cannula 2.0 07/03/24 05:37 Nasal Cannula 2 07/03/24 05:36 07/03/24 05:21 07/03/24 05:21
--- NOTE | 2024-07-03 18:25 | Hospitalist Progress Note ---
Date of Service July 03, 2024 Assessment & Plan (1) Cancer related pain: (2) Extensive stage primary small cell carcinoma of lung: (3) Acute hypotension: (4) Sleep apnea: Plan intractable pain - due to metastatic small cell cancer -improving. continue pain control (right now just getting oxycontin and tylneol, has not needed breakthrough meds) afib/RVR -known afib -rate control a little more delicate due to relatively low BP -continue metoprolol and augment with digoxin (did 250 first due to K earlier today - since K now normal additional 500) - if rates still poorly controlled and BP will not allow additional beta magalie - consider amiodarone gtt -resume eliquis- was held due to chest tube but does not appear further procedures will be needed at this time (start 2.5mg bid if no bleeding then increase back to 5mg bid) delirium /metabolic encephalopathy -no brain mets on recent MRI; preceding mild visual hallucinations suggest this was ongoing prior to admission -exacerbating factors appearing to be pain, stress, hospital environment, pain medications -pain vs pain meds will be a delicate balance since uncontrolled pain can often be as delirogenic as the medications themselves - will reduce dosing of pain meds (although he had only had 0.5mg dilauded and 0.5mg PO ativan(home med) last night 9p) -fortunately doing better today hypotension -better than before. yesterday was not an issue - new relative low BP since chemo and RVR (could easily relate to both) -nothing appearing septic/infectious/cardiogenic to my review. pulmonary does have on empiric abx but clinically doubt infection/pneumonia -IVF, rate control, follow metastatic small cell cancer -discussed risk/benefit of induction chemo from primary care perspective and would feel he's a good candidate to trial -> oncology started 07/02 OLEGARIO - likely due to hypotension/hypovolemia - improved w fluids hypercalcemia - malignancy related elevated LFTs - from metastases Admission and Anticipated Discharge Date Admission Date: July 01, 2024 Subjective feeling ok - still off and on confusion but pain better controlled afib through early AM - w relatively low BP. overnight management appreciated no chest sx though does not feel afib Review of Systems Review of Systems: All systems reviewed & are unremarkable except as noted in HPI & below Physical Exam Physical Exam: gen aao, pleasant more oriented today nad. heent nc at mmm breathing unlabored no accessory muscles good effort cardio irreg irreg tachy - on monitor ~120-130 rate range. no focal neuro deficits Results & Data Results & Data Vital Signs (Past 12 Hours) Vital Signs Temp Pulse Resp BP Pulse Ox O2 Del Method O2 Flow Rate 07/03/24 16:20 97.5 F L 132 H 19 95/63 L 90 Room Air 07/03/24 13:47 97.3 F L 145 H 18 98/63 L 94 Room Air 07/03/24 10:52 97.0 F L 122 H 16 85/59 L 96 Nasal Cannula 2.0 07/03/24 07:18 97.3 F L 130 H 14 106/62 95 Nasal Cannula 2.0 PG Care Time/CCT Total # of Minutes Spent Total Time Spent with Patient: Total time spent is greater than 50% in coordination of care (as documented) at patient's floor/unit and/or counseling patient: Coding Level of Care Code 86984 SUB INP/OBS CARE 3/50MIN Diagnoses Cancer related pain G89.3 Extensive stage primary small cell carcinoma of lung C34.90 Acute hypotension I95.9 Sleep apnea G47.30
[2024-07-03] MEDS: DIGOXIN 500 MCG in SYRINGE 8 ML IV STA (18:46)
[2024-07-03] MEDS ORDERED: STAT IV Infusion **Titration per Protocol STA (20:15)
[2024-07-03] MEDS ORDERED: AMIODARONE IV BOLUS & DRIP IV STA (20:15)
[2024-07-03] MEDS ORDERED: 0.2 MICRON FILTER SET 1 EACH IV STA (20:15)
[2024-07-03] MEDS: AMIODARONE / D5W 150 MG/100 ML BAG IV STA (21:00)
[2024-07-03] MEDS: APIXABAN 2.5 MG TAB PO SCH (21:26)
[2024-07-03] MEDS: AMIODARONE / D5W 360 MG/200 ML BAG IV ONE (21:32)
--- NOTE | 2024-07-04 02:52 | Communication Note ---
Date of Service: July 04, 2024 Patient with a-fib/flutter with rates persistently in 140s despite Digoxin. Due to hypotension, deferred Metoprolol at the time. Amiodarone bolus/drip started with achieved rate control but still in flutter at the time of my re-evaluation. Patient asymptomatic throughout this time. Resident Activity Tracking Resident Involvement: Resident Care Provided Care Provided: Adult Hospital Medicine
[2024-07-04] MEDS: AMIODARONE / D5W 360 MG/200 ML BAG IV SCH (03:12)
[2024-07-04] MEDS: ALBUTEROL HFA 8 GM INHALER INH PRN (05:48)
[2024-07-04 07:13] LABS: Hematocrit (blood only) 44.9 % (42.0-52.0); Hemoglobin 15.2 g/dl (14.0-18.0); Mean Corpuscular Hemoglobin 32.6 pg (25.0-34.0); Mean Corpuscular Hgb Conc 33.9 g/dL (32.0-36.0); Mean Corpuscular Volume 96.4 fL (80.0-100.0); Mean Platelet Volume 11.2 fL (9.4-12.4); Platelet Count 173 K/uL (130-400); RDW Coefficient of Variation 12.9 % (11.5-14.5); RDW Standard Deviation 45.4 fL (36.4-46.3); Red Blood Count 4.66 M/uL (4.70-6.10); White Blood Count 9.87 K/ul (4.8-10.8)
[2024-07-04 07:30] LABS: BUN Creatinine Ratio 40.6 (10-20); Calcium 10.4 mg/dl (8.6-10.3); Creatinine Clr Calc Pharmacy 52.6 ml/min; Potassium 4.8 mmol/L (3.5-5.1)
[2024-07-04] MEDS: METOPROLOL TARTRATE 1 MG/ML VIAL IV PRN (07:59)
--- NOTE | 2024-07-04 08:04 | Pulmonology Progress Note ---
Date of Service July 04, 2024 Assessment & Plan (1) Malignant pleural effusion: (2) Extensive stage primary small cell carcinoma of lung: Plan: Continue with treatment per oncology. 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 Would recommend catheter to be drained now on Saturday-Saturday and Saturday. He was saturating well on room air. He can follow-up with pulmonary as an outpatient to get the sutures removed I personally also showed the how to drain the Pleurx catheter All questions and queries were answered in depth No further recommendation from pulmonary perspective, will sign off Please call directly with any questions Please note the above document was generated using voice recognition software. It may contain grammatical, syntax or spelling errors.Any formal questions or concerns about the content, text or information contained within the body of this dictation should be directly addressed to the provider for clarification. Admission and Anticipated Discharge Date Admission Date: July 01, 2024 Subjective Patient seen and examined at bedside. No acute distress, notable symptoms overnight. Case was discussed with Dr. Garcia He stated he is feeling better compared to last couple of days Still complaining of shortness of breath on exertion Denied any chest pain No nausea or vomiting Has been afebrile Patient's was in the room at the time of examination Review of Systems 2 Review of Systems: All systems reviewed & are unremarkable except as noted in Subjective Physical Exam 2 Physical Exam: Constitutional: No acute distress HEENT: EOMI, PERRLA Respiratory system: Decreased air entry on the left side, no wheeze, rhonchi, mild crackles bilaterally CVS: S1-S2 positive, no murmurs or gallops Abdomen: Soft, nontender, nondistended, positive bowel sounds x4 Extremities: +2 pulses bilaterally radialis/ dorsalis pedis, no cyanosis, no edema Neuro: Awake alert oriented x3 Psych: Normal mood and affect G/U: No Byrne Skin: no rashes, warm and dry Lymphatic: no cervical or axillary lymphadenopathy Results & Data Results & Data Vital Signs (Past 12 Hours) Vital Signs Temp Pulse Pulse Resp BP Pulse Ox O2 Del Method 07/04/24 07:04 36.3 C L 141 H 18 122/79 91 Room Air 07/04/24 05:49 118 H 19 92 Room Air 07/04/24 04:45 109 H 07/04/24 02:56 129 H 07/04/24 02:40 36.7 C 136 H 16 114/67 91 Room Air 07/04/24 02:00 88 07/03/24 23:50 80 110/70 07/03/24 22:10 36.5 C 137 H 19 104/69 92 Room Air 07/03/24 21:46 106/72 07/03/24 20:31 137 H 101/67 Laboratory Results 07/04/24 06:42 07/04/24 06:42 PG Care Time/CCT Total # of Minutes Spent Total Time Spent with Patient: Total time spent is greater than 50% in coordination of care (as documented) at patient's floor/unit and/or counseling patient: Coding Level of Care Code 43676 SUB INP/OBS CARE 2/35MIN Diagnoses Malignant pleural effusion J91.0 Extensive stage primary small cell carcinoma of lung C34.90 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
[2024-07-04 08:30] LABS: Basophils # (auto) 0.02 K/uL (0.00-0.20); Basophils % (auto) 0.2 %; Echinocytes 1+; Eosinophils # (auto) 0.16 K/uL (0.00-0.50); Eosinophils % (auto) 1.6 %; Immature Granulocytes # (auto) 0.08 K/uL (0.01-0.20); Immature Granulocytes % (auto) 0.8 %; Lymphocytes % (auto) 7.1 %; Monocytes # (auto) 0.06 K/uL (0.11-0.59); Monocytes % (auto) 0.6 %; Neutrophils # (auto) 8.85 K/uL (1.40-6.50); Neutrophils % (auto) 89.7 %
[2024-07-04] MEDS: APIXABAN 2.5 MG TAB PO ONE (09:37)
[2024-07-04] MEDS: APIXABAN 5 MG TABLET PO SCH (09:37)
[2024-07-04] MEDS: PALONOSETRON 0.25 MG in SYRINGE 0 ML IV SCH (12:11)
--- NOTE | 2024-07-04 12:17 | Procedure Note ---
Procedure Note Date of Service July 04, 2024 Procedure: Therapeutic pleural drainage [employer]: Dr. Rodrigo Ramos Indication: Left-sided malignant pleural effusion Consent: Verbal consent was obtained Anesthesia: None Procedure: Patient already had a Pleurx catheter placed on the left side. Unfortunately the Tegaderm was placed directly onto the catheter. The nursing staff was educated regarding avoiding direct contact of Tegaderm with the Pleurx catheter. After removal of the catheter under aseptic precautions, 1 L of serosanguineous fluid was removed. Patient tolerated the procedure well. The catheter was dressed with 4 x 4's and another Tegaderm Complications: None Blood loss: None Patient was also at bedside and she was educated regarding how to drain the Pleurx catheter. [facility] [place] Procedure Codes (Charges) Pulmonary/Thoracic Procedure 1: Pulmonary and Thoracic: 40964 Pleural drainage w/o imaging Coding CPT Codes Pulmonary/Thoracic - Pulmonary and Thoracic: 32200 Pleural drainage w/o imaging ([id number]) Additional Codes Date of Service (PG.[email or web address])
--- NOTE | 2024-07-04 14:32 | Hospitalist Progress Note ---
Date of Service July 04, 2024 Assessment & Plan (1) Cancer related pain: (2) Extensive stage primary small cell carcinoma of lung: (3) Acute hypotension: (4) Sleep apnea: Plan intractable pain - due to metastatic small cell cancer -improving. pain control ongoing titration - interestingly has essentially had no narcotics for ~1.5 days. weaning down baseline doses since he may not actually need much (although right now on hold) afib/RVR -known afib -initially had be gentle w meds that could lower BP - and then as fib/flutter got faster - added dig, had to add amio -> now BP easier to control, increase BBlocker, doing better -resumed eliquis at full dosing delirium /metabolic encephalopathy -no brain mets on recent MRI; preceding mild visual hallucinations suggest this was ongoing prior to admission -exacerbating factors appearing to be pain, stress, hospital environment, pain medications -pain vs pain meds will be a delicate balance since uncontrolled pain can often be as delirogenic as the medications themselves - reduce dosing of pain meds (although see above has had very little) -may complicate dispo hypotension -better -nothing appearing septic/infectious/cardiogenic to my review. pulmonary does have on empiric abx but clinically doubt infection/pneumonia -follow metastatic small cell cancer -discussed risk/benefit of induction chemo from primary care perspective and would feel he's a good candidate to trial -> oncology started 07/02 OLEGARIO - likely due to hypotension/hypovolemia - improved w fluids hypercalcemia - malignancy related elevated LFTs - from metastases dispo - now more stable. main concern will be delirium and safe home environm ent. S.O. and dtr will be dicsussing - if they can care for him in current state, home may be an option; if not then PT/OT and possible short term SNF or rehab. Admission and Anticipated Discharge Date Admission Date: July 01, 2024 Subjective a little confused off and on. pain under good control. somewhat weak but albe to get around with supervision more than assistance. extensive d/w S.O. re current status as well as discharge planning Review of Systems Review of Systems: All systems reviewed & are unremarkable except as noted in HPI & below Physical Exam Physical Exam: gen awake pleasant off and on confused no distress heent nc at mmm breathing unlabored no accessory muscles good effort skin no rashes no pallor or icterus Results & Data Results & Data Vital Signs (Past 12 Hours) Vital Signs Temp Pulse Pulse Resp BP BP Pulse Ox 07/04/24 12:19 97.5 F L 84 19 100/70 91 07/04/24 10:32 73 104/74 07/04/24 10:30 73 109/75 07/04/24 08:30 100 H 103/67 07/04/24 08:00 07/04/24 08:00 114 H 07/04/24 08:00 07/04/24 07:59 145 H 102/67 07/04/24 07:04 97.3 F L 141 H 18 122/79 91 07/04/24 05:49 118 H 19 92 07/04/24 04:45 109 H 07/04/24 02:56 129 H 07/04/24 02:40 98.1 F 136 H 16 114/67 91 Pulse Ox O2 Del Method O2 Del Method O2 Flow Rate 07/04/24 12:19 Room Air 07/04/24 10:32 07/04/24 10:30 07/04/24 08:30 07/04/24 08:00 Room Air 07/04/24 08:00 07/04/24 08:00 95 Room Air 0 07/04/24 07:59 07/04/24 07:04 Room Air 07/04/24 05:49 Room Air 07/04/24 04:45 07/04/24 02:56 07/04/24 02:40 Room Air PG Care Time/CCT Total # of Minutes Spent Total Time Spent with Patient: Total time spent is greater than 50% in coordination of care (as documented) at patient's floor/unit and/or counseling patient: Coding Level of Care Code 72647 SUB INP/OBS CARE 3/50MIN Diagnoses Cancer related pain G89.3 Extensive stage primary small cell carcinoma of lung C34.90 Acute hypotension I95.9 Sleep apnea G47.30
[2024-07-05 09:29] LABS: Hematocrit (blood only) 42.9 % (42.0-52.0); Hemoglobin 14.4 g/dl (14.0-18.0); Mean Corpuscular Hemoglobin 32.2 pg (25.0-34.0); Mean Corpuscular Hgb Conc 33.6 g/dL (32.0-36.0); Mean Platelet Volume 11.1 fL (9.4-12.4); Platelet Count 153 K/uL (130-400); RDW Coefficient of Variation 12.9 % (11.5-14.5); RDW Standard Deviation 45.6 fL (36.4-46.3); Red Blood Count 4.47 M/uL (4.70-6.10); White Blood Count 6.79 K/ul (4.8-10.8)
[2024-07-05 09:31] LABS: C Reactive Protein 6.26 mg/dl (0-0.5); Calcium 9.8 mg/dl (8.6-10.3); Creatinine Clr Calc Pharmacy 58.4 ml/min; Potassium 4.4 mmol/L (3.5-5.1)
[2024-07-05 09:52] LABS: Basophils # (auto) 0.01 K/uL (0.00-0.20); Basophils % (auto) 0.1 %; Eosinophils # (auto) 0.15 K/uL (0.00-0.50); Eosinophils % (auto) 2.2 %; Immature Granulocytes # (auto) 0.05 K/uL (0.01-0.20); Immature Granulocytes % (auto) 0.7 %; Lymphocytes # (auto) 0.43 K/uL (1.20-3.40); Lymphocytes % (auto) 6.3 %; Monocytes # (auto) 0.03 K/uL (0.11-0.59); Monocytes % (auto) 0.4 %; Neutrophils # (auto) 6.12 K/uL (1.40-6.50); Neutrophils % (auto) 90.3 %
--- NOTE | 2024-07-05 18:13 | Hospitalist Progress Note ---
Date of Service July 05, 2024 Assessment & Plan (1) Cancer related pain: (2) Extensive stage primary small cell carcinoma of lung: (3) Acute hypotension: (4) Sleep apnea: Plan intractable pain - due to metastatic small cell cancer -improving. pain control ongoing titration - interestingly has essentially had no narcotics for several days - discussed pain/anxiety playing off eachother and given physical nidus of pain (pathologic fracture/rib met) would not have changed yet, more than likely the off/on delirium with concomitant inattentiveness making it so that he is not able to focus on the pain as much --->initially was anticipating a need for "basal bolus" narcotic dosing with oxycontin bid and oxycodone prn breakthrough -> he eventually may need to build to that, but for now would continue with scheduled tylenol, oxycodone QID prn breakthrough, and dc oxycontin afib/RVR -known afib -rates harder to control right around/after chemo - but now have been good - metoprolol 25mg bid (will need to send home with this) and eliquis delirium /metabolic encephalopathy -no brain mets on recent MRI; preceding mild visual hallucinations suggest this was ongoing prior to admission -exacerbating factors appearing to be pain, stress, hospital environment, pain medications -pain vs pain meds will be a delicate balance since uncontrolled pain can often be as delirogenic as the medications themselves - reduce dosing of pain meds (although see above has had very little) -may complicate dispo hypotension -better -nothing appearing septic/infectious/cardiogenic to my review. pulmonary does have on empiric abx but clinically doubt infection/pneumonia --> given hard to r/o, at discharge would finish empiric treatment with ~5 more days cefdinir metastatic small cell cancer -discussed risk/benefit of induction chemo from primary care perspective and would feel he's a good candidate to trial -> oncology started 07/02 -pleurX in to drain fluid - will ask that it be drained 07/06; then home nursing to start after this OLEGARIO - likely due to hypotension/hypovolemia - improved w fluids hypercalcemia - malignancy related elevated LFTs - from metastases dispo - now more stable. for home w support of S.O. and her dtr - we have discussed this at length yesterday and today and they have a good support system and their plan appears quite viable, in addition this is the patient's preferred plan and he is mobile enough that he can get in/out of bed to/from bathroom, etc. with waxing and waning delirium will need 24/ supervision - they are aware of this. he was to see palliative 07/06 in office - after discussions it will be much easier on him for hospital consult - consult placed, palliative providers messaged to update on situation. anticipate dc home tomorrow 07/06 after seen by palliative/pleurX drained again Admission and Anticipated Discharge Date Admission Date: July 01, 2024 Subjective ~45 mins over 2 visits predominantly counselling/coordinating care still off and on confused but aaron and her dtr angel believe they will be fine taking care of him at home in current condition pain has been surprisingly easy to control no new complaints today Review of Systems Review of Systems: All systems reviewed & are unremarkable except as noted in HPI & below Physical Exam Physical Exam: gen aao but off and on confused, fatigued, nad. heent nc at mmm breathing unlabored no accessory muscles good effort skin no rashes no pallor or icterus neuro no focal deficits Results & Data Results & Data Vital Signs (Past 12 Hours) Vital Signs Temp Pulse Pulse Resp BP BP Pulse Ox 07/05/24 14:26 98.1 F 87 18 113/76 92 07/05/24 10:57 97.9 F 85 16 114/75 93 07/05/24 08:00 07/05/24 08:00 112 H 07/05/24 08:00 07/05/24 07:21 97.7 F 82 16 130/76 92 Pulse Ox O2 Del Method O2 Del Method O2 Flow Rate 07/05/24 14:26 Room Air 07/05/24 10:57 Room Air 07/05/24 08:00 Trach Collar 07/05/24 08:00 07/05/24 08:00 95 Room Air 0 07/05/24 07:21 Room Air PG Care Time/CCT Total # of Minutes Spent Total Time Spent with Patient: Total time spent is greater than 50% in coordination of care (as documented) at patient's floor/unit and/or counseling patient: Coding Level of Care Code 04152 SUB INP/OBS CARE 3/50MIN Diagnoses Cancer related pain G89.3 Extensive stage primary small cell carcinoma of lung C34.90 Acute hypotension I95.9 Sleep apnea G47.30
[2024-07-06 07:35] LABS: Hematocrit (blood only) 42.4 % (42.0-52.0); Hemoglobin 13.9 g/dl (14.0-18.0); Mean Corpuscular Hemoglobin 31.4 pg (25.0-34.0); Mean Corpuscular Hgb Conc 32.8 g/dL (32.0-36.0); Mean Corpuscular Volume 95.9 fL (80.0-100.0); Mean Platelet Volume 10.9 fL (9.4-12.4); Platelet Count 141 K/uL (130-400); RDW Coefficient of Variation 12.8 % (11.5-14.5); RDW Standard Deviation 45.3 fL (36.4-46.3); Red Blood Count 4.42 M/uL (4.70-6.10); White Blood Count 5.27 K/ul (4.8-10.8)
--- NOTE | 2024-07-06 07:47 | Hospitalist Progress Note ---
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 pain control ongoing titration - interestingly has essentially had no narcotics for several days - discussed pain/anxiety playing off each other and given physical nidus of pain (pathologic fracture/rib met) would not have changed yet, more than likely the off/on delirium with concomitant inattentiveness making it so that he is not able to focus on the pain as much --->initially was anticipating a need for "basal bolus" narcotic dosing with oxycontin bid and oxycodone prn breakthrough -> he eventually may need to build to that, but for now would continue with scheduled tylenol, oxycodone QID prn breakthrough, and dc oxycontin metastatic small cell cancer -discussed risk/benefit of induction chemo from primary care perspective and would feel he's a good candidate to trial -> oncology started 07/02 -Thoracenteisis 07/04 , pleurX in to drain fluid - will ask that it be drained 07/06; then home nursing to start after this permanent afib/RVR -rates harder to control right around/after chemo - metoprolol 25mg bid (will need to send home with this) and eliquis delirium /metabolic encephalopathy -no brain mets on recent MRI; preceding mild visual hallucinations suggest this was ongoing prior to admission -exacerbating factors appearing to be pain, stress, hospital environment, pain medications -pain vs pain meds will be a delicate balance since uncontrolled pain can often be as delirogenic as the medications themselves - reduce dosing of pain meds (although see above has had very little) -may complicate dispo hypotension - improved -nothing appearing septic/infectious/cardiogenic to my review. pulmonary does have on empiric abx but clinically doubt infection/pneumonia --> given hard to r/o, at discharge would finish empiric treatment with ~5 more days cefdinir OLEGARIO - likely due to hypotension/hypovolemia - improved w fluids hypercalcemia - malignancy related elevated LFTs - from metastases dispo - now more stable. for home w support of S.O. and her dtr - we have discussed this at length yesterday and today and they have a good support system and their plan appears quite viable, in addition this is the patient's preferred plan and he is mobile enough that he can get in/out of bed to/from bathroom, etc. with waxing and waning delirium will need 24/7 supervision - they are aware of this. he was to see palliative 07/06 in office - after discussions it will be much easier on him for hospital consult - consult placed, palliative providers messaged to update on situation. anticipate dc home tomorrow 07/06 after seen by palliative/pleurX drained again Admission and Anticipated Discharge Date Admission Date: July 01, 2024 Results & Data Results & Data Vital Signs (Past 12 Hours) Vital Signs Temp Pulse Pulse Resp BP Pulse Ox O2 Del Method 07/06/24 03:38 97.9 F 90 15 151/81 H 92 Room Air 07/05/24 23:35 75 07/05/24 23:14 Room Air 07/05/24 23:01 97.9 F 70 17 138/77 93 Room Air 07/05/24 19:53 97.9 F 90 15 125/79 95 Room Air PG Care Time/CCT Total # of Minutes Spent Total Time Spent with Patient: Total time spent is greater than 50% in coordination of care (as documented) at patient's floor/unit and/or counseling patient: Coding Diagnoses Cancer related pain G89.3 Extensive stage primary small cell carcinoma of lung C34.90 Acute hypotension I95.9 Sleep apnea G47.30
[2024-07-06 08:06] LABS: Basophils # (auto) 0.01 K/uL (0.00-0.20); Basophils % (auto) 0.2 %; Eosinophils # (auto) 0.11 K/uL (0.00-0.50); Eosinophils % (auto) 2.1 %; Immature Granulocytes # (auto) 0.06 K/uL (0.01-0.20); Immature Granulocytes % (auto) 1.1 %; Lymphocytes # (auto) 0.55 K/uL (1.20-3.40); Lymphocytes % (auto) 10.4 %; Monocytes # (auto) 0.02 K/uL (0.11-0.59); Monocytes % (auto) 0.4 %; Neutrophils # (auto) 4.52 K/uL (1.40-6.50); Neutrophils % (auto) 85.8 %
[2024-07-06 08:38] LABS: BUN Creatinine Ratio 40.2 (10-20); Calcium 9.8 mg/dl (8.6-10.3); Creatinine Clr Calc Pharmacy 57.4 ml/min; Potassium 4.5 mmol/L (3.5-5.1)
--- NOTE | 2024-07-06 08:38 | Palliative Care Consultation ---
Date of Consultation July 06, 2024 Assessment & Plan (1) Palliative care by specialist: met with pt and his and daughter at bedside. Introduced Palliative Medicine and explained our role in advanced care planning, symptom management and navigation through the progression of life limiting disease. Patient and/or family were receptive to palliative services for goals of care discussions. Reviewed we are different from hospice, a home health nurse visiting service. Pt had scheduled outpt appt with palliative care for today after DC home. Family request care be established with palliative team prior to DC. Pt to follow up as outpt in palliative care clinic in one week from now. Pt will follow in outpt palliaitve care clinic for ongoing symptom management and navigation through the progression of disease. (2) Cancer related pain: Pt and family report adequate pain control with current medication (tylenol) pt has had no PRN use for more that 48hrs. Continue current analgesic medication regime, with follow up in Palliative care clinic on 07/13. (3) Quality of life palliative care encounter: Pt shared that he tolerated chemotherapy while inpt well, with only mild fleeting nausea. He shared that his only complaint has been a sore sacrum which he attributes to the uncomfortable bed. He shared desire to get home and continue chemotherapy as an outpt. reports plan for chemo is 3 daily sessions every three weeks. family expressed knowledge that the cancer is grossly metastatic and goal of treatment is palliaition not cure. Pt became tearful and shared worry that he may be a burden to his family at home. pt's and daughter discouraged this belief. Pt expressed fear of dying and concern for things he had hoped to accomplish. Also discussed engaging palliative foundation funded Conscious Dying Coaching with Rev Cynthia Marie. I reviewed that Rev Marie offers assistance on non clinical issues, supporting patients as they consider, navigate and become clear on what is most important for their end of life. Rev Marie helps patients align how they are currently living with the vision they see for yourself at the end, then identify and set goals, along with action steps for yourself to fulfill that vision. The focus is on the 5 domains of life: Spiritual, emotional, physical, mental, and practical. Ling would like this engagement with Rev Marie and I have provided pt with Rev Marie's contact information. Patient and family asked that I share her name and phone with Rev Marie to contact, as it is sometimes hard for pt to make the call, fearing rejection. I reviewed that End of life coaching and planning begins with 10 structured sessions we like to call, the best three months. Based on 10 total meetings over a 3-4 month period. Average meeting time 60-90 minutes. 2 meetings per domain. Over a three month period, there is support for the family and patient to identify their vision, current reality and steps to be taken to implement life fulfillment and care wishes in the spiritual, emotional, mental, physical and practical domains of life. This service includes: Best Three Months End-of-Life Care Coaching and Planning with Family, Patient and Co-coordination with Medical/Hospice Care Providers. Patient is agreeable to this service, contact information shared with patient and his . Plan Continue with scheduled tylenol, 5mg oxycodone Q4h prn breakthrough, and avoid terminal system operator opiates (previous poor experience of delirium and hypotension) PluerX catheter remains in place, /dtr educated on how to drain as needed for Dyspnea Follow up appt with Palliative care outpt clinic on 07/13/24 for symptom mgmt and ongoing navigation throughout progression of disease. History of Present Illness Reason for Consultation: goals of care / pain & symptom mgmt Requesting Physician: Gordon Wen MD Attending Physician: Denys Antunez MD History of Present Illness Mr Langston is a 74y male with an unfortunate recent diagnosis of widely metastatic small cell lung cancer and new onset A-fib. Patient with recurrent LEFT-sided malignant effusion requiring indwelling Pleurx catheter placement (06/30) for reaccumulation s/p initial thoracentesis on 06/15/2024 with removal of 1000 mL of pleural fluid. Biopsy of pleural fluid revealed Metastatic small cell carcinoma. [facility] induction of chemotherapy on day of admission, however he developed pain and hypotension and was sen to Ed for hypotension and pain to the LEFT-sided anterior chest wall. Allergies Allergy/AdvReac Type Severity Reaction Status Date / Time amoxicillin [From Augmentin] Allergy Intermediate stomach Verified 06/25/24 14:32 pain clavulanic acid Allergy Intermediate stomach Verified 06/25/24 14:32 [From Augmentin] pain levofloxacin [From Levaquin] Allergy Mild . Verified 06/30/24 11:36 lisinopril AdvReac Mild Cough Verified 06/30/24 11:36 Home Medications Medication Instructions Recorded Confirmed Type multivitamin 1 tab PO QAM 05/18/20 07/01/24 History valacyclovir 500 mg tablet 500 mg PO QAM #90 tabs 09/23/23 07/01/24 Rx fluticasone propionate 50 1 spray intranasal BID #16 grams 09/24/23 07/01/24 Rx mcg/actuation nasal spray,suspension omeprazole 40 mg capsule,delayed 40 mg PO DAILY #90 caps 09/30/23 07/01/24 Rx release tamsulosin 0.4 mg capsule 0.4 mg PO DAILY #90 caps 11/20/23 07/01/24 Rx olmesartan 5 mg tablet 5 mg PO DAILY #90 tabs 03/06/24 07/01/24 Rx rosuvastatin 10 mg tablet 10 mg PO DAILY #90 tabs 03/06/24 07/01/24 Rx cholecalciferol (vitamin D3) 25 25 mcg PO DAILY 04/30/24 07/01/24 History mcg (1,000 unit) capsule albuterol sulfate 90 mcg/actuation 2 puff inhalation Q6H PRN 05/23/24 07/01/24 Rx aerosol inhaler shortness of breath or wheezing #8.5 grams albuterol 90 mcg-budesonide 80 2 inh inhalation QID PRN shortness 05/26/24 07/01/24 Rx mcg/actuation HFA aerosol inhaler of breath #5.9 grams (Airsupra) azelastine 137 mcg (0.1 %) nasal 1 spray intranasal BID #30 mL 06/03/24 07/01/24 Rx spray apixaban 5 mg tablet (Eliquis) 5 mg PO BID #180 tabs 06/23/24 07/01/24 Rx benzonatate 200 mg capsule 200 mg PO TID PRN cough #30 caps 06/23/24 07/01/24 Rx lorazepam 0.5 mg tablet 0.5 mg PO BID PRN 06/23/24 07/01/24 Rx anxiety/panic/insomnia #60 tabs paroxetine HCl 20 mg tablet 20 mg PO HS #30 tabs 06/23/24 07/01/24 Rx mirtazapine 7.5 mg tablet 7.5 mg PO DAILY PRN insomnia #30 06/25/24 07/01/24 Rx tabs sennosides 8.6 mg tablet (Senna 8.6 mg PO BID PRN constipation #60 06/25/24 07/01/24 Rx Laxative) tabs metformin 500 mg tablet,extended 1,000 mg PO BID 06/30/24 07/01/24 History release 24 hr lidocaine 5 % topical patch 1 patch transdermal HS #20 ea 07/06/24 Rx metoprolol tartrate 25 mg tablet 25 mg PO BID #60 tabs 07/06/24 Rx oxycodone 5 mg tablet 5 mg PO QID PRN pain #20 tabs 07/06/24 Rx Patient History Medical History (Updated 07/06/24 @ 22:19 by POLLO Freeman) Osteoarthritis History of kidney stones Malignant melanoma Surgical History History of colonoscopy History of prostate biopsy benign History of left inguinal hernia repair History of melanoma excision History of Mohs micrographic surgery for skin cancer on side of nose History of wisdom tooth extraction History of carpal tunnel release of both wrists Status post correction of deviated nasal septum History of tonsillectomy and adenoidectomy Family History Brother Family history of diabetes mellitus Family hx colonic polyps Other No family history of adverse response to anesthesia Social History Smoking Status: Former smoker Tobacco Type: Cigarettes Age Started Using Tobacco: 16; Age Quit Using Tobacco: 46; packs per day: 1; Second Hand Exposure: No; Do You Dip or Chew Tobacco: No; Hx Alcohol Use: Yes Alcohol type: hard liquor Hx Substance Use: No Preferred Language: [place] Communication Ability: Effective 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 Beliefs That Will Affect Care: None marital status: Current Living Situation: Spouse Current Living Situation Comment: Amada Don current occupational status: retired Feels Safe at Home: Yes Dental Care, Regularly: Yes Seatbelt Use: always Sunscreen Use: Yes Assistive Devices: None Review of Systems Review of Systems: All systems reviewed & are unremarkable except as noted in HPI & below Physical Exam Physical Exam: Constitutional: No acute distress HEENT: EOMI, PERRLA Respiratory system: Decreased air entry on the left side, no wheeze, rhonchi, mild crackles bilaterally CVS: S1-S2 positive, no murmurs or gallops Abdomen: Soft, nontender, nondistended, positive bowel sounds x4 Extremities: +2 pulses bilaterally radialis/ dorsalis pedis, no cyanosis, no edema Neuro: Awake alert oriented x3 Psych: Normal mood and affect G/U: No Byrne Skin: no rashes, warm and dry Lymphatic: no cervical or axillary lymphadenopathy Results & Data Vital Signs (Past 12 Hours) Vital Signs Temp Pulse Pulse Resp BP BP Pulse Ox 07/06/24 08:00 36.5 C 87 20 120/70 90 07/06/24 03:38 36.6 C 90 15 151/81 H 92 07/05/24 23:35 75 07/05/24 23:14 07/05/24 23:01 36.6 C 70 17 138/77 93 O2 Del Method 07/06/24 08:00 Room Air 07/06/24 03:38 Room Air 07/05/24 23:35 07/05/24 23:14 Room Air 07/05/24 23:01 Room Air Laboratory Results Abnormal lab results 07/06/24 Range/Units 06:55 RBC 4.42 L (4.70-6.10) M/uL Hgb 13.9 L (14.0-18.0) g/dl Lymph # (Auto) 0.55 L (1.20-3.40) K/uL Owen # (Auto) 0.02 L (0.11-0.59) K/uL Chloride 109 H (98-107) mmol/L Anion Gap 1 L (3-11) BUN 49 H (6-23) mg/dl BUN/Creatinine Ratio 40.2 H (10-20) Diagnostic Findings Abdomen/Pelvis CT 07/01/24 12:22 CT OF THE ABDOMEN AND PELVIS WITH CONTRAST CLINICAL HISTORY: Left-sided pain. Metastatic disease. COMPARISON STUDY: CT of the abdomen and pelvis June 09, 2024. PET/CT June 24, 2024. TECHNIQUE: Following IV administration of 90 mL of Optiray, axial images of the abdomen and pelvis were obtained from the lung bases to the proximal femurs. Images were reviewed in the axial, sagittal, and coronal planes. IV contrast was administered without complication. Automated exposure control was utilized for the study. A dose lowering technique was utilized adhering to the principles of ALARA. FINDINGS: A left Pleurx catheter, left pleural effusion, thoracic lymphadenopathy, and small left pneumothorax are better depicted on the chest CT which will be reported separately. There is no pneumatosis, free air or portal venous gas. Extensive hepatic metastases are similar to PET/CT of July 04, 2024. These have increased since CT of June 09, 2024. The liver is enlarged. There is no biliary or pancreatic ductal dilatation. Abdominal lymphadenopathy is similar to recent PET/CT. Portacaval lymph node on image 129 measures 2.5 x 2.7 cm. There is no hydronephrosis. Spleen, adrenal glands and pancreas are unremarkable. No evidence for a bowel obstruction. Colonic diverticulosis without evidence for acute diverticulitis. Sclerotic skeletal lesions are better depicted on recent PET/CT. A lesion within the lateral left 11th rib with probable pathologic fracture is noted. There are no pathologic fractures within the lumbar spine. IMPRESSION: 1. Extensive hepatic metastases and abdominal lymphadenopathy since, similar to PET/CT of June 24, 2024. 2. No bowel obstruction. 3. Skeletal metastases, better depicted on PET/CT. Probable pathologic fracture of the lateral left 11th rib. ACT 112: Negative or not required by law. Electronically signed by: Rajinder Pérez M.D. 07/01/2024 1:[address] 07/01/24 12:22 CT OF THE CHEST WITH IV CONTRAST CLINICAL HISTORY: Left-sided chest pain. Small cell lung cancer. COMPARISON STUDY: Chest CT June 05, 2024. PET/CT June 24, 2024. Chest radiograph performed earlier today. TECHNIQUE: Following IV administration of 90 mL of Optiray, helical axial images of the chest were obtained. Sagittal and coronal reconstructions were viewed as well as maximal intensity projections on an independent 3-D workstation. Automated exposure control was utilized for the study. A dose lowering technique was utilized adhering to the principles of ALARA. CT DOSE: 2466.31 mGy.cm FINDINGS: A Pleurx catheter within the anterior left hemithorax is in place. Moderate left pleural effusion has decreased in size since PET/CT of June 24, 2014. There is a small pneumothorax. Multiple enhancing pleural lesions are noted. Additional extrapleural lesions are present. Extensive thoracic lymphadenopathy is similar to PET/CT of June 24, 2024. A right paratracheal lymph node on image 52 of 229 measures 3.7 x 2.6 cm. Central left upper lobe mass which results in occlusion of the left upper lobe bronchus and left upper lobe collapse is similar to prior PET/CT. Measurements are difficult to obtain given adjacent lymphadenopathy. There is mass effect with narrowing upon several pulmonary arteries. The pulmonary arteries are not well opacified on this examination. There is no right pneumothorax. Size of the heart is normal. There is no pericardial effusion. Dilatation of the ascending aorta measuring 4.6 cm is unchanged. Multiple sclerotic skeletal lesions are better depicted on prior PET/CT. A mildly displaced pathologic fracture the anterior left 11th rib is noted. Abdomen and pelvis CT will be reported separately. Upper abdominal adenopathy in extensive hepatic metastases are better depicted on that exam. IMPRESSION: 1. Pleurx catheter within the left anterior hemithorax. Moderate-sized malignant left pleural effusion, decreased in size since PET/CT of June 24, 2024. Small left pneumothorax. 2. No significant change in extensive thoracic, left supraclavicular and upper abdominal lymphadenopathy since PET/CT of June 24, 2024. 3. Left upper lobe mass with resultant left upper lobe collapse, similar to PET/CT. 4. Skeletal metastases, including a pathologic fracture of the anterior left 11th rib, depicted on the abdominal CT which will be reported separately. 5. Extensive hepatic metastases. ACT 112: Negative or not required by law. Electronically signed by: Rajinder Pérez M.D. 07/01/2024 1:32 PM Chest X-Ray 07/02/24 07:22 EXAM: XR chest 1V portable CLINICAL HISTORY: f/u TECHNIQUE: An X-ray image of the chest is obtained in AP projection. COMPARISON: 06/30/2024. FINDINGS: Pulmonary Parenchyma: Homogeneous opacification of the left mid and lower zone obscuring the left costophrenic recess. Bilateral prominent hilar bronchovascular/interstitial markings. Hairline thickening of the minor fissure. Heart and Mediastinum: Cardiomegaly with bilateral hilar congestion. No mediastinal widening or masses. No hilar or mediastinal lymphadenopathy. Bony Thorax: Bony thorax appears intact without fractures or deformities. Soft Tissues: Soft tissues overlying the chest wall are unremarkable. Left chest dense line reaching left upper hilar region, can be external tube/ chest tube, clinical correlation recommended. IMPRESSION: 1. Homogeneous opacification of left mid and lower zones obscuring the left costophrenic recess. Moderate left pleural effusion. 2. Cardiomegaly with bilateral hilar congestion. 3. Comparing the previous x-ray dated 06/30/2024, minimal increase in left lung aeration and mild increase central hilar congestion. Electronically signed by Chris Chnael 07-02-2024 08:23 AM PG Care Time/CCT Total # of Minutes Spent Total Time Spent with Patient: Total time spent is greater than 50% in coordination of care (as documented) at patient's floor/unit and/or counseling patient: Advanced Care Planning 95623 Advanced Care Planning 30 Min [place] [address] IN/OBS CONSULT LVL 2,35M Patient Type New History Expanded Problem Focused Exam Expanded Problem Focused Medical Decision Making Low Complexity Diagnoses Palliative care by specialist Z51.5 Cancer related pain G89.3 Quality of life palliative care encounter Z51.5 Additional Codes Advanced Care Planning - 27310 Advanced Care Planning 30 Min: 60660 Advanced Care Planning 30 Min ([id number])
[2024-07-06 11:48] VITALS: RESP 12; TEMP 98.1; O2SAT 92
[2024-07-06 12:11] VITALS: BP 151/81; PULSE 132
--- NOTE | 2024-07-06 17:28 | Discharge Summary ---
Discharge Summary Date of Service July 06, 2024 Principal Dx & Hospital Course #1 = Principal Diagnosis (1) Cancer related pain: (2) Extensive stage primary small cell carcinoma of lung: (3) Acute hypotension: (4) Sleep apnea: Plan 74 M with metastatic small cell lung cancer to bone and liver, with large left pleural effusion s/p pleurex cath placemet 07/04 intractable pain - due to metastatic small cell cancer -improving. pain control ongoing titration - interestingly has essentially had no narcotics for several days continue with scheduled tylenol, oxycodone QID prn breakthrough, and no residential opiates from previous poor experience metastatic small cell cancer -discussed risk/benefit of induction chemo from primary care perspective and would feel he's a good candidate to trial -> oncology started 07/02 -Thoracentesis 07/04 , pleurX in to drain fluid - drained 07/06 prior to discharge permanent afib/RVR -rates harder to control right around/after chemo - metoprolol 25mg bid (will need to send home with this) and eliquis delirium /metabolic encephalopathy -no brain mets on recent MRI; preceding mild visual hallucinations suggest this was ongoing prior to admission -exacerbating factors appearing to be pain, stress, hospital environment, pain medications hypotension - improved -nothing appearing septic/infectious/cardiogenic to my review. pulmonary does have on empiric abx no abtx at time of discharge OLEGARIO - likely due to hypotension/hypovolemia - improved w fluids hypercalcemia - malignancy related elevated LFTs - from metastases Notes For Next Care Provider pt did have 5 days of emperic antibiotics while inpt, but not continued at dc Admission HPI Per Admitting Provider severe pain has been going on for quite a while - maybe worse since pleurX but really has been bad before that too terrible last month -> thought he had pneumonia - didn't get better w abx -> CT scan - metastatic cancer. small cell. was actually to have induction chemo today - but pain terrible and couldn't tolerate the pain - given fentanyl -> drop in BP temporarily. sent to ER both for BP and pain control. pain heavily L side of chest although does seem to have some more diffuse pain. pain worse w cough/deep breath/movement. again preceded pleurX placement has supportive family takes eliquis for afib - has been holding last several days due to pleurX placement family notes that heme/onc thought as long as he was stable they may be able to start induction chemo while inpatient Discharge Exam pleasant, decreased breath sounds at left base Discharge Plan Discharge Items Patient Disposition: Home - Home Health Services Reason For Visit: UNCONTROLLED CANCER PAIN Discharge Diagnosis: uncontrolled cancer pain right sided catheter to drain lung fluid Activity: Per Instructions section Activity Comment: slowly increase activity Non-emergency contact: Primary Care Provider and Specialist Call non-emergency contact if: your symptoms worsen Follow-up/Referrals: An Rowe MD [Primary Care Provider] - 07/10/24 10:00 am (Hospital follow up scheduled on 07/10/24 at 10:00 with Savannah ABAD) Jud Bernardo DNP [Nurse Practitioner] - 07/13/24 3:00 pm (appointment with Dr Bernardo 07-13-24 at 3:00 p.m.) Diet: Regular Addtl Attending Provider Instructions: please continue to take tylenol for pain, you may take 3 doses of 1000mg on a scheduled basis and add another dose if needed use oxycodone very cautiously, low dose follow up with oncology and outpt palliative care medicine Pending Studies at Discharge: No Stand-Alone Forms: My [employer], Smoking Cessation Medications and DC Order Prescriptions: New metoprolol tartrate 25 mg Tablet 25 mg PO BID Qty: 60 4RF lidocaine 5 % Adhesive Patch,Medicated 1 patch transdermal HS Qty: 20 0RF oxycodone 5 mg Tablet 5 mg PO QID PRN (Reason: pain) Qty: 20 0RF Continued valacyclovir 500 mg tablet 500 mg PO QAM Qty: 90 3RF fluticasone propionate 50 mcg/actuation spray,suspension 1 spray intranasal BID Qty: 16 2RF Rx Instructions: administer into each nostril omeprazole 40 mg capsule,delayed release(DR/EC) 40 mg PO DAILY Qty: 90 3RF tamsulosin 0.4 mg capsule 0.4 mg PO DAILY Qty: 90 3RF sennosides [Senna Laxative] 8.6 mg tablet 8.6 mg PO BID PRN (Reason: constipation) Qty: 60 0RF mirtazapine 7.5 mg tablet 7.5 mg PO DAILY PRN (Reason: insomnia) Qty: 30 2RF benzonatate 200 mg capsule 200 mg PO TID PRN (Reason: cough) Qty: 30 0RF paroxetine HCl 20 mg tablet 20 mg PO HS Qty: 30 2RF Eliquis 5 mg tablet 5 mg PO BID Qty: 180 0RF lorazepam 0.5 mg tablet 0.5 mg PO BID PRN (Reason: anxiety/panic/insomnia) Qty: 60 0RF rosuvastatin 10 mg tablet 10 mg PO DAILY Qty: 90 3RF olmesartan 5 mg tablet 5 mg PO DAILY Qty: 90 3RF cholecalciferol (vitamin D3) 25 mcg (1,000 unit) capsule 25 mcg PO DAILY azelastine 137 mcg (0.1 %) spray,non-aerosol 1 spray intranasal BID Qty: 30 3RF Airsupra 90-80 mcg/actuation HFA aerosol inhaler 2 inh inhalation QID PRN (Reason: shortness of breath) Qty: 5.9 1RF albuterol sulfate 90 mcg/actuation HFA aerosol inhaler 2 puff inhalation Q6H PRN (Reason: shortness of breath or wheezing) Qty: 8.5 0RF multivitamin Tablet 1 tab PO QAM metformin 500 mg tablet extended release 24 hr 1,000 mg PO BID Discontinued tadalafil 20 mg tablet 20 mg PO DAILY Qty: 90 3RF OxyContin 20 mg tablet 20 mg PO BID Discharge Orders: Discharge Order (Routine); Ordered 07/06/24 Ordered By: Denys Antunez Admission Data Admit Date/Time: 07/01/24 16:39 Attending Provider: Denys Antunez Admit Provider: Gordon Wen Primary Care Provider: An Rowe Other Providers: Nataliya Hung; Sreekanth Elizondo; Lamont Gould; [facility]; Darlin Godwin Other Interventions: Discharge Summary Assessment (RN) Last Done: 07/06/24 12:08 Hospital Stay Data Consultations 07/01/24 14:53 ED Decision to Admit Stat 07/02/24 07:58 Consult Oncology Routine 07/05/24 18:01 Consult Palliative Care Routine Diagnostic Imagining Performed 07/01/24 12:22 CT Abd and Pelvis [CT abd pelvis IV con only] Stat CT chest diagnostic w con Stat Pending Results Patient Have Any Pending Studies at Discharge: No Discharge Instructions Given to Patient (Per Discharging Provider) please continue to take tylenol for pain, you may take 3 doses of 1000mg on a scheduled basis and add another dose if needed use oxycodone very cautiously, low dose follow up with oncology and outpt palliative care medicine Total Time Total Time Spent Total Time Spent (In Minutes): It required greater than 30 minutes to prepare this patient for discharge. Coding Level of Care Code 02996 INP/OBS DISCH >30 MIN Diagnoses Cancer related pain G89.3 Extensive stage primary small cell carcinoma of lung C34.90 Acute hypotension I95.9 Sleep apnea G47.30
--- NOTE | 2024-07-14 07:38 | Coding Query ---
CODING QUERY To promote full compliance with coding requirements relating to patient care, provider participation is requested in all cases of economic development manager uncertainty. Please assist us with the question(s) below: Coding Question(s): Per the documentation is the procedure nots the catheter was removed under aseptic precautions but doesn't state how it was removed, there was also fluid removed. Please document how the catheter and the fluid was removed. Physician's Response(s): The patient came in to have fluid removed but there was not enough fluid does he got the pain Neither catheter nor fluid was removed. The patient had pain as there was no fluid. He just had a chest x-ray done as he was complaining of pain which was also normal. I hope this explains Thank you Cassidy Kwon Principal Diagnosis: "that condition established after study, to be chiefly responsible for occasioning the admission of the patient to the hospital for care." Co-Existing Principal Diagnosis: "when two or more diagnoses equally meet the criteria for principal diagnosis as determined by the circumstances of admission, diagnostic work up, and/or therapy provided, and the Alphabetic Index, Tabular List, or another coding guideline does not provide sequencing direction, any one of the diagnoses may be sequenced first." "When the physician has documented what appears to be a current diagnosis in the body of the record, but has not included the diagnosis in the final diagnostic statement, the physician should be asked whether the diagnosis should be added." (Source [facility] 2 QTR90. p3-4) CHELY
== END 2024-07-06 13:24 | disposition home health service (06) | DRG 180 ==
LOC: ED 11:44 → SUATTDRO 16:39 → 2S 16:39

== ENCOUNTER 2024-10-27 12:11 | Inpatient (IN) ==
--- NOTE | 2024-10-27 13:28 | XRay Report ---
XR chest 1V portable CLINICAL HISTORY: Weakness. Small cell lung cancer. COMPARISON STUDY: Chest radiograph October 20, 2024. Chest CT July 01, 2024 FINDINGS: Left-sided Dlprhi-[id number]-[id number] remains in place. There is a small left apical pneumothorax. Small left pleural effusion is also present. Left basilar opacity is noted. There is asymmetric interstiti al thickening, greater within the left lung. Cardiomediastinal silhouette is stable. IMPRESSION: 1. Small left hydropneumothorax. 2. Increase in left basilar opacity and asymmetric interstitial thickening within the left lung. ACT 112: Negative or not required by law. Electronically signed by: Rajinder Pérez M.D. 10/27/2024 1:27 PM
[2024-10-27 13:44] LABS: Hematocrit (blood only) 32.7 % (42.0-52.0); Hemoglobin 12.0 g/dl (14.0-18.0); Immature Granulocytes # (auto) 0.02 K/uL (0.01-0.20); Immature Granulocytes % (auto) 0.5 %; Mean Corpuscular Hemoglobin 32.7 pg (25.0-34.0); Mean Corpuscular Volume 89.1 fL (80.0-100.0); Platelet Count 174 K/uL (130-400); RDW Standard Deviation 40.4 fL (36.4-46.3); Red Blood Count 3.67 M/uL (4.70-6.10); White Blood Count 4.16 K/ul (4.8-10.8)
[2024-10-27] MEDS: PLASMA-LYTE A 1,000 ML IV ONE (13:55)
--- NOTE | 2024-10-27 14:02 | Emergency Department Note ---
Impression & Plan Acute hyponatremia, Generalized weakness, Ambulatory dysfunction, SCLC (small cell lung carcinoma) ED Provider Note NAME: JIMBO CLARKE AGE: 74 SEX: M : 1950 ARRIVES VIA: Walk-In INFORMANT: Patient, ED PROVIDER(S): Abhinav Louis DO CHIEF COMPLAINT: vertigo HPI: This is a 74-year-old male with the PMHx of SCLC on immunotherapy with last chemotherapy session approximately 5 weeks ago, SELVIN, BPH, HTN, HLD, GERD and HSV presenting to [facility] for further evaluation of generalized weakness and vertiginous symptoms. Patient states over the last few days he has been weak. He has had symptoms of blurry vision and difficulty focusing with visual acuity. Patient does have possible double vision. Patient does report intermittent headaches. He is lightheaded. He does have some vertiginous symptoms as well. Patient states he has been eating and drinking as he normally does. He states his intake has been good and doubts that he is dehydrated. The only new medication is immunotherapy that has been initiated within the last month. He is no longer taking chemotherapy. They report that he is in remission. They deny fever or chills. No cough or congestion. Denies chest pain or palpitations. No shortness of breath. They deny abdominal pain, nausea and vomiting. No urinary complaints. No recent changes in bowel movements. Patient denies recent changes in medications or OTC supplements. Patient offers no other complaints, today. ADDITIONAL HISTORY OBTAINED: Per HPI Chronic Medical/Social Conditions Affecting Care: Per HPI PAST MEDICAL HISTORY: See Below PAST SURGICAL HISTORY: See Below FAMILY HISTORY: See Below SOCIAL HISTORY: See Below HOME MEDICATIONS: See Below ALLERGIES: See Below VITALS: See Below PHYSICAL EXAMINATION: GENERAL: Sitting up in bed, alert, well appearing, well nourished, no distress, non-toxic EYE EXAM: normal conjunctiva. PERRL and EOM's grossly intact. OROPHARYNX: no exudate, no erythema, lips, buccal mucosa, and tongue normal and mucous membranes are moist NECK: supple, no nuchal rigidity, no adenopathy, non-tender LUNGS: Clear to auscultation. Normal chest wall mechanics HEART: no murmurs, regular rate, regular rhythm ABDOMEN: abdomen soft, non-tender, normo-active bowel sounds, no masses, no rebound or guarding. BACK: Back is symmetrical on inspection and there is no deformity, no midline tenderness, no CVA tenderness. SKIN: no rashes and no bruising UPPER EXTREMITIES: upper extremities are grossly normal. LOWER EXTREMITIES: No pitting edema. NEURO EXAM: Normal sensorium, cranial nerves II-XII grossly intact, normal speech, no gross weakness of arms, no gross weakness of legs. No drift. Finger to nose intact. Gross sensation intact. NIHSS 0. MEDICAL DECISION MAKING: Differential diagnosis includes but not limited to peripheral vertigo, central vertigo, stroke, metastatic cancer, pneumonia, UTI, electrolyte derangements, dehydration, deconditioning, immunotherapy side effect, ACS, dysrhythmia In summary, this is a 74-year-old presenting for multiple complaints that are mostly significant for lightheadedness, vertiginous symptoms and weakness. Triage and nursing notes reviewed. Patient is afebrile and hemodynamically stable. Diagnostics interpreted by me include EKG and cardiac monitoring as listed below: -Cardiac Monitoring: An order was placed for continuous cardiac monitoring. The monitor shows a rate of 60-70s with regular rhythm. -ECG: EKG independently interpreted by me reveals normal sinus rhythm at a ventricular rate of 61 bpm with a first-degree AV block. No significant ST segment changes to suggest STEMI. Intervals otherwise within normal limits. History provided by the patient includes SCLC with liver metastasis. Family reports he is currently in remission but ongoing follow-up as well as immunotherapy. I reviewed outpatient records and chemotherapy as well as immunotherapy recommendations. He was originally on carboplatin and etoposide as well as atezolizumab. Physical examination reveals neurovascularly intact exam GCS 15. No focal deficits. He does appear mildly deconditioned and hypovolemic. Given history and presentation, Patient and family are significantly concerned for recurrence of his malignancy. He does have these vague complaints with associated vision changes, lightheadedness and ambulatory dysfunction. My concern would be for possible intracranial pathology. I would be concerned more for brain metastasis rather than stroke. Discussed regarding further workup with the patient and his . Discussed with him regarding my concerns and he would like to know if he had possible intracranial pathology. The patient states this is within his goals of care. Patient does follow with palliative care. I discussed with and the patient given his extensive concern with recurrence of his malignancy, anxiety and PTSD that they should follow-up with palliative care as they have therapy and significant expertise with these feelings. Will obtain laboratory workup as well. While the patient has no systemic signs or symptoms including no fevers, will obtain inflammatory markers as well as basic infectious workup including chest x-ray and urinalysis and inflammatory markers. Patient was provided with IV fluid resuscitation. Labs and imaging reviewed. Pertinent findings include chronic leukopenia and anemia that are similar to prior. Patient found to be acutely hyponatremic at 116. I do feel this likely explains the patient's symptoms. 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 Electrolyte derangements could be related to the patient's immunotherapy as well. Will add further urine studies as well as serum osmolality to the patient's workup. Patient will require admission given acute hyponatremia. I do feel it is still reasonable obtain MRI with the patient's symptoms and cancer history. I would be concerned for possible metastatic disease to the brain. Plan to continue to trend the patient's sodium as an inpatient and further workup for etiology. No significant leukocytosis but does have mild leukopenia. Procalcitonin was mildly elevated without a source of infection. He has not had any fevers. Patient's vital signs are stable. Suspect he is likely experiencing electrolyte derangements rather than infectious etiologies. Patient's serum osmolality was found to be low. Patient's pending further urine studies for evaluation of etiology of the patient's hypoosmotic hyponatremia. chest x-ray independently interpreted by me reveals a Mediport in place. There is a small hydropneumothorax on the left. I independently compared this to prior studies that show this is stable. No findings to suggest pneumonia. Given his symptoms as well as safety concern and acute hyponatremia, we will discuss with the hospitalist team for further admission. Patient was discussed with Dr. Nazario, [facility] hospitalist team, and he was agreeable to admit the patient. Patient's workup, results and treatment plan discussed with the patient as well as his at the bedside and they verbalized understanding and agreement to admission. 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 Cancer related pain 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 Lung mass Obstructive sleep apnea Primary hypertension Benign localized prostatic hyperplasia with lower urinary tract symptoms (LUTS) Elevated PSA Hypertension GERD without esophagitis Bilateral nonpulsatile tinnitus Obesity (BMI 30.0-34.9) Prediabetes (Chronic) Mixed hyperlipidemia Dyspnea on exertion Former smoker Myalgia Ingrown toenail of left foot with infection (Acute) 05/2020 Rib pain on right side Nephrolithiasis Acid reflux disease (Acute) Anxiety disorder (Acute) Cervicalgia (Acute) Genital herpes simplex (Acute) Hypercholesterolemia (Acute) Inhibited sexual excitement (Acute) Laryngopharyngeal reflux (Acute) Medical History Aortic stenosis mild per 05/2024 ECHO Mild ascending aorta dilatation mildly dilated ascending aorta: 4.5cm (05/2024 ECHO) 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; following with and undergoing chemo and immunotherapy 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 dx 05/2024 History of prediabetes "not a current diagnosis" per pt Malignant pleural effusion dx 06/2024 [facility]; s/p pleurex cath placement 07/04/24; pt saw pulm and drained 08/04/24; catheter remains in place Hx of hypercholesterolemia RAMIRES (dyspnea on exertion) hx, "no recent issues" Hx of tinnitus History of BPH Hx of anxiety disorder Hx of gastroesophageal reflux (GERD) History of atrial fibrillation currently on eliquis, no longer has to see cardiology History of hypertension recent med changes 2/2 hypotensive with chemo tx Hx of basal cell carcinoma Sleep apnea no longer uses cpap Osteoarthritis History of kidney stones no sx. Malignant melanoma hx, removed Surgical History History of removal of Port-a-Cath (09/01/24) Insertion of Access Port with Fluoroscopy Left Subclavian(Left) - Lamont Young DO Hx of chest tube placement Pleurx cath placement 06/30/24 History of thoracentesis 06/15/24 and 07/24/24, both at [facility] History of uvulopalatopharyngoplasty for his sleep apnea History of colonoscopy History of prostate biopsy benign History of left inguinal hernia repair History of melanoma excision History of Mohs micrographic surgery for skin cancer on side of nose History of wisdom tooth extraction History of carpal tunnel release of both wrists Status post correction of deviated nasal septum History of tonsillectomy and adenoidectomy Family History Brother Prostate cancer, Onset Age: 68 ADT injections; Mother Rheumatic fever Father Guillain-Peculiar disease Social History Smoking Status: Former smoker Tobacco Type: Cigarettes Age Started Using Tobacco: 16; Age Quit Using Tobacco: 46; packs per day: 1; Second Hand Exposure: No; Do You Dip or Chew Tobacco: No; Hx Alcohol Use: No Hx Substance Use: No Preferred Language: Namibian Communication Ability: Effective Hearing Ability: Normal Emergency Spill Response Technician Required: No Beliefs That Will Affect Care: None marital status: Current Living Situation: Spouse Current Living Situation Comment: Amada Don current occupational status: retired current occupation: [employer] How many Children do You have: 0 Feels Safe at Home: Yes Childhood Exposure to Second-Hand Smoke: No Dental Care, Regularly: Yes Seatbelt Use: always Sunscreen Use: Yes Assistive Devices: Glasses Allergies Allergies Allergy/AdvReac Type Severity Reaction Status Date / Time amoxicillin [From Augmentin] Allergy Intermediate stomach Verified 10/27/24 14:58 pain clavulanic acid Allergy Intermediate stomach Verified 10/27/24 14:58 [From Augmentin] pain levofloxacin [From Levaquin] Allergy Mild . Verified 10/27/24 14:58 lisinopril AdvReac Mild Cough Verified 10/27/24 14:58 Home Meds Home Medications Medication Instructions Recorded Confirmed cholecalciferol (vitamin D3) 25 25 mcg PO QAM 04/30/24 10/27/24 mcg (1,000 unit) capsule polyethylene glycol 3350 17 17 g PO HS 08/25/24 10/27/24 gram/dose oral powder (Miralax) acetaminophen 500 mg tablet 500 mg PO BID 08/26/24 10/27/24 rosuvastatin 10 mg tablet 10 mg PO QAM 08/26/24 10/27/24 tamsulosin 0.4 mg capsule 0.4 mg PO QAM 08/26/24 10/27/24 magnesium 250 mg tablet 250 mg PO DAILY 10/14/24 10/27/24 metoprolol succinate 25 mg 12.5 mg PO QAM 10/14/24 10/27/24 tablet,extended release 24 hr tadalafil 20 mg tablet 20 mg PO DAILY 10/14/24 10/27/24 calcium carbonate (Calcium 600) 600 mg PO QAM 10/27/24 10/27/24 docusate sodium 100 mg capsule 100 mg PO HS 10/27/24 10/27/24 (Colace) oxycodone 5 mg tablet 5 mg PO QID PRN Pain 10/27/24 10/27/24 Previous Rx's Medication Instructions Recorded apixaban 5 mg tablet (Eliquis) 5 mg PO BID #180 tabs 06/23/24 valacyclovir 500 mg tablet 500 mg PO QAM #90 tabs 09/15/24 omeprazole 40 mg capsule,delayed 40 mg PO QAM #90 caps 10/12/24 release doxycycline hyclate 100 mg tablet 100 mg PO BID 7 days #14 tabs 10/21/24 Results & Data (ED) Vital Signs Vital Signs - 24 hr 10/27/24 12:28 10/27/24 13:13 10/27/24 13:13 Temperature 36.7 C Temperature Source Skin Pulse Rate 68 62 Pulse Rate [Apical] Pulse Rhythm Regular Pulse Rhythm [Apical] Pulse Strength [Apical] Respiratory Rate 20 14 Respiratory Effort / Characteristics Non-Labored Spontaneous Respiratory Depth Normal Respiratory Pattern Regular Blood Pressure 113/72 Blood Pressure [Right Arm] Blood Pressure Mean 85 Blood Pressure Mean [Right Arm] Blood Pressure Position [Right Arm] Pulse Oximetry 96 96 96 Oxygen Delivery Method Room Air Room Air Room Air Sepsis Recent Fever Within 48 Hours No Sepsis New/Unexplained Change in Mental Status N/A Sepsis Action Taken by Nursing No Action Required 10/27/24 13:15 10/27/24 13:54 10/27/24 15:00 Temperature Temperature Source Pulse Rate 61 Pulse Rate [Apical] 62 63 Pulse Rhythm Pulse Rhythm [Apical] Regular Pulse Strength [Apical] Normal Respiratory Rate 14 18 Respiratory Effort / Characteristics Non-Labored Spontaneous Respiratory Depth Normal Respiratory Pattern Regular Blood Pressure Blood Pressure [Right Arm] 120/73 134/81 Blood Pressure Mean Blood Pressure Mean [Right Arm] 88 98 Blood Pressure Position [Right Arm] Lying Pulse Oximetry 97 98 Oxygen Delivery Method Room Air Sepsis Recent Fever Within 48 Hours Sepsis New/Unexplained Change in Mental Status Sepsis Action Taken by Nursing Laboratory Data 10/27/24 13:24 10/27/24 13:24 Lab Results 10/27/24 10/27/24 Range/Units 13:24 15:45 WBC 4.16 L (4.8-10.8) K/ul RBC 3.67 L (4.70-6.10) M/uL Hgb 12.0 L (14.0-18.0) g/dl Hct 32.7 L (42.0-52.0) % MCV 89.1 (80.0-100.0) fL MCH 32.7 (25.0-34.0) pg MCHC 36.7 H (32.0-36.0) g/dL RDW Std Deviation 40.4 (36.4-46.3) fL RDW Coeff of Toribio 12.3 (11.5-14.5) % Plt Count 174 (130-400) K/uL MPV 9.0 L (9.4-12.4) fL Immature Gran % (Auto) 0.5 % Neut % (Auto) 64.9 % Lymph % (Auto) 19.7 % [place] % (Auto) 11.8 % Eos % (Auto) 2.6 % Baso % (Auto) 0.5 % Neut # (Auto) 2.70 (1.40-6.50) K/uL Lymph # (Auto) 0.82 L (1.20-3.40) K/uL [place] # (Auto) 0.49 (0.11-0.59) K/uL Eos # (Auto) 0.11 (0.00-0.50) K/uL Baso # (Auto) 0.02 (0.00-0.20) K/uL Immature Gran # (Auto) 0.02 (0.01-0.20) K/uL PT 10.6 (9.0-12.0) Seconds INR 1.0 (0.9-1.1) APTT 33 H (21-31) Seconds PTT Ratio 1.2 Sodium 116 L* (136-145) mmol/L Potassium 5.0 (3.5-5.1) mmol/L Chloride 87 L (98-107) mmol/L Carbon Dioxide 25 (21-32) mmol/L Anion Gap 4 (3-11) BUN 13 (6-23) mg/dl Creatinine 0.67 (0.6-1.4) mg/dl Est Cr Clr Drug Dosing 106.6 ml/min eGFR 98.59 BUN/Creatinine Ratio 19.4 (10-20) Glucose 85 (70-99(Fasting)) mg/dl Osmolality 242 L (280-300) mOsm/kg Calcium 8.8 (8.6-10.3) mg/dl Magnesium 1.8 (1.7-2.4) mg/dl Total Bilirubin 1.0 (0.2-1.0) mg/dl AST 31 (13-39) U/L ALT 29 (7-52) U/L Alkaline Phosphatase 134 H (34-104) U/L Troponin I High Sens 4.1 (0-20) pg/ml C-Reactive Protein < 0.50 (0-0.5) mg/dl Total Protein 5.8 L (6.0-8.3) gm/dl Albumin 3.7 (3.4-5.0) gm/dl Globulin 2.1 L (2.5-4.0) gm/dl Albumin/Globulin Ratio 1.8 (0.9-2) Procalcitonin 0.55 H (0-0.5) ng/ml TSH 1.290 (0.300-4.500) uIu/ml Ur Random Sodium 105 mmol/L Urine Comment Administered Medications Discontinued Medications Parenteral Electrolytes (Plasma-Lyte A Ph 7.4) 1,000 mls @ 999 mls/hr IV .Q1H1M ONE Stop: 10/27/24 14:32 Last Infusion: 10/27/24 14:30 Dose: 0 mls/hr Documented By: Admin: 10/27/24 13:55 Dose: 999 mls/hr Documented By: CASI Imaging Data Radiologist's Impression: Chest X-Ray 10/27/24 12:32 XR chest 1V portable CLINICAL HISTORY: Weakness. Small cell lung cancer. COMPARISON STUDY: Chest radiograph October 20, 2024. Chest CT July 01, 2024 FINDINGS: Left-sided [id number] remains in place. There is a small left apical pneumothorax. Small left pleural effusion is also present. Left basilar opacity is noted. There is asymmetric interstitial thickening, greater within the left lung. Cardiomediastinal silhouette is stable. IMPRESSION: 1. Small left hydropneumothorax. 2. Increase in left basilar opacity and asymmetric interstitial thickening within the left lung. ACT 112: Negative or not required by law. Electronically signed by: Rajinder Pérez M.D. 10/27/2024 1:27 PM Discharge Plan Visit Data Chief Complaint: Vertigo Stated Complaint: DIZZINESS , BALANCE ED Provider: Abhinav Louis Discharge Problem: Acute hyponatremia, Generalized weakness, Ambulatory dysfunction, SCLC (small cell lung carcinoma) Patient Disposition: Admitted As Inpatient Condition: Serious Forms Stand Alone Forms: [facility] [place] [employer] Prescriptions Prescriptions: No Action polyethylene glycol 3350 [Miralax] 17 gram/dose powder 17 g PO HS valacyclovir 500 mg tablet 500 mg PO QAM Qty: 90 3RF omeprazole 40 mg capsule,delayed release(DR/EC) 40 mg PO QAM Qty: 90 3RF doxycycline hyclate 100 mg tablet 100 mg PO BID 7 Days Qty: 14 0RF Rx Instructions: Start Date 10/21/24 x7 day supply Eliquis 5 mg tablet 5 mg PO BID Qty: 180 0RF Hold Instructions: Resume on 09/02/24. cholecalciferol (vitamin D3) 25 mcg (1,000 unit) capsule 25 mcg PO QAM magnesium 250 mg tablet 250 mg PO DAILY tadalafil 20 mg tablet 20 mg PO DAILY metoprolol succinate 25 mg tablet extended release 24 hr 12.5 mg PO QAM acetaminophen 500 mg Tablet 500 mg PO BID tamsulosin 0.4 mg capsule 0.4 mg PO QAM rosuvastatin 10 mg tablet 10 mg PO QAM calcium carbonate [Calcium 600] 600 mg calcium (1,500 mg) Tablet 600 mg PO QAM docusate sodium [Colace] 100 mg Capsule 100 mg PO HS oxycodone 5 mg tablet 5 mg PO QID PRN (Reason: Pain) Referrals Referrals: An Rowe MD [Primary Care Provider] -
[2024-10-27 14:20] LABS: Alanine Aminotransferase 29 U/L (7-52); Albumin Globulin Ratio 1.8 (0.9-2); Alkaline Phosphatase 134 U/L (34-104); Anion Gap 4 (3-11); Bilirubin,Total 1.0 mg/dl (0.2-1.0); Blood Urea Nitrogen 13 mg/dl (6-23); Calcium 8.8 mg/dl (8.6-10.3); Carbon Dioxide 25 mmol/L (21-32); Chloride 87 mmol/L (98-107); Creatinine Clr Calc Pharmacy 106.6 ml/min; Globulin 2.1 gm/dl (2.5-4.0); Glucose 85 mg/dl (70-99(Fasting)); Magnesium 1.8 mg/dl (1.7-2.4); Potassium 5.0 mmol/L (3.5-5.1); Sodium 116 mmol/L (136-145); Total Protein 5.8 gm/dl (6.0-8.3)
[2024-10-27 14:23] LABS: INR 1.0 (0.9-1.1); Partial Thromboplastin Time 33 Seconds (21-31); Prothrombin Time 10.6 Seconds (9.0-12.0); Thyroid Stimulating Hormone 1.290 uIu/ml (0.300-4.500)
--- NOTE | 2024-10-27 15:49 | History & Physical Report ---
Date of Service October 27, 2024 Assessment & Plan (1) Near syncope: Plan: While standing, consistent with orthostasis. Metoprolol placed on hold. Telemetry. (2) SIADH (syndrome of inappropriate ADH production): Plan: Hypoosmolar hyponatremia noted on admission. Fluid restriction. Serial labs. 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 (4) Hypertension: Plan: Current symptoms are consistent with orthostatic hypotension. Metoprolol was held Plan To be determined by response to treatment. Hopeful discharge to home within the next 2 to 3 days History of Present Illness Chief Complaint: Generalized weakness, near syncope Primary Care Provider: An Rowe MD 74-year-old white male with known small cell lung cancer with liver mets. He previously received chemotherapy per Dr. Gould, oncology. He developed weakness and lightheadedness over the past several days to weeks and had a near syncopal episode today. He came to the ED for evaluation. He was found to have hyponatremia and hypoosmolar state consistent with SIADH which is new for him. EKG reveals normal sinus rhythm with first-degree AV block and I suspect his near syncope is due to hypotension. Metoprolol will be held. He had a left Pleurx catheter removed from the left hemithorax on September 22 for left malignant effusion and there may be a residual small left apical pneumothorax seen on chest x-ray of no clinical significance at this time. Brain MRI scan done September 13 of this year was negative for mets. Repeat brain MRI scan has been ordered and is pending. He is admitted for further evaluation and treatment. Allergies Allergy/AdvReac Type Severity Reaction Status Date / Time amoxicillin [From Augmentin] Allergy Intermediate stomach Verified 10/27/24 14:58 pain clavulanic acid Allergy Intermediate stomach Verified 10/27/24 14:58 [From Augmentin] pain levofloxacin [From Levaquin] Allergy Mild . Verified 10/27/24 14:58 lisinopril AdvReac Mild Cough Verified 10/27/24 14:58 Home Medications Medication Instructions Recorded Confirmed Type cholecalciferol (vitamin D3) 25 25 mcg PO QAM 04/30/24 10/27/24 History mcg (1,000 unit) capsule apixaban 5 mg tablet (Eliquis) 5 mg PO BID #180 tabs 06/23/24 10/27/24 Rx polyethylene glycol 3350 17 17 g PO HS 08/25/24 10/27/24 History gram/dose oral powder (Miralax) acetaminophen 500 mg tablet 500 mg PO BID 08/26/24 10/27/24 History rosuvastatin 10 mg tablet 10 mg PO QAM 08/26/24 10/27/24 History tamsulosin 0.4 mg capsule 0.4 mg PO QAM 08/26/24 10/27/24 History valacyclovir 500 mg tablet 500 mg PO QAM #90 tabs 09/15/24 10/27/24 Rx omeprazole 40 mg capsule,delayed 40 mg PO QAM #90 caps 10/12/24 10/27/24 Rx release magnesium 250 mg tablet 250 mg PO DAILY 10/14/24 10/27/24 History metoprolol succinate 25 mg 12.5 mg PO QAM 10/14/24 10/27/24 History tablet,extended release 24 hr tadalafil 20 mg tablet 20 mg PO DAILY 10/14/24 10/27/24 History doxycycline hyclate 100 mg tablet 100 mg PO BID 7 days #14 tabs 10/21/24 10/27/24 Rx calcium carbonate (Calcium 600) 600 mg PO QAM 10/27/24 10/27/24 History docusate sodium 100 mg capsule 100 mg PO HS 10/27/24 10/27/24 History (Colace) oxycodone 5 mg tablet 5 mg PO QID PRN Pain 10/27/24 10/27/24 History Past Med/Surg History Problem List (Updated 10/27/24 @ 15:48 by Cas Nazario MD) SIADH (syndrome of inappropriate ADH production) Near syncope Pleural effusion Quality of life palliative care encounter Palliative care by specialist 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 Malignant pleural effusion Extensive stage primary small cell carcinoma of lung (Chronic 06/15/24) Anxiety disorder due to medical condition Cancer related pain 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 Lung mass Obstructive sleep apnea Primary hypertension Benign localized prostatic hyperplasia with lower urinary tract symptoms (LUTS) Elevated PSA Hypertension GERD without esophagitis Bilateral nonpulsatile tinnitus Obesity (BMI 30.0-34.9) Prediabetes (Chronic) Mixed hyperlipidemia Dyspnea on exertion Former smoker Myalgia Ingrown toenail of left foot with infection (Acute) 05/2020 Rib pain on right side Nephrolithiasis Acid reflux disease (Acute) Anxiety disorder (Acute) Cervicalgia (Acute) Genital herpes simplex (Acute) Hypercholesterolemia (Acute) Inhibited sexual excitement (Acute) Laryngopharyngeal reflux (Acute) Medical History Aortic stenosis Mild ascending aorta dilatation Extensive stage primary small cell carcinoma of lung 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 History of prediabetes Malignant pleural effusion Hx of hypercholesterolemia RAMIRES (dyspnea on exertion) Hx of tinnitus History of BPH Hx of anxiety disorder Hx of gastroesophageal reflux (GERD) History of atrial fibrillation History of hypertension Hx of basal cell carcinoma Sleep apnea Osteoarthritis History of kidney stones Malignant melanoma Surgical History History of removal of Port-a-Cath (09/01/24) Hx of chest tube placement History of thoracentesis History of uvulopalatopharyngoplasty History of colonoscopy History of prostate biopsy History of left inguinal hernia repair History of melanoma excision History of Mohs micrographic surgery for skin cancer History of wisdom tooth extraction History of carpal tunnel release of both wrists Status post correction of deviated nasal septum History of tonsillectomy and adenoidectomy Family History Brother Prostate cancer, Onset Age: 68 Mother Rheumatic fever Father Guillain-Sheldon disease Social History Smoking Status: Former smoker Tobacco Type: Cigarettes Age Started Using Tobacco: 16; Age Quit Using Tobacco: 46; packs per day: 1; Second Hand Exposure: No; Do You Dip or Chew Tobacco: No; Hx Alcohol Use: No Hx Substance Use: No Preferred Language: Guatemalan Communication Ability: Effective Hearing Ability: Normal Litigation Attorney Required: No Beliefs That Will Affect Care: None marital status: Current Living Situation: Spouse Current Living Situation Comment: [facility] current occupational status: retired current occupation: [employer] How many Children do You have: 0 Feels Safe at Home: Yes Childhood Exposure to Second-Hand Smoke: No Dental Care, Regularly: Yes Seatbelt Use: always Sunscreen Use: Yes Assistive Devices: Glasses Review of Systems 2 Review of Systems: Constitutionalno fever or chills. Generalized weakness and near syncope while standing ENTno blurred vision, no double vision, no epistaxis, no sore throat Respiratoryno cough, no wheezing, no shortness of breath Cardiacno palpitations, no chest pain, no syncope Jose nausea, vomiting, diarrhea, melena, hematochezia GUno urinary retention, no urinary incontinence, no dysuria, no hematuria Musculoskeletalno joint pain, no muscle tenderness Skinno bruising, no rashes, no pruritus Neurono isolated weakness, no paresthesia. Psychno depression, no anxiety Physical Exam 2 Physical Exam: General-alert and oriented x3, no fever, no chills HEENT-head atraumatic and normocephalic, pupils equal and reactive to light, extraocular muscles intact Neck-no lymphadenopathy or thyromegaly, trachea midline Chest-clear to auscultation. No rales, wheezing or rhonchi Cardiac-regular rate and rhythm, normal S1 and S2 Abdomen-normal bowel sounds, no hepatosplenomegaly Extremities-no cyanosis, clubbing, or edema Neuro-cranial nerves II through XII intact, motor and sensory function within normal limits, strength symmetrical, no focal deficits Psych-normal affect, normal mood Results & Data Results & Data Vital Signs (Past 12 Hours) Vital Signs Temp Pulse Pulse Resp BP BP Pulse Ox 10/27/24 13:54 61 10/27/24 13:15 62 14 120/73 97 10/27/24 13:13 62 14 96 10/27/24 13:13 96 10/27/24 12:28 36.7 C 68 20 113/72 96 O2 Del Method 10/27/24 13:54 10/27/24 13:15 Room Air 10/27/24 13:13 Room Air 10/27/24 13:13 Room Air 10/27/24 12:28 Room Air Laboratory Results 10/27/24 13:24 10/27/24 13:24 Code Status & VTE Plan Code Status Full code VTE Prophylaxis Plan VTE Prophylaxis will be ordered: Yes PG Care Time/CCT Total # of Minutes Spent Total Time Spent with Patient: Total time spent is greater than 50% in coordination of care (as documented) at patient's floor/unit and/or counseling patient: Coding Level of Care Code 45428 INT INP/OBS CARE MIN Diagnoses Near syncope R55 SIADH (syndrome of inappropriate ADH production) E22.2 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
[2024-10-27 16:40] LABS: Appearance Urine Turbid (Clear); Bacteria Urine Automated None Seen (None Seen); Cast Urine Automated 0-2 /lpf (0-2); Epithelial Cell Urine Auto 0-2 /hpf (0-2); Glucose Urine UA Negative (Negative); RBC Urine Automated 0-2 /hpf (0-2); WBC Urine Automated 0-5 /hpf (0-5)
[2024-10-27] MEDS ORDERED: ACETAMINOPHEN 325 MG TAB PO PRN (18:05)
[2024-10-27] MEDS ORDERED: ONDANSETRON INJ 2 MG/ML 2 ML VIAL IV PRN (18:05)
--- NOTE | 2024-10-27 18:11 | Electrocardiogram Report ---
Test Reason : Blood Pressure : */* mmHG Vent. Rate : 61 BPM Atrial Rate : 61 BPM P-R Int : 214 ms QRS Dur : 82 ms QT Int : 390 ms P-R-T Axes : 37 24 48 degrees QTcB Int : 392 ms Sinus rhythm with 1st degree A-V block Otherwise normal ECG When compared with ECG of 01-Jul-2024 11:52, Premature ventricular complexes are no longer Present PA interval has increased Vent. rate has decreased by 36 bpm Nonspecific T wave abnormality no longer evident in Inferior leads Nonspecific T wave abnormality no longer evident in Anterolateral leads QT has shortened Confirmed by Balta Rangel ([id number]) on 10/27/2024 6:10:55 PM Referred By: REFERRED SELF Confirmed By: Balta Rangel
[2024-10-27] MEDS: DOCUSATE SODIUM 100 MG CAP PO SCH (20:22)
[2024-10-27] MEDS: APIXABAN 5 MG TABLET PO SCH (20:22)
[2024-10-27] MEDS: POLYETHYLENE (MIRALAX) 17 GM PACK PO SCH (20:22)
[2024-10-27] MEDS: GADOBUTROL 65ML VIAL IV ONE (20:53)
--- NOTE | 2024-10-28 00:06 | Magnetic Resonance Report ---
Exam(s): MRI IACS EXAM: MR Head Without Intravenous Contrast, Internal Auditory Canal Protocol CLINICAL HISTORY: Reason for exam: H/o met SCLC now with ataxia, amb dysf, vision. TECHNIQUE: Magnetic resonance images of the head/brain without intravenous contrast in multiple planes using internal auditory canal protocol. COMPARISON: Prior brain MRI from August 29, 2024. FINDINGS: Cranial nerves: Unremarkable. No mass. No abnormal enhancement. Cochlea and semicircular canals: Unremarkable. Cerebellopontine angles: Unremarkable. No mass. Brain: Moderate nonspecific white matter changes. The flow voids at the base of the brain are intact.. There is an enhancing dural based lesion on the right tentorium measuring 7.6 x 6.0 x 4.9 mm. No hemorrhage. No evidence of abnormal enhancement. The dural venous sinuses are patent. Ventricles: Unremarkable as visualized. Bones/joints: There are numerous enhancing sclerotic lesions throughout the calvarium and proximal cervical spine. No acute fracture. Sinuses: Chronic maxillary and ethmoid sinusitis. No acute sinusitis. Mastoid air cells: Unremarkable as visualized. No mastoid effusion. Orbits: Unremarkable as visualized. IMPRESSION: There is a new enhancing lesion on the right tentorium measuring 7.6 x 6. 0 x 4.9 mm concerning for metastatic disease. Extensive metastatic disease through the calvarium and proximal cervical spine. Electronically signed by: Rachael High MD 10/28/24 00:05 AM
[2024-10-28 07:32] LABS: Anion Gap 5.0 (3-11); Blood Urea Nitrogen 11.0 mg/dl (6-23); Calcium 8.1 mg/dl (8.6-10.3); Carbon Dioxide 25.0 mmol/L (21-32); Chloride 86.0 mmol/L (98-107); Creatinine Clr Calc Pharmacy 110.2 ml/min; Glucose 91.0 mg/dl (70-99(Fasting)); Potassium 4.1 mmol/L (3.5-5.1); Sodium 116.0 mmol/L (136-145)
[2024-10-28] MEDS: CHOLECALCIFEROL 25 MCG (1000 UNITS) TAB PO SCH (10:41)
[2024-10-28] MEDS: ROSUVASTATIN CALCIUM 10 MG TAB PO SCH (10:41)
[2024-10-28] MEDS: CALCIUM CARBONATE 1250MG TAB PO SCH (10:41)
[2024-10-28] MEDS: TAMSULOSIN HCL 0.4 MG CAP PO SCH (10:42)
[2024-10-28] MEDS: METOPROLOL SUCC 25MG EXT REL TAB PO SCH (10:54)
[2024-10-28] MEDS: SODIUM CHLORIDE 1 GM TABLET PO SCH (10:54)
[2024-10-28] MEDS: FUROSEMIDE 40 MG/4 ML VIAL IV ONE (11:01)
[2024-10-28] MEDS: HEPARIN 100 UNIT/ML 5ML FLUSH FLUSH PRN (11:02)
--- NOTE | 2024-10-28 15:16 | Hospitalist Progress Note ---
Date of Service October 28, 2024 Assessment & Plan (1) Near syncope: Plan: While standing, consistent with orthostasis. Now resolved. Metoprolol has been restarted. Telemetry. (2) SIADH (syndrome of inappropriate ADH production): Plan: Hypoosmolar hyponatremia noted on admission. Sodium is low at 116 and unchanged since admission. Continue fluid restriction. 1 dose of parenteral Lasix today for free water diuresis. Start sodium chloride tablets. Serial labs. 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 (4) Hypertension: Plan: Symptoms on admission consistent with orthostatic hypotension. Now resolved. Metoprolol was temporarily held. Metoprolol has been restarted Plan Hopeful discharge to home within the next day or 2 Admission and Anticipated Discharge Date Admission Date: October 27, 2024 Subjective Alert and oriented. Pleasant. Sodium remains low at 116. Will administer 1 dose of Lasix today, October 28, for free water diuresis and add sodium chloride tablets. Metoprolol has been restarted. Continue daily lab evaluation. Oncology consultation is pending. Review of Systems 2 Review of Systems: Constitutionalno fever or chills. Generalized weakness and near syncope while standing ENTno blurred vision, no double vision, no epistaxis, no sore throat Respiratoryno cough, no wheezing, no shortness of breath Cardiacno palpitations, no chest pain, no syncope Jose nausea, vomiting, diarrhea, melena, hematochezia GUno urinary retention, no urinary incontinence, no dysuria, no hematuria Musculoskeletalno joint pain, no muscle tenderness Skinno bruising, no rashes, no pruritus Neurono isolated weakness, no paresthesia. Psychno depression, no anxiety Physical Exam 2 Physical Exam: General-alert and oriented x3, no fever, no chills HEENT-head atraumatic and normocephalic, pupils equal and reactive to light, extraocular muscles intact Neck-no lymphadenopathy or thyromegaly, trachea midline Chest-clear to auscultation. No rales, wheezing or rhonchi Cardiac-regular rate and rhythm, normal S1 and S2 Abdomen-normal bowel sounds, no hepatosplenomegaly Extremities-no cyanosis, clubbing, or edema Neuro-cranial nerves II through XII intact, motor and sensory function within normal limits, strength symmetrical, no focal deficits Psych-normal affect, normal mood Results & Data Results & Data Vital Signs (Past 12 Hours) Vital Signs Temp Pulse Pulse Pulse Resp BP Pulse Ox 10/28/24 13:02 76 10/28/24 11:23 36.6 C 63 20 121/75 94 10/28/24 08:04 36.5 C 63 20 131/80 97 10/28/24 06:15 82 10/28/24 03:42 36.4 C L 80 16 149/79 H 94 O2 Del Method 10/28/24 13:02 10/28/24 11:23 Room Air 10/28/24 08:04 Room Air 10/28/24 06:15 10/28/24 03:42 Room Air Laboratory Results 10/27/24 13:24 10/28/24 06:31 PG Care Time/CCT Total # of Minutes Spent Total Time Spent with Patient: Total time spent is greater than 50% in coordination of care (as documented) at patient's floor/unit and/or counseling patient: Coding Level of Care Code 83728 SUB INP/OBS CARE 3/50MIN Diagnoses Near syncope R55 SIADH (syndrome of inappropriate ADH production) E22.2 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
[2024-10-29 09:03] LABS: Anion Gap 4.0 (3-11); Blood Urea Nitrogen 15.0 mg/dl (6-23); Calcium 8.1 mg/dl (8.6-10.3); Carbon Dioxide 25.0 mmol/L (21-32); Chloride 88.0 mmol/L (98-107); Creatinine Clr Calc Pharmacy 105.3 ml/min; Glucose 94.0 mg/dl (70-99(Fasting)); Potassium 4.2 mmol/L (3.5-5.1); Sodium 117.0 mmol/L (136-145)
--- NOTE | 2024-10-29 10:54 | Oncology Consultation ---
Date of Consultation October 29, 2024 Assessment & Plan (1) SCLC (small cell lung carcinoma): (2) SIADH (syndrome of inappropriate ADH production): Plan -Agree with Fluid restriction and sodium tablets. Consider increasing to 1 g 3 times daily -Patient will follow-up with Dr. Gould as scheduled on 11/04/2024 for continuation of treatment with atezolizumab. Thank you for this consult. Please feel free to call if you have any further questions. History of Present Illness Reason for Consultation: SIADH, small cell lung cancer Attending Physician: Cas Nazario MD History of Present Illness 74-year-old gentleman with history of extensive stage small cell lung cancer status post 4 cycles of chemoimmunotherapy treatment with carboplatin, etoposide and atezolizumab completed on 09/09/2024. He was subsequently started on maintenance atezolizumab. Admitted with generalized weakness and vertigo. Labs showed hyponatremia with sodium of 116. Workup for hyponatremia suggestive of SIADH. Allergies Allergy/AdvReac Type Severity Reaction Status Date / Time amoxicillin [From Augmentin] Allergy Intermediate stomach Verified 10/27/24 14:58 pain clavulanic acid Allergy Intermediate stomach Verified 10/27/24 14:58 [From Augmentin] pain levofloxacin [From Levaquin] Allergy Mild . Verified 10/27/24 14:58 lisinopril AdvReac Mild Cough Verified 10/27/24 14:58 Home Medications Medication Instructions Recorded Confirmed Type cholecalciferol (vitamin D3) 25 25 mcg PO QAM 04/30/24 10/27/24 History mcg (1,000 unit) capsule apixaban 5 mg tablet (Eliquis) 5 mg PO BID #180 tabs 06/23/24 10/27/24 Rx polyethylene glycol 3350 17 17 g PO HS 08/25/24 10/27/24 History gram/dose oral powder (Miralax) acetaminophen 500 mg tablet 500 mg PO BID 08/26/24 10/27/24 History rosuvastatin 10 mg tablet 10 mg PO QAM 08/26/24 10/27/24 History tamsulosin 0.4 mg capsule 0.4 mg PO QAM 08/26/24 10/27/24 History valacyclovir 500 mg tablet 500 mg PO QAM #90 tabs 09/15/24 10/27/24 Rx omeprazole 40 mg capsule,delayed 40 mg PO QAM #90 caps 10/12/24 10/27/24 Rx release magnesium 250 mg tablet 250 mg PO DAILY 10/14/24 10/27/24 History metoprolol succinate 25 mg 12.5 mg PO QAM 10/14/24 10/27/24 History tablet,extended release 24 hr tadalafil 20 mg tablet 20 mg PO DAILY 10/14/24 10/27/24 History doxycycline hyclate 100 mg tablet 100 mg PO BID 7 days #14 tabs 10/21/24 10/27/24 Rx calcium carbonate (Calcium 600) 600 mg PO QAM 10/27/24 10/27/24 History docusate sodium 100 mg capsule 100 mg PO HS 10/27/24 10/27/24 History (Colace) oxycodone 5 mg tablet 5 mg PO QID PRN Pain 10/27/24 10/27/24 History Patient History Medical History Aortic stenosis mild per 05/2024 ECHO Mild ascending aorta dilatation mildly dilated ascending aorta: 4.5cm (05/2024 ECHO) 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; following with and undergoing chemo and immunotherapy 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 dx 05/2024 History of prediabetes "not a current diagnosis" per pt Malignant pleural effusion dx 06/2024 [facility]; s/p pleurex cath placement 07/04/24; pt saw pulm and drained 08/04/24; catheter remains in place Hx of hypercholesterolemia RAMIRES (dyspnea on exertion) hx, "no recent issues" Hx of tinnitus History of BPH Hx of anxiety disorder Hx of gastroesophageal reflux (GERD) History of atrial fibrillation currently on eliquis, no longer has to see cardiology History of hypertension recent med changes 2/2 hypotensive with chemo tx Hx of basal cell carcinoma Sleep apnea no longer uses cpap Osteoarthritis History of kidney stones no sx. Malignant melanoma hx, removed Surgical History History of removal of Port-a-Cath (09/01/24) Insertion of Access Port with Fluoroscopy Left Subclavian(Left) - Lamont Young DO Hx of chest tube placement Pleurx cath placement 06/30/24 History of thoracentesis 06/15/24 and 07/24/24, both at [facility] History of uvulopalatopharyngoplasty for his sleep apnea History of colonoscopy History of prostate biopsy benign History of left inguinal hernia repair History of melanoma excision History of Mohs micrographic surgery for skin cancer on side of nose History of wisdom tooth extraction History of carpal tunnel release of both wrists Status post correction of deviated nasal septum History of tonsillectomy and adenoidectomy Family History Brother Prostate cancer, Onset Age: 68 ADT injections; Mother Rheumatic fever Father Guillain-Tram disease Social History Smoking Status: Former smoker Tobacco Type: Cigarettes Age Started Using Tobacco: 16; Age Quit Using Tobacco: 46; packs per day: 1; Second Hand Exposure: No; Do You Dip or Chew Tobacco: No; Hx Alcohol Use: No Hx Substance Use: No Preferred Language: British Communication Ability: Effective Hearing Ability: Normal Site Planner Required: No Beliefs That Will Affect Care: None marital status: Current Living Situation: Other Current Living Situation Comment: patient lives at home with friends current occupational status: retired current occupation: [employer] How many Children do You have: 0 Feels Safe at Home: Yes Childhood Exposure to Second-Hand Smoke: No Dental Care, Regularly: Yes Seatbelt Use: always Sunscreen Use: Yes Assistive Devices: Cane and Walker Results & Data Vital Signs (Past 12 Hours) Vital Signs Temp Pulse Pulse Pulse Resp BP BP 10/29/24 07:24 36.6 C 66 16 125/87 10/29/24 05:59 69 10/29/24 03:47 36.5 C 66 16 116/69 10/28/24 23:17 36.6 C 64 18 119/67 Pulse Ox O2 Del Method 10/29/24 07:24 95 Room Air 10/29/24 05:59 10/29/24 03:47 94 Room Air 10/28/24 23:17 95 Room Air
[2024-10-29] MEDS: TOLVAPTAN 15 MG TABLET PO SCH (11:46)
[2024-10-29] MEDS: COUGH DROP (SUGAR FREE) LOZ 24 LOZ/1 BOX BUCCAL PRN (13:05)
--- NOTE | 2024-10-29 13:25 | Hospitalist Progress Note ---
Date of Service October 29, 2024 Assessment & Plan (1) Near syncope: Plan: While standing, consistent with orthostasis. Now resolved. Metoprolol has been restarted. Telemetry. (2) SIADH (syndrome of inappropriate ADH production): Plan: Hypoosmolar hyponatremia noted on admission. Sodium only improved slightly after interventions yesterday, October 28. He remains on fluid restriction and oral sodium chloride replacement. Tolvaptan started today, October 29. Serial labs. 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 (4) Hypertension: Plan: Symptoms on admission consistent with orthostatic hypotension. Now resolved. Metoprolol was temporarily held on admission and has been restarted Plan Hopeful discharge to home tomorrow, October 30, if his sodium improves Admission and Anticipated Discharge Date Admission Date: October 27, 2024 Subjective Alert and oriented. is at the bedside. Sodium only improved to 117 after interventions done yesterday, October 28. Tolvaptan started today, October 29. Continue oral sodium chloride replacement. Oncology consultation requested and pending. Hopefully sodium will improve and he can go home tomorrow, October 30, on tolvaptan and with continued lab studies on a weekly basis for the next several weeks. Review of Systems 2 Review of Systems: Constitutionalno fever or chills. Generalized weakness and near syncope while standing ENTno blurred vision, no double vision, no epistaxis, no sore throat Respiratoryno cough, no wheezing, no shortness of breath Cardiacno palpitations, no chest pain, no syncope Jose nausea, vomiting, diarrhea, melena, hematochezia GUno urinary retention, no urinary incontinence, no dysuria, no hematuria Musculoskeletalno joint pain, no muscle tenderness Skinno bruising, no rashes, no pruritus Neurono isolated weakness, no paresthesia. Psychno depression, no anxiety Physical Exam 2 Physical Exam: General-alert and oriented x3, no fever, no chills HEENT-head atraumatic and normocephalic, pupils equal and reactive to light, extraocular muscles intact Neck-no lymphadenopathy or thyromegaly, trachea midline Chest-clear to auscultation. No rales, wheezing or rhonchi Cardiac-regular rate and rhythm, normal S1 and S2 Abdomen-normal bowel sounds, no hepatosplenomegaly Extremities-no cyanosis, clubbing, or edema Neuro-cranial nerves II through XII intact, motor and sensory function within normal limits, strength symmetrical, no focal deficits Psych-normal affect, normal mood Results & Data Results & Data Vital Signs (Past 12 Hours) Vital Signs Temp Pulse Pulse Pulse Resp BP BP 10/29/24 11:29 36.4 C L 63 16 116/75 10/29/24 07:24 36.6 C 66 16 125/87 10/29/24 05:59 69 10/29/24 03:47 36.5 C 66 16 116/69 Pulse Ox O2 Del Method 10/29/24 11:29 97 Room Air 10/29/24 07:24 95 Room Air 10/29/24 05:59 10/29/24 03:47 94 Room Air Laboratory Results 10/27/24 13:24 10/29/24 08:05 PG Care Time/CCT Total # of Minutes Spent Total Time Spent with Patient: Total time spent is greater than 50% in coordination of care (as documented) at patient's floor/unit and/or counseling patient: Coding Level of Care Code 36798 SUB INP/OBS CARE 3/50MIN Diagnoses Near syncope R55 SIADH (syndrome of inappropriate ADH production) E22.2 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
[2024-10-29 15:05] VITALS: RESP 18
[2024-10-30 07:04] LABS: Anion Gap 4.0 (3-11); Blood Urea Nitrogen 16.0 mg/dl (6-23); Calcium 9.0 mg/dl (8.6-10.3); Carbon Dioxide 26.0 mmol/L (21-32); Chloride 97.0 mmol/L (98-107); Creatinine Clr Calc Pharmacy 98.1 ml/min; Glucose 98.0 mg/dl (70-99(Fasting)); Potassium 4.5 mmol/L (3.5-5.1); Sodium 127.0 mmol/L (136-145)
[2024-10-30 07:46] VITALS: TEMP 97.5; O2SAT 95
--- NOTE | 2024-10-30 10:41 | Discharge Summary ---
Discharge Summary Date of Service October 30, 2024 Principal Dx & Hospital Course #1 = Principal Diagnosis (1) Near syncope: While standing, consistent with orthostasis. Now resolved. Metoprolol has been restarted. Telemetry. (2) SIADH (syndrome of inappropriate ADH production): Hypoosmolar hyponatremia noted on admission. Sodium has now improved to 127 with tolvaptan which we will continue daily at discharge. Oral sodium chloride tablets have been discontinued. He was given a lab slip for weekly BMP going forward for the next 3 weeks. Results will be sent to his primary care provider. He was treated with fluid restriction while hospitalized. 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 Gould is on vacation (4) Hypertension: Symptoms on admission consistent with orthostatic hypotension. Now resolved. Metoprolol was temporarily held on admission and has been restarted Plan Home today on tolvaptan, October 30 Admission HPI Per Admitting Provider 74-year-old white male with known small cell lung cancer with liver mets. He previously received chemotherapy per Dr. Gould, oncology. He developed weakness and lightheadedness over the past several days to weeks and had a near syncopal episode today. He came to the ED for evaluation. He was found to have hyponatremia and hypoosmolar state consistent with SIADH which is new for him. EKG reveals normal sinus rhythm with first-degree AV block and I suspect his near syncope is due to hypotension. Metoprolol will be held. He had a left Pleurx catheter removed from the left hemithorax on September 22 for left malignant effusion and there may be a residual small left apical pneumothorax seen on chest x-ray of no clinical significance at this time. Brain MRI scan done September 13 of this year was negative for mets. Repeat brain MRI scan has been ordered and is pending. He is admitted for further evaluation and treatment. Discharge Exam General-alert and oriented x3, no fever, no chills HEENT-head atraumatic and normocephalic, pupils equal and reactive to light, extraocular muscles intact Neck-no lymphadenopathy or thyromegaly, trachea midline Chest-clear to auscultation. No rales, wheezing or rhonchi Cardiac-regular rate and rhythm, normal S1 and S2 Abdomen-normal bowel sounds, no hepatosplenomegaly Extremities-no cyanosis, clubbing, or edema Neuro-cranial nerves II through XII intact, motor and sensory function within normal limits, strength symmetrical, no focal deficits Psych-normal affect, normal mood Discharge Plan Discharge Items Patient Disposition: Home - Self-Care Reason For Visit: NEAR SYNCOPE, SIADH Discharge Diagnosis: SIADH, near syncope Condition on Discharge: Good Activity: Resume your previous activity Non-emergency contact: Primary Care Provider and Oncologist Call non-emergency contact if: your symptoms worsen Follow-up/Referrals: An Rowe MD [Primary Care Provider] - Diet: Regular Addtl Attending Provider Instructions: Take tolvaptan once a day to maintain sodium level. Weekly blood testing ordered for the next 3 weeks. This does not have to be fasting. All other medications remain the same. Follow-up with primary care provider and oncologist as soon as possible Pending Studies at Discharge: No Stand-Alone Forms: My [facility] [employer], Smoking Cessation Medications and DC Order Prescriptions: New tolvaptan [Samsca] 15 mg Tablet 15 mg PO QAM Qty: 20 0RF Continued polyethylene glycol 3350 [Miralax] 17 gram/dose powder 17 g PO HS valacyclovir 500 mg tablet 500 mg PO QAM Qty: 90 3RF omeprazole 40 mg capsule,delayed release(DR/EC) 40 mg PO QAM Qty: 90 3RF doxycycline hyclate 100 mg tablet 100 mg PO BID 7 Days Qty: 14 0RF Rx Instructions: Start Date 10/21/24 x7 day supply Eliquis 5 mg tablet 5 mg PO BID Qty: 180 0RF Hold Instructions: Resume on 09/02/24. cholecalciferol (vitamin D3) 25 mcg (1,000 unit) capsule 25 mcg PO QAM magnesium 250 mg tablet 250 mg PO DAILY tadalafil 20 mg tablet 20 mg PO DAILY metoprolol succinate 25 mg tablet extended release 24 hr 12.5 mg PO QAM acetaminophen 500 mg Tablet 500 mg PO BID tamsulosin 0.4 mg capsule 0.4 mg PO QAM rosuvastatin 10 mg tablet 10 mg PO QAM calcium carbonate [Calcium 600] 600 mg calcium (1,500 mg) Tablet 600 mg PO QAM docusate sodium [Colace] 100 mg Capsule 100 mg PO HS oxycodone 5 mg tablet 5 mg PO QID PRN (Reason: Pain) Discharge Orders: Discharge Order (Routine); Ordered 10/30/24 Ordered By: Cas Nazario Admission Data Admit Date/Time: 10/27/24 15:38 Attending Provider: Cas Nazario Admit Provider: Cas Nazario Primary Care Provider: An Rowe Other Providers: Cas Nazario; Lamont Gould Hospital Stay Data Consultations 10/27/24 14:49 ED Decision to Admit Stat 10/27/24 18:05 Consult Oncology Routine Diagnostic Imagining Performed 10/27/24 13:32 MRI brain [MR brain IAC wo/w con] Stat Pending Results Patient Have Any Pending Studies at Discharge: No Discharge Instructions Given to Patient (Per Discharging Provider) Take tolvaptan once a day to maintain sodium level. Weekly blood testing ordered for the next 3 weeks. This does not have to be fasting. All other medications remain the same. 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
[2024-10-30 11:15] VITALS: BP 141/81; PULSE 63
[2024-10-31] MEDS ORDERED: TOLVAPTAN 15 MG TABLET PO SCH ×2 (09:00)
== END 2024-10-30 11:52 | disposition home or self-care (01) | DRG 644 ==
LOC: SUATTDRO → ED 12:11 → EDINP 15:38 → 2N 17:36